=== PATIENT | male | born 1945 | race Caucasian/White ===

== ENCOUNTER 2017-10-15 15:45 | Inpatient (IN) | payer MEDICARE, BC ==
[2017-10-15] MEDS ORDERED: NYSTATIN CREAM 15 GM TOP (17:45)
[2017-10-15] MEDS ORDERED: NITROGLYCERIN 0.3 MG SUBL TAB SL (17:45)
[2017-10-15 17:48] LABS: INR 1.13; PROTHROMBIN TIME 14.7 SECONDS (12.1-14.4)
[2017-10-15 17:49] LABS: PARTIAL THROMBOPLASTIN TIME 27.8 SECONDS (25.4-37.6)
[2017-10-15 17:50] LABS: TROPONIN I 0.02 NG/ML (< 0.10)
[2017-10-15 17:58] LABS: ALBUMIN 3.1 GM/DL (3.2-5.2); ALKALINE PHOSPHATASE 47 U/L (45-117); ALT/SGPT 29 U/L (12-78); ANION GAP 7 MEQ/L (8-16); AST/SGOT 37 U/L (7-37); BILIRUBIN,TOTAL 2.2 MG/DL (0.2-1.0); BLOOD UREA NITROGEN 25 MG/DL (7-18); CALCIUM LEVEL 8.3 MG/DL (8.8-10.2); CARBON DIOXIDE LEVEL 29 MEQ/L (21-32); CHLORIDE LEVEL 106 MEQ/L (98-107); CREATININE FOR GFR 1.28 MG/DL (0.70-1.30); GLOMERULAR FILTRATION RATE 58.5 (>42); GLUCOSE, FASTING 91 MG/DL (70-100); MAGNESIUM LEVEL 2.2 MG/DL (1.8-2.4); NT-PRO BNP 413 PG/ML (<125); POTASSIUM SERUM 4.1 MEQ/L (3.5-5.1); SODIUM LEVEL 142 MEQ/L (136-145); TOTAL PROTEIN 6.2 GM/DL (6.4-8.2)
[2017-10-15 18:32] LABS: HEMATOCRIT 30.6 % (42.0-52.0); HEMOGLOBIN 10.1 g/dl (13.5-17.5); MEAN CORPUSCULAR HEMOGLOBIN 28.8 pg (27.0-33.0); MEAN CORPUSCULAR VOLUME 87.2 fl (80.0-96.0); PLATELET COUNT, AUTOMATED 173 10^3/uL (150-450); RED BLOOD COUNT 3.51 10^6/uL (4.30-6.10); RED CELL DISTRIBUTION WIDTH 17.2 % (11.5-14.5); WHITE BLOOD COUNT 10.6 10^3/uL (4.0-10.0)
[2017-10-15] MEDS: POTASSIUM CHLORIDE 10 MEQ SR TABLET PO (21:45)
[2017-10-15] MEDS: ATORVASTATIN 20 MG TAB PO (21:45)
[2017-10-15] MEDS: FENOFIBRATE 145 MG TAB (TRICOR) PO (21:45)
[2017-10-15] MEDS: traZODone 50 MG TAB PO (21:46)
[2017-10-15] MEDS: TIMOLOL MALEATE 0.5% OPHTH SOLN 5 ML OU (21:46)
[2017-10-15] MEDS: PANTOPRAZOLE 40MG INJ (PROTONIX) (C9113) IV (21:46)
[2017-10-15] MEDS: SINEMET 25-100 MG TAB PO (21:47)
[2017-10-15] MEDS: rOPINIRole 1MG TAB PO (21:48)
[2017-10-15] MEDS: PREGABALIN 75 MG CAP(LYRICA) PO (21:48)
[2017-10-15 23:05] LABS: HEMATOCRIT 30.3 % (42.0-52.0); HEMOGLOBIN 9.7 g/dl (13.5-17.5)
[2017-10-15 23:30] LABS: TROPONIN I 0.02 NG/ML (< 0.10)
[2017-10-16 05:45] LABS: HEMATOCRIT 28.7 % (42.0-52.0); HEMOGLOBIN 9.1 g/dl (13.5-17.5); MEAN CORPUSCULAR HEMOGLOBIN 28.9 pg (27.0-33.0); MEAN CORPUSCULAR HGB CONC 31.7 g/dl (32.0-36.5); MEAN CORPUSCULAR VOLUME 91.1 fl (80.0-96.0); PLATELET COUNT, AUTOMATED 174 10^3/uL (150-450); RED BLOOD COUNT 3.15 10^6/uL (4.30-6.10); RED CELL DISTRIBUTION WIDTH 17.4 % (11.5-14.5); WHITE BLOOD COUNT 7.7 10^3/uL (4.0-10.0)
[2017-10-16 06:02] LABS: ANION GAP 6 MEQ/L (8-16); BLOOD UREA NITROGEN 21 MG/DL (7-18); CALCIUM LEVEL 8.3 MG/DL (8.8-10.2); CARBON DIOXIDE LEVEL 29 MEQ/L (21-32); CHLORIDE LEVEL 106 MEQ/L (98-107); CREATININE FOR GFR 1.13 MG/DL (0.70-1.30); GLOMERULAR FILTRATION RATE > 60.0 (>42); GLUCOSE, FASTING 100 MG/DL (70-100); POTASSIUM SERUM 3.9 MEQ/L (3.5-5.1); SODIUM LEVEL 141 MEQ/L (136-145)
[2017-10-16 08:27] LABS: HEMATOCRIT 32.6 % (42.0-52.0); HEMOGLOBIN 10.2 g/dl (13.5-17.5)
[2017-10-16] MEDS: SINEMET 25-100 MG TAB PO ×2 (09:37→20:31)
[2017-10-16] MEDS: POTASSIUM CHLORIDE 10 MEQ SR TABLET PO ×4 (09:37→20:30)
[2017-10-16] MEDS: SERTRALINE 100 MG TAB PO (09:37)
[2017-10-16] MEDS: TIMOLOL MALEATE 0.5% OPHTH SOLN 5 ML OU ×2 (09:37→20:31)
[2017-10-16] MEDS: TORSEMIDE (DEMADEX) 50 MG PER 1/2 TAB PO (09:37)
[2017-10-16] MEDS: SPIRONOLACTONE 12.5MG PER 1/2 TABLET PO (09:37)
[2017-10-16] MEDS: PANTOPRAZOLE 40MG INJ (PROTONIX) (C9113) IV ×2 (09:38→20:31)
[2017-10-16] MEDS: PREGABALIN 75 MG CAP(LYRICA) PO ×2 (09:38→20:30)
[2017-10-16] MEDS: GOLYTELY SOLN 4000 ML BTL PO (16:08)
[2017-10-16] MEDS: BISACODYL 5 MG TAB PO (17:01)
[2017-10-16] MEDS ORDERED: SLF 3 ML SYR IV (17:30)
[2017-10-16] MEDS: traZODone 50 MG TAB PO (20:30)
[2017-10-16] MEDS: ATORVASTATIN 20 MG TAB PO (20:30)
[2017-10-16] MEDS: rOPINIRole 1MG TAB PO (20:30)
[2017-10-16] MEDS: FENOFIBRATE 145 MG TAB (TRICOR) PO (20:30)
[2017-10-16] MEDS: SLF 3 ML SYR IV (20:31)
[2017-10-17 05:14] LABS: HEMATOCRIT 29.6 % (42.0-52.0); HEMOGLOBIN 9.3 g/dl (13.5-17.5); MEAN CORPUSCULAR HEMOGLOBIN 28.4 pg (27.0-33.0); MEAN CORPUSCULAR HGB CONC 31.4 g/dl (32.0-36.5); MEAN CORPUSCULAR VOLUME 90.5 fl (80.0-96.0); PLATELET COUNT, AUTOMATED 180 10^3/uL (150-450); RED BLOOD COUNT 3.27 10^6/uL (4.30-6.10); WHITE BLOOD COUNT 7.2 10^3/uL (4.0-10.0)
[2017-10-17 05:36] LABS: ANION GAP 9 MEQ/L (8-16); BLOOD UREA NITROGEN 18 MG/DL (7-18); CALCIUM LEVEL 8.4 MG/DL (8.8-10.2); CARBON DIOXIDE LEVEL 29 MEQ/L (21-32); CHLORIDE LEVEL 105 MEQ/L (98-107); CREATININE FOR GFR 1.19 MG/DL (0.70-1.30); GLOMERULAR FILTRATION RATE > 60.0 (>42); GLUCOSE, FASTING 101 MG/DL (70-100); POTASSIUM SERUM 3.8 MEQ/L (3.5-5.1); SODIUM LEVEL 143 MEQ/L (136-145)
[2017-10-17] MEDS: SLF 3 ML SYR IV ×3 (06:00→21:12)
[2017-10-17] MEDS: TORSEMIDE (DEMADEX) 50 MG PER 1/2 TAB PO (08:37)
[2017-10-17] MEDS: PREGABALIN 75 MG CAP(LYRICA) PO ×2 (08:37→21:11)
[2017-10-17] MEDS: SERTRALINE 100 MG TAB PO (08:37)
[2017-10-17] MEDS: PANTOPRAZOLE 40MG INJ (PROTONIX) (C9113) IV ×2 (08:37→21:09)
[2017-10-17] MEDS: SPIRONOLACTONE 12.5MG PER 1/2 TABLET PO (08:37)
[2017-10-17] MEDS: SINEMET 25-100 MG TAB PO ×2 (08:37→21:10)
[2017-10-17] MEDS: POTASSIUM CHLORIDE 10 MEQ SR TABLET PO ×4 (08:37→21:11)
[2017-10-17] MEDS: TIMOLOL MALEATE 0.5% OPHTH SOLN 5 ML OU ×2 (08:38→21:11)
[2017-10-17] MEDS ORDERED: LIDOCAINE 2% INJ 100 MG/5 ML SYRINGE As Ordered (14:25)
[2017-10-17] MEDS ORDERED: PROPOFOL 200 MG/20 ML VIAL As Ordered (14:25)
[2017-10-17] MEDS: ATORVASTATIN 20 MG TAB PO (21:09)
[2017-10-17] MEDS: rOPINIRole 1MG TAB PO (21:10)
[2017-10-17] MEDS: FENOFIBRATE 145 MG TAB (TRICOR) PO (21:11)
[2017-10-17] MEDS: traZODone 50 MG TAB PO (21:11)
[2017-10-18] MEDS: SLF 3 ML SYR IV ×3 (05:16→22:04)
[2017-10-18 05:58] LABS: HEMATOCRIT 29.3 % (42.0-52.0); MEAN CORPUSCULAR HEMOGLOBIN 28.3 pg (27.0-33.0); MEAN CORPUSCULAR HGB CONC 30.7 g/dl (32.0-36.5); MEAN CORPUSCULAR VOLUME 92.1 fl (80.0-96.0); PLATELET COUNT, AUTOMATED 191 10^3/uL (150-450); RED BLOOD COUNT 3.18 10^6/uL (4.30-6.10); RED CELL DISTRIBUTION WIDTH 16.7 % (11.5-14.5); WHITE BLOOD COUNT 7.3 10^3/uL (4.0-10.0)
[2017-10-18 06:10] LABS: ANION GAP 3 MEQ/L (8-16); BLOOD UREA NITROGEN 21 MG/DL (7-18); CALCIUM LEVEL 8.5 MG/DL (8.8-10.2); CARBON DIOXIDE LEVEL 33 MEQ/L (21-32); CHLORIDE LEVEL 104 MEQ/L (98-107); CREATININE FOR GFR 1.37 MG/DL (0.70-1.30); GLOMERULAR FILTRATION RATE 54.1 (>42); GLUCOSE, FASTING 109 MG/DL (70-100); POTASSIUM SERUM 4.1 MEQ/L (3.5-5.1); SODIUM LEVEL 140 MEQ/L (136-145)
[2017-10-18] MEDS: NS 250 ML IV (06:54)
[2017-10-18] MEDS ORDERED: TORSEMIDE 10 MG TABLET PO (09:00)
[2017-10-18] MEDS ORDERED: SPIRONOLACTONE 12.5MG PER 1/2 TABLET PO (09:00)
[2017-10-18] MEDS: PANTOPRAZOLE 40MG INJ (PROTONIX) (C9113) IV ×2 (09:17→22:03)
[2017-10-18] MEDS: TIMOLOL MALEATE 0.5% OPHTH SOLN 5 ML OU ×2 (09:17→22:04)
[2017-10-18] MEDS: POTASSIUM CHLORIDE 10 MEQ SR TABLET PO ×4 (09:18→22:04)
[2017-10-18] MEDS: SINEMET 25-100 MG TAB PO ×2 (09:18→22:04)
[2017-10-18] MEDS: PREGABALIN 75 MG CAP(LYRICA) PO ×2 (09:18→22:03)
[2017-10-18] MEDS: SERTRALINE 100 MG TAB PO (09:18)
[2017-10-18] MEDS: APIXABAN 5 MG TAB (ELIQUIS) PO ×2 (13:59→22:04)
[2017-10-18] MEDS: FENOFIBRATE 145 MG TAB (TRICOR) PO (22:03)
[2017-10-18] MEDS: ATORVASTATIN 20 MG TAB PO (22:03)
[2017-10-18] MEDS: rOPINIRole 1MG TAB PO (22:03)
[2017-10-18] MEDS: traZODone 50 MG TAB PO (22:03)
[2017-10-19] MEDS: SLF 3 ML SYR IV ×3 (05:28→20:15)
[2017-10-19 06:19] LABS: HEMATOCRIT 28.7 % (42.0-52.0); HEMOGLOBIN 8.9 g/dl (13.5-17.5); MEAN CORPUSCULAR VOLUME 93.5 fl (80.0-96.0); PLATELET COUNT, AUTOMATED 170 10^3/uL (150-450); RED BLOOD COUNT 3.07 10^6/uL (4.30-6.10); WHITE BLOOD COUNT 6.5 10^3/uL (4.0-10.0)
[2017-10-19 06:40] LABS: ANION GAP 4 MEQ/L (8-16); BLOOD UREA NITROGEN 20 MG/DL (7-18); CALCIUM LEVEL 8.8 MG/DL (8.8-10.2); CARBON DIOXIDE LEVEL 30 MEQ/L (21-32); CHLORIDE LEVEL 108 MEQ/L (98-107); CREATININE FOR GFR 1.32 MG/DL (0.70-1.30); GLOMERULAR FILTRATION RATE 56.4 (>42); GLUCOSE, FASTING 114 MG/DL (70-100); POTASSIUM SERUM 4.3 MEQ/L (3.5-5.1); SODIUM LEVEL 142 MEQ/L (136-145)
[2017-10-19] MEDS ORDERED: SPIRONOLACTONE 12.5MG PER 1/2 TABLET PO (09:00)
[2017-10-19] MEDS ORDERED: TORSEMIDE (DEMADEX) 50 MG PER 1/2 TAB PO (09:00)
[2017-10-19] MEDS: PANTOPRAZOLE 40MG INJ (PROTONIX) (C9113) IV ×2 (09:37→20:12)
[2017-10-19] MEDS: POTASSIUM CHLORIDE 10 MEQ SR TABLET PO ×4 (09:38→20:13)
[2017-10-19] MEDS: TORSEMIDE 10 MG TABLET PO (09:38)
[2017-10-19] MEDS: SERTRALINE 100 MG TAB PO (09:38)
[2017-10-19] MEDS: PREGABALIN 75 MG CAP(LYRICA) PO ×2 (09:38→20:13)
[2017-10-19] MEDS: APIXABAN 5 MG TAB (ELIQUIS) PO ×2 (09:38→20:13)
[2017-10-19] MEDS: SPIRONOLACTONE 12.5MG PER 1/2 TABLET PO (09:38)
[2017-10-19] MEDS: SINEMET 25-100 MG TAB PO ×2 (09:38→20:13)
[2017-10-19] MEDS: TIMOLOL MALEATE 0.5% OPHTH SOLN 5 ML OU ×2 (09:39→20:14)
[2017-10-19] MEDS: FUROSEMIDE 20 MG/2 ML VIAL (J1940) IV (11:01)
[2017-10-19] MEDS: rOPINIRole 1MG TAB PO (20:12)
[2017-10-19] MEDS: FENOFIBRATE 145 MG TAB (TRICOR) PO (20:13)
[2017-10-19] MEDS: traZODone 50 MG TAB PO (20:13)
[2017-10-19] MEDS: ATORVASTATIN 20 MG TAB PO (20:13)
[2017-10-20] MEDS: SLF 3 ML SYR IV (05:21)
[2017-10-20 06:30] LABS: HEMATOCRIT 28.6 % (42.0-52.0); MEAN CORPUSCULAR HEMOGLOBIN 28.6 pg (27.0-33.0); MEAN CORPUSCULAR HGB CONC 31.5 g/dl (32.0-36.5); MEAN CORPUSCULAR VOLUME 90.8 fl (80.0-96.0); PLATELET COUNT, AUTOMATED 174 10^3/uL (150-450); RED BLOOD COUNT 3.15 10^6/uL (4.30-6.10); WHITE BLOOD COUNT 7.4 10^3/uL (4.0-10.0)
[2017-10-20 06:47] LABS: ANION GAP 5 MEQ/L (8-16); BLOOD UREA NITROGEN 20 MG/DL (7-18); CALCIUM LEVEL 9.1 MG/DL (8.8-10.2); CARBON DIOXIDE LEVEL 31 MEQ/L (21-32); CHLORIDE LEVEL 108 MEQ/L (98-107); CREATININE FOR GFR 1.45 MG/DL (0.70-1.30); GLOMERULAR FILTRATION RATE 50.6 (>42); GLUCOSE, FASTING 100 MG/DL (70-100); POTASSIUM SERUM 4.3 MEQ/L (3.5-5.1); SODIUM LEVEL 144 MEQ/L (136-145)
[2017-10-20] MEDS: PANTOPRAZOLE 40MG INJ (PROTONIX) (C9113) IV (08:24)
[2017-10-20] MEDS: SPIRONOLACTONE 12.5MG PER 1/2 TABLET PO (08:24)
[2017-10-20] MEDS: TORSEMIDE (DEMADEX) 50 MG PER 1/2 TAB PO (08:25)
[2017-10-20] MEDS: PREGABALIN 75 MG CAP(LYRICA) PO (08:25)
[2017-10-20] MEDS: SINEMET 25-100 MG TAB PO (08:25)
[2017-10-20] MEDS: TIMOLOL MALEATE 0.5% OPHTH SOLN 5 ML OU (08:25)
[2017-10-20] MEDS: SERTRALINE 100 MG TAB PO (08:25)
[2017-10-20] MEDS: APIXABAN 5 MG TAB (ELIQUIS) PO (08:25)
[2017-10-20] MEDS: POTASSIUM CHLORIDE 10 MEQ SR TABLET PO (08:25)
== END 2017-10-20 14:04 | disposition home or self-care (01) | DRG 378 ==
LOC: M PCU 15:45
PROVIDERS: Internal Medicine
PROC: 0DBL8ZX Excision of Transverse Colon, Via Natural or Artificial Opening Endoscopic, Diagnostic (ICD-10-PCS; principal; 2017-10-17 14:20)
PROC: 0DBK8ZX Excision of Ascending Colon, Via Natural or Artificial Opening Endoscopic, Diagnostic (ICD-10-PCS; 2017-10-17 14:20)
PROC: 0DB68ZX Excision of Stomach, Via Natural or Artificial Opening Endoscopic, Diagnostic (ICD-10-PCS; 2017-10-17 14:20)
DX: K92.2 Gastrointestinal hemorrhage, unspecified (principal); D62 Acute posthemorrhagic anemia; N17.9 Acute kidney failure, unspecified; I25.10 Atherosclerotic heart disease of native coronary artery without angina pectoris; G47.33 Obstructive sleep apnea (adult) (pediatric); K21.9 Gastro-esophageal reflux disease without esophagitis; I11.0 Hypertensive heart disease with heart failure; I50.9 Heart failure, unspecified; Z86.73 Personal history of transient ischemic attack (TIA), and cerebral infarction without residual deficits; I48.91 Unspecified atrial fibrillation; Z79.01 Long term (current) use of anticoagulants; F41.9 Anxiety disorder, unspecified; G25.81 Restless legs syndrome; E78.5 Hyperlipidemia, unspecified; Z79.899 Other long term (current) drug therapy; R73.03 Prediabetes; Z95.1 Presence of aortocoronary bypass graft; Z96.649 Presence of unspecified artificial hip joint; Z87.891 Personal history of nicotine dependence; Z79.82 Long term (current) use of aspirin; D12.2 Benign neoplasm of ascending colon; D12.3 Benign neoplasm of transverse colon; K64.8 Other hemorrhoids

== ENCOUNTER 2018-03-28 09:20 | Outpatient (CLI) | payer MEDICARE, BC ==
[~2018-03-28] VITALS: Ht 167.6 cm; Wt 125.0 kg
[2018-03-28] VITALS (7 sets, daily range): BP systolic 104–165; BP diastolic 46–70
[~2018-03-28 09:20] MED LIST: /ATOR40TA; ASPI1TAB PO; ATOR80TA59 PO; AVAP75TA5; BABY81CH; BIMA01SOL OU; BUDE150T; CARB25TA9 PO; CLON0.5T; DEMA100T; ELIQ5TAB PO; FENO160T10 PO; FENOFIBRATE; GABA300T; JANUVIA; LISI2.5T5 PO; LYRI75CA PO; NIAS500T2; NITR0.4S; NITR0.4S14 SL; NYST10CR TOP; PLAV75TA2; POTA10CA2; POTA1TAB23 PO; ROPI1TAB PO; SENN8.6T5; SERT-138 PO; SERT50TA2; SPIR-10 PO; SPIR25TA2; TIMO0.5S29 OU; TORS100T PO; TORSEMIDE; TRAZ-160 PO; TRAZ50TA; ZARO2.5T; [UNRECOGNIZED DRUG - OTHER]
[2018-03-28] MEDS ORDERED: IRON SUCROSE 25 MG in NS 50 ML IV ONE (09:30)
[2018-03-28] MEDS ORDERED: IRON SUCROSE 375 MG in NS 250 ML IV ONE (09:30)
== END 2018-03-28 15:15 | disposition home or self-care (01) ==
LOC: M INFU 09:20
PROVIDERS: ATTEND Internal Medicine Nephrology
DX: D50.9 Iron deficiency anemia, unspecified (principal)
CPT/HCPCS: 96365; 96366; J1756

== ENCOUNTER 2018-10-17 15:31 | Inpatient (IN) | payer MEDICARE, BC ==
[~2018-10-17] VITALS: Ht 170.2 cm; Wt 125.6 kg
[~2018-10-17 15:31] MED LIST changes: -/ATOR40TA; -ASPI1TAB PO; +ASPI81TA26 PO; +LIPI1TAB2; +LISI-1046 PO; -LISI2.5T5 PO; +PREVNAR 13 VACCINE SYRINGE (CPT CODE:90670) IM ONE; -TRAZ-160 PO; +TRAZ-252 PO
[2018-10-17] MEDS ORDERED: ROSU40TA4 PO (16:13)
[2018-10-17] MEDS ORDERED: FERR325T3 PO (16:13)
[2018-10-17] MEDS ORDERED: VITA1CAP25 PO (16:13)
[2018-10-17] MEDS ORDERED: PANT40TA3 PO (16:13)
[2018-10-17] MEDS ORDERED: ZYLO300T6 PO (16:13)
[2018-10-17] MEDS ORDERED: NS 1,000 ML IV SCH (16:48)
[2018-10-17] MEDS ORDERED: PANTOPRAZOLE 40MG INJ (PROTONIX) (C9113) IV ONE (17:00)
[2018-10-17 17:12] LABS: BASO # 0.1 10^3/uL (0.0-0.2); EOS # 0.2 10^3/uL (0.0-0.50); EOS % 2.7 % (0.0-3.0); HEMATOCRIT 23.5 % (42.0-52.0); LYMPH # 1.8 10^3/uL (1.5-4.5); MEAN CORPUSCULAR HEMOGLOBIN 26.3 pg (27.0-33.0); MEAN CORPUSCULAR HGB CONC 29.8 g/dl (32.0-36.5); MEAN CORPUSCULAR VOLUME 88.3 fl (80.0-96.0); MONO # 0.7 10^3/uL (0.0-0.8); MONO % 9.7 % (0.0-5.0); NEUTROPHILS # 4.2 10^3/uL (1.8-7.7); NEUTROPHILS % 60.3 % (36.0-66.0); PLATELET COUNT, AUTOMATED 144 10^3/uL (150-450); RED BLOOD COUNT 2.66 10^6/uL (4.30-6.10); WHITE BLOOD COUNT 6.9 10^3/uL (4.0-10.0)
[2018-10-17 17:17] LABS: ALBUMIN 3.2 GM/DL (3.2-5.2); BILIRUBIN,DIRECT 0.4 MG/DL (0.0-0.2); BILIRUBIN,TOTAL 0.7 MG/DL (0.2-1.0); CALCIUM LEVEL 8.8 MG/DL (8.8-10.2); CK-MB VALUE MASS 2.6 NG/ML (<3.6); CREATININE FOR GFR 1.69 MG/DL (0.70-1.30); GLOMERULAR FILTRATION RATE 42.3 (>42); MB/CK RELATIVE INDEX 1.22 (< OR =4); POTASSIUM SERUM 3.9 MEQ/L (3.5-5.1); TOTAL PROTEIN 6.5 GM/DL (6.4-8.2); TROPONIN I 0.02 NG/ML (< 0.10)
[2018-10-17 17:33] LABS: INR 1.6; PROTHROMBIN TIME 18.8 SECONDS (11.8-14.0)
[2018-10-17] MEDS ORDERED: MORPHINE 4 MG/ML 1ML VIAL/SYRINGE (J2270) IV ONE (17:45)
[2018-10-17] MEDS ORDERED: ONDANSETRON 4MG/2ML VIAL (J2405) IV ONE (17:45)
[2018-10-17] MEDS ORDERED: ROPI5TAB3 PO (18:22)
[2018-10-17] MEDS ORDERED: ROSU20TA5 PO (18:22)
[2018-10-17] MEDS ORDERED: DRIS50003 PO (18:23)
[2018-10-17] MEDS ORDERED: TORS20TA2 PO (18:23)
--- NOTE | 2018-10-17 18:23 | REPVR ---
EXAM: CT Lumbar Spine Without Contrast EXAM DATE/TIME: 10/17/2018 5:54 PM CLINICAL HISTORY: 73 years old, male; Injury or trauma; Fall; Initial encounter; Blunt trauma (contusions or hematomas) TECHNIQUE: Imaging protocol: Computed tomography images of the lumbar spine without contrast. Coronal and sagittal reformatted images were created and reviewed. Radiation optimization: All CT scans at this facility use at least one of these dose optimization techniques: automated exposure control; mA and/or kV adjustment per patient size (includes targeted exams where dose is matched to clinical indication); or iterative reconstruction. COMPARISON: MRI-Spine, L.S. without con 01/20/2015 11:02 AM FINDINGS: Vertebrae: Slight anterolisthesis of L4 on L5. Degenerative spondylosis at all lumbar levels with varying degrees of loss of disc height and intervertebral osteophytes. Contour deformity along the superior endplate of L3 to the left of midline with linear lucencies demonstrated within the bone, findings which may indicate a nondisplaced compression fracture (see series 203, image 19, series 201 image 33 and series 204 image 22). Discs/Spinal canal/Neural foramina: Moderate central spinal stenosis at L2-L3, mild to moderate central spinal stenosis L3-L4, severe central spinal stenosis L4-L5 secondary to bulging annuli in combination with bilateral facet joint arthropathy and thickened ligamentum flavum. Bulging annuli L5-S1 without central spinal stenosis. Bilateral facet joint arthropathy. Other bones/joints: Osteoporosis. Soft tissues: Unremarkable. IMPRESSION: 1. Contour deformity along the superior endplate of L3 to the left of midline with linear lucencies demonstrated within the bone, findings which may indicate a nondisplaced compression fracture. 2. Moderate central spinal stenosis at L2-L3, mild to moderate central spinal stenosis L3-L4, severe central spinal stenosis L4-L5 secondary to bulging annuli in combination with bilateral facet joint arthropathy and thickened ligamentum flavum. 3. Bulging annuli L5-S1 without central spinal stenosis. Bilateral facet joint arthropathy. Electronically signed by: Von Olvera On 10/17/2018 18:23:25 PM
--- NOTE | 2018-10-17 18:45 | REPVR ---
EXAM: CT Pelvis Without Contrast EXAM DATE/TIME: 10/17/2018 6:29 PM CLINICAL HISTORY: 73 years old, male; Abdominal pain; Lower abdomen; Additional info: R/O blood TECHNIQUE: Imaging protocol: Axial computed tomography images of the pelvis without intravenous contrast. Coronal and sagittal reformatted images were created and reviewed. Radiation optimization: All CT scans at this facility use at least one of these dose optimization techniques: automated exposure control; mA and/or kV adjustment per patient size (includes targeted exams where dose is matched to clinical indication); or iterative reconstruction. COMPARISON: BLADDER (LIMITED PELVIC) US 03/11/2014 3:12 PM FINDINGS: Kidneys and ureters: Nonobstructive calculus lower pole right and left kidneys. Stomach and bowel: Visualized small bowel and colon are unremarkable. Appendix: No evidence of appendicitis. Bladder: Normal. No mass. Reproductive: Normal as visualized. Intraperitoneal space: Unremarkable. No free air. No significant fluid collection. Lymph nodes: Unremarkable. No enlarged lymph nodes. Bones/joints: Status post total hip replacement on the left. Degenerative spondylosis lower lumbar spine. Degenerative arthropathy right hip. Soft tissues: Unremarkable. Other findings: Osteoporosis. IMPRESSION: No acute findings. Electronically signed by: Von Olvera On 10/17/2018 18:45:21 PM
--- NOTE | 2018-10-17 19:17 | HPEPDOC ---
[facility] Medical History & Physical Date of Admission Oct 17, 2018 Date of Service: Oct 17, 2018 Primary Care Physician: Brooklyn Keyes Attending Physician: JETHRO AQUINO MD History and Physical Time of service 8 pm CHIEF COMPLAINT: sent by PCP HISTORY OF PRESENT ILLNESS: This is a 73-year-old male who was sent by PCP for evaluation of acute anemia. In the ED his hemoglobin was 7. He denies having blood when he brushes his teeth, denies having blood in the urine, and is having blood mixed with his stools, and is having chest pain, denies having cough, denies feeling dizzy, denies having headaches, denies having abdominal pain and denies having fevers or chills. He reports having a fall about 2 weeks ago and developed left lower back pain and dyspnea thereafter. The dyspnea has not resolved. CT of the abdomen done in the ED was negative for any acute process. Of note , patient has a history of acute blood loss anemia secondary to GI bleed and was transferred to [facility] in October 2017. The EGD showed mild duodenal bulb inflammation and gastritis and no active bleeding while colonoscopy showed a few colonic polyps and hemorrhoids. REVIEW OF SYSTEMS: Review of systems negative except as listed in HPI PAST MEDICAL/SURGICAL HISTORY: 1 Prediabetes. 2. Atrial fibrillation on Eliquis 3. Chronic coronary artery disease status post CABG /dyslipidemia 4. Hx Diastolic Chronic congestive heart failure ? 5. History of CVA .residual deficits, status post carotid endarterectomy in 1973 6. Obstructive sleep apnea, not on CPAP. 7. Chronic hypertension. 8. GERD 9. Restless leg syndrome. 10. History of acute blood loss anemia SOCIAL HISTORY: Smoking Quit drinking. Denies IV drug use FAMILY HISTORY: CVA ALLERGIES: Please see below. HOME MEDICATIONS: Please see below. PHYSICAL EXAMINATION: VITAL SIGNS: Temperature 97.5, pulse 70, respiratory rate 16, blood pressure 101/63, pulse oxygen symmetry 97% on room air GENERAL APPEARANCE: Obese, well-developed, not in apparent distress HEENT: No conjunctival pallor, mucous membranes dry, no angular keratosis, no glossitis, , the neck is short with excess subcutaneous tissue CARDIOVASCULAR: Regular rate and rhythm, no murmurs, rubs or gallops, radial pulses are intact, extremity is warm and well-perfused, there is trace bilateral pitting edema LUNGS: Clear to auscultation bilaterally on room air ABDOMEN: Bowel sounds are hypoactive, the abdomen is obese, soft and nontender on palpation. INTEGUMENT: He has generalized pallor, there are spider angiomata distributed on the cheeks and neck NEUROLOGICAL cranial nerves II through XII are grossly intact, speech is not dysarthric PSYCHIATRIC: Alert and oriented to person, place and time, able to understand and follow commands LABORATORY DATA: CBC is remarkable for hemoglobin of 7.0 with MCV of 88.3 and platelet count of 144 The chemistries remarkable for BUN is 26, creatinine 1.69, glucose 132, and alkaline phosphatase of 119. IMAGING: CT of the pelvis was negative for an acute process. CT of the lumbar spine showed linear lucencies which may indicate a nondisplaced compression fracture at L3, moderate central spinal stenosis at L2-L3, L3-L4, and severe spinal stenosis at L4-L5. MICROBIOLOGY: Please see below. ASSESSMENT: Mr. Franz is a 73-year-old male with a past medical history of acute anemia, hypertension, congestive heart failure, atrial fibrillation, prediabetes, GERD, and sleep apnea who will be admitted for evaluation of acute anemia. PLAN: Acute blood loss anemia 1. Bicytopenia Hg 6.8 with a Plts # of 144 He has a hx of acute anemia in 2018, the EGD/C-scope in 2018 showed gastritis, hemorrohids and colonic polyps Plan: admit to PCU / transfuse 1 units / f/u serial Hg , reticulocyte #, iron panel w ferritin, B12, folate, thiamine / stool occult / CLD w IVF pending Gen Surg eval / hold Eliquis and oral iron / IV PPI 2. Fall resulting in compression fracture of L3 / Osteoporosis CT of the lumbar spine revealed L3 compression fracture along with spinal stenosis affecting several vertebrae Plan: fall precautions/physical therapy consult to determine if he needs inpatient rehabilitation versus placement in an assisted living facility/ the daytime team can touch base with Ortho to see if the patient should to follow-up with them here or on an outpatient basis / pain control w lidocaine patches, Tylenol, and tramadol / he will need work-up to r/o secondary causes of Osteoporosis (ie DEXA, TSH, Calcium, 25-OH Vitamin D, Urine calcium) which can be done on an out pt prior to selecting medications 3. Acute renal insufficiency versus CKD Previous creatinine was 1.45 in October 2017. Today it is 1.69 Previous GFR was 50.6. Today it is 42.3 Plan: 500ml bolus /follow-up BMP and renal ultrasound 4.Prediabetes. Plan: f/u A1C 5 Atrial fibrillation on Eliquis Plan: hold eliquis / telemetry 6. Chronic coronary artery disease status post CABG /dyslipidemia Plan: c/w home meds 7. Hx of Chronic congestive heart failure? Echo Done in Oct showed EF of 60% and EA ratio of 1.7, normal PAP and no rmal LV dystolic function and LA pessure Plan: f/u Is/OS, daily weights / c/w home meds 8. History of CVA Plan: c/w home meds 9. Chronic hypertension. Plan: c/w home meds 10. GERD Plan: switch to IV PPI for now 11. Restless leg syndrome. Plan: c/w home meds 12. 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 & referral for Bariatric surgery / recommend cardiovascular exercise for 40 min 4-5 days a week DVT Px w SCDs Dispo: pending clinical course Laboratory Data CBC/BMP Laboratory Tests 10/17/18 16:16 Red Blood Count 2.66 L, Mean Corpuscular Volume 88.3, Mean Corpuscular Hemoglobin 26.3 L, Mean Corpuscular Hemoglobin Concent 29.8 L, Red Cell Distribution Width 15.6 H, Neutrophils (%) (Auto) 60.3, Lymphocytes (%) (Auto) 26.0, Monocytes (%) (Auto) 9.7 H, Eosinophils (%) (Auto) 2.7, Basophils (%) (Auto) 1.0, Neutrophils # (Auto) 4.2, Lymphocytes # (Auto) 1.8, Monocytes # (Auto) 0.7, Eosinophils # (Auto) 0.2, Basophils # (Auto) 0.1 Home Medications Scheduled Allopurinol (Zyloprim) 300 Mg Tablet, 300 MG PO DAILY Apixaban (Eliquis) 5 Mg Tab, 5 MG PO BID Ergocalciferol (Vitamin D2) (Drisdol) 50,000 Unit Capsule, 50,000 UNIT PO 1XWK SUNDAYS Fenofibrate (Fenofibrate) 160 Mg Tab, 160 MG PO DAILY Ferrous Sulfate (Ferrous Sulfate) 325 Mg Tablet.dr, 325 MG PO DAILY Pantoprazole Sodium (Pantoprazole Sodium) 40 Mg Tablet.dr, 40 MG PO DAILY Potassium Chloride (Potassium Chloride) 10 Meq Tab, 10 MEQ PO TID Pregabalin (Lyrica) 75 Mg Cap, 200 MG PO TID Ropinirole HCl (Ropinirole HCl) 5 Mg Tablet, 5 MG PO QHS Rosuvastatin Calcium (Rosuvastatin Calcium) 20 Mg Tablet, 20 MG PO DAILY Sertraline HCl (Sertraline HCl) 100 Mg Tab, 100 MG PO DAILY Spironolactone (Spironolactone) 25 Mg Tab, 12.5 MG PO DAILY Torsemide (Torsemide) 100 Mg Tab, 100 MG PO DAILY Torsemide (Torsemide) 20 Mg Tablet, 40 MG PO QPM Scheduled PRN Nitroglycerin (Nitroglycerin) 0.4 Mg Sub, 0.4 MG SL Q5MP PRN for CHEST PAIN Allergies Coded Allergies: No Known Allergies (Verified , 03/02/05) A-FIB/CHADSVASC A-FIB History Current/History of A-Fib/PAF?: Yes Current PO Anticoag Therapy: Yes Treatment Treatment ordered: Apixaban JETHRO AQUINO MD Oct 17, 2018 19:17
[2018-10-17 20:28] LABS: PERCENT SATURATION 5.2 % (19.7-50.0)
[2018-10-17] MEDS ORDERED: ACETAMINOPHEN 650MG ER TAB (TYLENOL ARTHRITIS) PO PRN (20:30)
[2018-10-17] MEDS ORDERED: NS 500 ML IV ONE (20:45)
[2018-10-17] MEDS ORDERED: traMADol 50 MG TAB PO ONE (20:45)
[2018-10-17 22:02] VITALS: BP 124/58
[2018-10-17] MEDS: TORSEMIDE 20 MG TAB PO SCH (22:28)
[2018-10-17] MEDS: PREGABALIN 100 MG CAP (LYRICA) PO SCH (22:28)
[2018-10-17] MEDS: rOPINIRole 1MG TAB PO SCH (22:28)
[2018-10-17] MEDS: LIDOCAINE 5% (LIDODERM) PATCH TD SCH (22:29)
[2018-10-17] MEDS: POTASSIUM CHLORIDE 10 MEQ SR TABLET PO SCH (22:29)
[2018-10-17 23:59] VITALS: BP 128/58
[2018-10-18 02:04] LABS: HEMATOCRIT 28.7 % (42.0-52.0)
[2018-10-18 02:05] LABS: HEMOGLOBIN 8.8 g/dl (13.5-17.5)
[2018-10-18 04:00] VITALS: BP 111/57
[2018-10-18 07:14] LABS: HEMATOCRIT 29.8 % (42.0-52.0); MEAN CORPUSCULAR HEMOGLOBIN 27.6 pg (27.0-33.0); MEAN CORPUSCULAR HGB CONC 30.2 g/dl (32.0-36.5); MEAN CORPUSCULAR VOLUME 91.4 fl (80.0-96.0); PLATELET COUNT, AUTOMATED 117 10^3/uL (150-450); RED BLOOD COUNT 3.26 10^6/uL (4.30-6.10); WHITE BLOOD COUNT 5.9 10^3/uL (4.0-10.0)
--- NOTE | 2018-10-18 07:21 | REPVR ---
EXAM: US Retroperitoneal Limited, Kidneys EXAM DATE/TIME: 10/18/2018 5:48 AM CLINICAL HISTORY: 73 years old, male; Condition or disease; Other: Trev vs ckd TECHNIQUE: Imaging protocol: Real-time ultrasound of the retroperitoneum with image documentation. Examination was focused on the kidneys. COMPARISON: No relevant prior studies available. FINDINGS: Right kidney: Right kidney 10.8 cm. Left kidney: Left kidney 7.9 cm. There is a 1.5 cm simple appearing cyst within the left kidney. The left kidney is atrophic. Bladder: The bladder is collapsed and therefore not fully evaluated. IMPRESSION: No acute findings are identified. Please see above report for incidental findings. Electronically signed by: Justin Rivera On 10/18/2018 07:21:01 AM
[2018-10-18 07:24] LABS: INR 1.4; PROTHROMBIN TIME 16.9 SECONDS (11.8-14.0)
[2018-10-18 07:29] LABS: CALCIUM LEVEL 8.4 MG/DL (8.8-10.2); CREATININE FOR GFR 1.3 MG/DL (0.70-1.30); GLOMERULAR FILTRATION RATE 57.3 (>42); MAGNESIUM LEVEL 2.3 MG/DL (1.8-2.4); POTASSIUM SERUM 3.5 MEQ/L (3.5-5.1)
[2018-10-18 08:00] VITALS: BP 133/74
[2018-10-18] MEDS: SPIRONOLACTONE 12.5MG PER 1/2 TABLET PO SCH (08:27)
[2018-10-18] MEDS: PREGABALIN 100 MG CAP (LYRICA) PO SCH ×3 (08:27→20:13)
[2018-10-18] MEDS: TORSEMIDE 100 MG TAB PO SCH (08:28)
[2018-10-18] MEDS: POTASSIUM CHLORIDE 10 MEQ SR TABLET PO SCH ×3 (08:28→20:13)
[2018-10-18] MEDS: ROSUVASTATIN 10 MG TAB (CRESTOR) PO SCH (08:28)
[2018-10-18] MEDS: allopurinoL 300 MG TAB PO SCH (08:28)
[2018-10-18] MEDS: SERTRALINE 100 MG TAB PO SCH (08:28)
[2018-10-18] MEDS: **NOTE PATIENT COMMENT** MISC XX SCH (08:29)
[2018-10-18] MEDS ORDERED: PANTOPRAZOLE 40MG INJ (PROTONIX) (C9113) IV SCH (09:00)
[2018-10-18] MEDS ORDERED: PANTOPRAZOLE 20 MG TAB PO SCH (09:00)
[2018-10-18] MEDS: SUCRALFATE 1 GM TAB PO SCH ×3 (11:01→20:13)
[2018-10-18] MEDS: OMEPRAZOLE 20 MG CAP PO SCH ×2 (11:01→20:13)
--- NOTE | 2018-10-18 11:42 | IPNPDOC ---
Subjective Date Seen The patient was seen on 10/18/18. Subjective Chief Complaint/HPI Patient is comfortable, complaining of pain in his left hip and pelvic area, but no history of GI bleed. As per patient, he has difficulty ambulating and performing his routine of daily work General: Denies: ROS Unobtainable, Chills, Night Sweats, Fatigue, Malaise, Normal Appetite, Other Symptoms Constitutional: Denies: Chills, Fever, Malaise, Night Sweats, Weakness, Fatigue, Weight Loss, Lethargy, Other Eyes: Denies: Pain, Vision change, Conjunctivae inflammation, Eyelid in flammation, Redness, Other ENT: Denies: Head Aches, Ear Pain, Dysphagia, Sinus Congestion, Post Nasal Drip, Sore Throat, Epistaxis, Other Symptoms Skin: Denies: Rash, Lesions, Jaundice, Bruising, Itching, Dry, Breakdown, Nail Changes, Other Pulmonary: Denies: Dyspnea, Cough, Pleuritic Chest Pain, Other Symptoms Gastrointestinal: Denies: Nausea, Vomiting, Abdominal Pain, Diarrhea, Constipation, Melena, Hematochezia, Other Symptoms Musculoskeletal: Reports: Other Symptoms (pain and left hip) Neurological: Denies: Weakness, Numbness, Incoordination, Change in speech, Confusion, Seizures, Other Symptoms Psych: Denies: Mood Normal, Anxiety, Depression, Memory Issues, Thoughts of Self Harm, Anger, Thoughts of Harming Other, Other Psych Objective Physical Examination General Exam: Positive: Alert, Cooperative Eye Exam: Positive: PERRLA ENT Exam: Positive: Atraumatic, Mucous membr. moist/pink Neck Exam: Positive: Supple Chest Exam: Positive: Clear to auscultation Heart Exam: Positive: Rate Normal, Normal S1, Normal S2 Abdomen Exam: Positive: Normal bowel sounds, Soft Male Exam: Positive: Normal Genital Exam Extremity Exam: Positive: Normal pulses Skin Exam: Positive: Nl turgor and temperature Neuro Exam: Positive: Strength at 5/5 X4 ext, Sensation Intact Assessment /Plan Problems (1) Anemia Status: Acute Response to Treatment: Stable Problem Text: Most likely cause is probably GI bleed secondary to eliquis Patient recently had an endoscopy and colonoscopy done without any source of active bleed Patient did receive transfusion of 1 unit of PRBC with improvement in hemoglobin I had extensive discussion with daughter and patient at bedside. All risks and benefits of eliquis were explained to him and the daughter and they both understand that it's will be in patient's best interest to stop eliquis as patient has a recurrent GI bleed secondary to above and patient can be started on aspirin 81 mg by mouth daily for atrial fibrillation. They also understand the possibility of sustaining a TIA and CVAs higher when not on any anticoagulation such as atelectasis/Xarelto Coumadin. They are Accepting the risks and requested to stop the blood thinner. CBC in a.m. Stool for occult blood DVT for prophylaxis with bilateral SCDs (2) GI bleed Status: Acute Problem Text: . Continue PPIs Stop eliquisrequest Started on aspirin 81 mg by mouth daily Monitor H&H (3) Hip pain, left Status: Acute Problem Text: We will get the CT left hip without contrast to rule out fracture PT/OT evaluation has been called Depends on the PT eval, he might need require subacute area facility placement as per daughter. He is unable to take care of himself Pain management as per orders DVT prophylaxis (4) Spinal stenosis Status: Acute Problem Text: Physical therapy consult has been requested And can follow with orthopedic as an outpatient (5) Atrial fibrillation Status: Chronic Problem Text: DC Eliquis Start aspirin rate is under well control Plan/VTE VTE Prophylaxis Ordered?: Yes VS, I&O, 24H, Fishbone Vital Signs/I&O Vital Signs Date Time Temp Pulse Resp B/P (MAP) Pulse Ox O2 Delivery O2 Flow Rate FiO2 10/18/18 08:00 97.6 55 18 133/74 (93) 94 10/17/18 21:46 Room Air I&O- Last 24 Hours up to 6 AM 10/18/18 06:00 Intake Total 1460 ml Output Total 925 ml Balance 535 ml Laboratory Data 24H LABS Laboratory Tests 2 10/17/18 16:16: Immature Granulocyte % (Auto) 0.3, White Blood Count 6.9, Red Blood Count 2.66L, Hemoglobin 7.0L, Hematocrit 23.5L, Mean Corpuscular Volume 88.3, Mean Corpuscular Hemoglobin 26.3L, Mean Corpuscular Hemoglobin Concent 29.8L, Red Cell Distribution Width 15.6H, Platelet Count 144L, Neutrophils (%) (Auto) 60.3, Lymphocytes (%) (Auto) 26.0, Monocytes (%) (Auto) 9.7H, Eosinophils (%) (Auto) 2.7, Basophils (%) (Auto) 1.0, Neutrophils # (Auto) 4.2, Lymphocytes # (Auto) 1.8, Monocytes # (Auto) 0.7, Eosinophils # (Auto) 0.2, Basophils # (Auto) 0.1, Reticulocyte # (auto) 108.8H, Nucleated Red Blood Cells % (auto) 0.0, Percent Reticulocyte Count 4.1H, Reticulocyte Hemoglobin Equivalent 25.4, Anion Gap 7L, Glomerular Filtration Rate 42.3, Calcium Level 8.8, Iron Level 30L, Total Iron Binding Capacity 579H, Transferrin % Saturation 5.2L, Ferritin 24L, Aspartate Amino Transf (AST/SGOT) 45H, Alanine Aminotransferase (ALT/SGPT) 23, Alkaline Ph osphatase 119H, Total Bilirubin 0.7, Direct Bilirubin 0.4H, Total Creatine Kinase 213, Creatine Kinase MB 2.6, Creatine Kinase MB Relative Index 1.22, Troponin I 0.02, Total Protein 6.5, Albumin 3.2, Albumin/Globulin Ratio 0.97L, Lipase 195, Vitamin B12 Level 512, Folate 6.0 10/17/18 17:04: Prothrombin Time 18.8H, Prothromb Time International Ratio 1.60 10/17/18 20:08: 10/18/18 06:55: Nucleated Red Blood Cells % (auto) 0.0, Anion Gap 9, Glomerular Filtration Rate 57.3, Calcium Level 8.4L, Prothrombin Time 16.9H, Prothromb Time International Ratio 1.40, Blood Urea Nitrogen 21H, Creatinine 1.30, Sodium Level 146H, Potassium Level 3.5, Chloride Level 108H, Carbon Dioxide Level 29, Magnesium Level 2.3 CBC/BMP Laboratory Tests 10/17/18 16:16 Red Blood Count 2.66 L, Mean Corpuscular Volume 88.3, Mean Corpuscular Hemoglobin 26.3 L, Mean Corpuscular Hemoglobin Concent 29.8 L, Red Cell Distribution Width 15.6 H, Neutrophils (%) (Auto) 60.3, Lymphocytes (%) (Auto) 26.0, Monocytes (%) (Auto) 9.7 H, Eosinophils (%) (Auto) 2.7, Basophils (%) (Auto) 1.0, Neutrophils # (Auto) 4.2, Lymphocytes # (Auto) 1.8, Monocytes # (Auto) 0.7, Eosinophils # (Auto) 0.2, Basophils # (Auto) 0.1 10/17/18 20:08 10/18/18 01:54 10/18/18 06:55 Red Blood Count 3.26 L, Mean Corpuscular Volume 91.4, Mean Corpuscular Hemoglobin 27.6, Mean Corpuscular Hemoglobin Concent 30.2 L, Red Cell Distribution Width 15.3 H, Calcium Level 8.4 L MINOR DUBOSE MD Oct 18, 2018 11:42
[2018-10-18 12:00] VITALS: BP 125/68
[2018-10-18] MEDS: ASPIRIN 81 MG ENTERIC TAB PO SCH (15:10)
[2018-10-18 16:00] VITALS: BP 112/67
[2018-10-18] MEDS: TORSEMIDE 20 MG TAB PO SCH (17:23)
[2018-10-18] MEDS ORDERED: PREVNAR 13 VACCINE SYRINGE (CPT CODE:90670) IM ONE (18:00)
--- NOTE | 2018-10-18 18:02 | ECGEPIP ---
[facility] - ED Test Date: 2018-10-17 Pat Name: GUNNER JUÁREZ Department: Room: - Gender: Male [employer]vester: TC : 1945 Requested By: AVERY DAVIS Order Number: [id number] Reading MD: Maria Eugenia Hoffman Measurements Intervals [place] Rate: 81 P: -85 MT: 206 QRS: 48 QRSD: 88 T: 25 QT: 366 QTc: 427 Interpretive Statements SINUS RHYTHM WITH OCCASIONAL SUPRAVENTRICULAR PREMATURE COMPLEXES NONSPECIFIC ST & T-WAVE ABNORMALITY Electronically Signed on 10-18-2018 18:02:13 EDT by Maria Eugenia Hoffman
--- NOTE | 2018-10-18 19:58 | CR ---
DATE OF CONSULTATION: 10/18/2018 REASON FOR CONSULTATION: The patient is a 73-year-old male who presented to his [facility] [place] today with complaints of left hip pain. He has been generally weak and having multiple falls for the past few months. In the Nephrology office, his hemoglobin was reported be a seven so he was transferred here for further evaluation. He is not currently receiving any dialysis. He is being treated for chronic kidney disease. He denies any visible blood. No coughing or throwing up any blood. No visible blood in his stool or black stools. No problems with heartburn, acid reflux, or abdominal pain. He does have some bruising in his arms and right abdomen but nothing on the left hip from his recent fall that he is aware of. He has had hemoglobin drawn about a year ago. He was treated for acute blood loss anemia then as well as with an esophagogastroduodenoscopy (EGD) and colonoscopy just showing some mild gastritis and some nonbleeding hemorrhoids. Since then, he has not had any other complaints or blood drawn that he is aware of. Other than the weakness, he has no other symptoms currently and again no visible blood anywhere. He denies fevers or chills. No problems with urination. No abdominal pains. Last colonoscopy and EGD were last year, nothing since then. With his fall a couple of weeks ago, he has started to take some [id number] ibuprofen. He has been taking it a few times a day and is not positive that he has been taking them with food. No other symptoms or risk factors for gastrointestinal (GI) bleeding at this time. Denies tobacco, alcohol and drug abuse. Does drink a little caffeine daily, 2-3 16-ounce Pepsi a day. No other symptoms. PAST MEDICAL HISTORY: 1. Atrial fibrillation. 2. Coronary artery disease. 3. Diastolic congestive heart failure (CHF). 4. Cerebrovascular accident (CVA). 5. Sleep apnea. 6. Hypertension. 7. gastroesophageal reflux disease (GERD). 8. Restless leg syndrome. 9. History of blood loss anemia. 10. Chronic kidney disease. PAST SURGICAL HISTORY: Carotid endarterectomy and triple bypass. SOCIAL HISTORY: Denies drug, alcohol, tobacco abuse. FAMILY HISTORY: Noncontributory. ALLERGIES: None. HOME MEDICATIONS: Please see medical record. REVIEW OF SYSTEMS: Pertinent positives and negatives as stated in the history of present illness (HPI). PHYSICAL EXAMINATION: GENERAL: Alert and oriented times three, in no acute stress. VITAL SIGNS: Temperature 97.6, pulse 55, respirations 18, blood pressure 133/74, pulse oximetry 94% on room air. HEENT: Pupils equally round and react to light and accommodation. HEART: S1, S2, irregularly irregular rate and rhythm. LUNGS: Clear to auscultation bilaterally. ABDOMEN: Soft, obese, nontender, nondistended. There is a slight bruise in the right lower quadrant. No signs of any other bruising. EXTREMITIES: No clubbing, cyanosis or edema. There is some bruising over the right and left forearms. No other significant bruising or injuries. LABORATORY DATA: Hemoglobin was 7 outpatient, 6.8 in the emergency room, and up to 8.8 after two units of blood and then up to 9 this morning. White count was 5.9, platelets 117, creatinine was 1.3. IMAGING STUDIES: Pelvis CT was negative for any acute findings. ASSESSMENT AND PLAN: The patient is a 73-year-old male with a history of gastrointestinal (GI) bleeding from an unknown source who presents again with weakness and likely blood loss anemia. He is on Eliquis. In the past, he was found to have just some mild gastritis and some hemorrhoids. He denies any visible blood this time. He has been on ibuprofen for the past few days due to left hip pain and is not sure if he has been taken them with any food or drink. This is the most likely source at this time for his bleeding. He likely has recurrent mild gastritis from this. My recommendation is to start him on a proton pump inhibitor (PPI) and some Carafate. We will monitor his hemoglobin for 24 hours. If he remains stable, we can discharge him with those for a couple of weeks and recommend that he avoid ibuprofen or at least take it with food. As far as the hip pain goes, I would recommend an orthopedic consultation for further management and possibly some pain control. If his hemoglobin does start to drop again rapidly or we see visible signs of bleeding then we will consider endoscopy at that time.
[2018-10-18 20:00] VITALS: BP 133/59
[2018-10-18] MEDS: LIDOCAINE 5% (LIDODERM) PATCH TD SCH (20:13)
[2018-10-18] MEDS: rOPINIRole 1MG TAB PO SCH (20:13)
[2018-10-18 23:59] VITALS: BP 121/57
[2018-10-19 04:00] VITALS: BP 136/74
[2018-10-19 05:48] LABS: INR 1.11
[2018-10-19] MEDS: SUCRALFATE 1 GM TAB PO SCH ×2 (07:39→11:13)
[2018-10-19 07:59] LABS: BILIRUBIN,TOTAL 0.7 MG/DL (0.2-1.0); CALCIUM LEVEL 8.8 MG/DL (8.8-10.2); CREATININE FOR GFR 1.28 MG/DL (0.70-1.30); GLOMERULAR FILTRATION RATE 58.3 (>42); POTASSIUM SERUM 3.7 MEQ/L (3.5-5.1); TOTAL PROTEIN 6.4 GM/DL (6.4-8.2)
[2018-10-19 08:00] VITALS: BP 124/50
[2018-10-19 08:08] LABS: HEMATOCRIT 29.9 % (42.0-52.0); HEMOGLOBIN 8.9 g/dl (13.5-17.5); MEAN CORPUSCULAR HEMOGLOBIN 26.8 pg (27.0-33.0); MEAN CORPUSCULAR HGB CONC 29.8 g/dl (32.0-36.5); MEAN CORPUSCULAR VOLUME 90.1 fl (80.0-96.0); PLATELET COUNT, AUTOMATED 134 10^3/uL (150-450); RED BLOOD COUNT 3.32 10^6/uL (4.30-6.10); WHITE BLOOD COUNT 7.9 10^3/uL (4.0-10.0)
[2018-10-19] MEDS: ASPIRIN 81 MG ENTERIC TAB PO SCH (08:17)
[2018-10-19] MEDS: OMEPRAZOLE 20 MG CAP PO SCH (08:17)
[2018-10-19] MEDS: ROSUVASTATIN 10 MG TAB (CRESTOR) PO SCH (08:17)
[2018-10-19] MEDS: PREGABALIN 100 MG CAP (LYRICA) PO SCH (08:17)
[2018-10-19] MEDS: SPIRONOLACTONE 12.5MG PER 1/2 TABLET PO SCH (08:17)
[2018-10-19] MEDS: SERTRALINE 100 MG TAB PO SCH (08:18)
[2018-10-19] MEDS: TORSEMIDE 100 MG TAB PO SCH (08:18)
[2018-10-19] MEDS: POTASSIUM CHLORIDE 10 MEQ SR TABLET PO SCH (08:18)
[2018-10-19] MEDS: allopurinoL 300 MG TAB PO SCH (08:18)
[2018-10-19] MEDS ORDERED: PREVNAR 13 VACCINE SYRINGE (CPT CODE:90670) IM ONE (09:00)
[2018-10-19] MEDS: **NOTE PATIENT COMMENT** MISC XX SCH (09:00)
[2018-10-19] MEDS ORDERED: ASPI81TAEC PO (10:55)
[2018-10-19 11:22] LABS: HEMOGLOBIN A1c 4.8 %
[2018-10-19 12:00] VITALS: BP 144/68
--- NOTE | 2018-10-19 12:11 | DS.PDOC ---
Discharge Summary General Date of Admission Oct 17, 2018 at 19:30 Date of Discharge 10/19/18 Discharge Summary PROCEDURES PERFORMED DURING STAY: None. ADMITTING DIAGNOSES: 1. [Anemia, GI bleed,. DISCHARGE DIAGNOSES: 1. Anemia, GI bleed secondary to meds , vertebral fracture of L3, spinal stenosis L2-L3, morbid obesity, obstructive sleep apnea COMPLICATIONS/CHIEF COMPLAINT: Anemia. HISTORY OF PRESENT ILLNESS: This is a 73-year-old male who was sent by PCP for evaluation of acute anemia. In the ED his hemoglobin was 7. He denies having blood when he brushes his teeth, denies having blood in the urine, and is having blood mixed with his stools, and is having chest pain, denies having cough, denies feeling dizzy, denies having headaches, denies having abdominal pain and denies having fevers or chills. He reports having a fall about 2 weeks ago and developed left lower back pain and dyspnea thereafter. The dyspnea has not resolved. CT of the abdomen done in the ED was negative for any acute process. Of note , patient has a history of acute blood loss anemia secondary to GI bleed and was transferred to [facility] in October 2017. The EGD showed mild duodenal bulb inflammation and gastritis and no active bleeding while colonoscopy showed a few colonic polyps and hemorrhoids . HOSPITAL COURSE: [Patient was admitted with the diagnosis of possible GI bleed secondary to oral anticoagulants. This is a recurrent GI bleed, hence extensive discussion was done with patient and his daughter and sheela is was DC'd after considering all the risks and neb, benefits. Patient is aware about the risk of clot formation and stroke in the absence of eliquis. 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 Patient was also advised to see a pulmonary for possible obstructive sleep apnea and needs a sleep study is done as an outpatient. He and his daughter understood very well and will bring this issue with her primary care physician. Patient also has a compression fracture of L3 with spinal stenosis L2-L3, most likely secondary to morbid obesity, extensive counseling regarding weight loss was done and he understands very well, but refuses to follow any recommendation, and patient also refused to be transferred to subacute area facility for physical therapy. Patient will be discharged home on all current medications DISCHARGE MEDICATIONS: Please see below. ALLERGIES: Please see below. PHYSICAL EXAMINATION ON DISCHARGE: VITAL SIGNS: Please see below. GENERAL: Within normal limits HEENT: PERRLA. Extraocular muscles intact NECK: Supple CARDIOVASCULAR EXAMINATION: S1, S2, regular RESPIRATORY EXAMINATION: Clear to A&P ABDOMINAL EXAMINATION: , Soft, nontender, positive present. No organomegaly EXTREMITIES: Distal pulses equal bilaterally SKIN: Normal NEUROLOGICAL EXAMINATION: . No focal motor or sensory deficit PSYCHIATRIC EXAMINATION: Normal LABORATORY DATA: Please see below. IMAGING: Renal sonogram report:IMPRESSION: No acute findings are identified. Please see above report for incidental findings. Pelvic CT report:Kidneys and ureters: Nonobstructive calculus lower pole right and left kidneys. Stomach and bowel: Visualized small bowel and colon are unremarkable. Appendix: No evidence of appendicitis. Bladder: Normal. No mass. Reproductive: Normal as visualized. Intraperitoneal space: Unremarkable. No free air. No significant fluid collection. Lymph nodes: Unremarkable. No enlarged lymph nodes. Bones/joints: Status post total hip replacement on the left. Degenerative spondylosis lower lumbar spine. Degenerative arthropathy right hip. Soft tissues: Unremarkable. Other findings: Osteoporosis. Lumbar spine CT report:IMPRESSION: 1. Contour deformity along the superior endplate of L3 to the left of midline with linear lucencies demonstrated within the bone, findings which may indicate a nondisplaced compression fracture. 2. Moderate central spinal stenosis at L2-L3, mild to moderate central spinal stenosis L3-L4, severe central spinal stenosis L4-L5 secondary to bulging annuli in combination with bilateral facet joint arthropathy and thickened ligamentum flavum. 3. Bulging annuli L5-S1 without central spinal stenosis. Bilateral facet joint arthropathy. PROGNOSIS: Fair ACTIVITY: As tolerated. DIET: As tolerated DISCHARGE PLAN: With PCP in one week DISPOSITION: . Chin declined subacute area facility will be discharged home DISCHARGE INSTRUCTIONS: 1. As per discharge instructions. ITEMS TO FOLLOWUP ON ON OUTPATIENT: 1. Lobe PCP in one week. DISCHARGE CONDITION: Stable. TIME SPENT ON DISCHARGE: 45 minutes. Vital Signs/I&Os Vital Signs Date Time Temp Pulse Resp B/P (MAP) Pulse Ox O2 Delivery O2 Flow Rate FiO2 10/19/18 08:00 96.3 62 20 124/50 (74) 98 10/17/18 21:46 Room Air I&O- Last 24 Hours up to 6 AM 10/19/18 06:00 Intake Total 1320 ml Output Total 1100 ml Balance 220 ml Laboratory Data Labs 24H Laboratory Tests 2 10/19/18 05:07: Nucleated Red Blood Cells % (auto) 0.0, Prothrombin Time 14.0, Prothromb Time International Ratio 1.11, Anion Gap 4L, Glomerular Filtration Rate 58.3, Blood Urea Nitrogen 19H, Creatinine 1.28, Sodium Level 145, Potassium Level 3.7, Chloride Level 108H, Carbon Dioxide Level 33H, Calcium Level 8.8, Aspartate Amino Transf (AST/SGOT) 37, Alanine Aminotransferase (ALT/SGPT) 21, Alkaline Phosphatase 115, Total Bilirubin 0.7, Total Protein 6.4, Albumin 3.0L, Albumin/G lobulin Ratio 0.88L CBC/BMP Laboratory Tests 10/19/18 05:07 Red Blood Count 3.32 L, Mean Corpuscular Volume 90.1, Mean Corpuscular Hemoglobin 26.8 L, Mean Corpuscular Hemoglobin Concent 29.8 L, Red Cell Distribution Width 15.9 H, Calcium Level 8.8, Aspartate Amino Transf (AST/SGOT) 37, Alanine Aminotransferase (ALT/SGPT) 21, Alkaline Phosphatase 115, Total Bilirubin 0.7, Total Protein 6.4, Albumin 3.0 L Discharge Medications Scheduled Allopurinol (Zyloprim) 300 Mg Tablet, 300 MG PO DAILY, (Reported) Aspirin (Aspirin EC) 81 Mg Tablet.dr, 81 MG PO QAM Ergocalciferol (Vitamin D2) (Drisdol) 50,000 Unit Capsule, 50,000 UNIT PO 1XWK, (Reported) SUNDAYS Fenofibrate (Fenofibrate) 160 Mg Tab, 160 MG PO DAILY, (Reported) Ferrous Sulfate (Ferrous Sulfate) 325 Mg Tablet.dr, 325 MG PO DAILY, (Reported) Pantoprazole Sodium (Pantoprazole Sodium) 40 Mg Tablet.dr, 40 MG PO DAILY, (Reported) Potassium Chloride (Potassium Chloride) 10 Meq Tab, 10 MEQ PO TID, (Reported) Pregabalin (Lyrica) 75 Mg Cap, 200 MG PO TID, (Reported) Ropinirole HCl (Ropinirole HCl) 5 Mg Tablet, 5 MG PO QHS, (Reported) Rosuvastatin Calcium (Rosuvastatin Calcium) 20 Mg Tablet, 20 MG PO DAILY, (Reported) Sertraline HCl (Sertraline HCl) 100 Mg Tab, 100 MG PO DAILY, (Reported) Spironolactone (Spironolactone) 25 Mg Tab, 12.5 MG PO DAILY, (Reported) Torsemide (Torsemide) 100 Mg Tab, 100 MG PO DAILY, (Reported) Torsemide (Torsemide) 20 Mg Tablet, 40 MG PO QPM, (Reported) Scheduled PRN Nitroglycerin (Nitroglycerin) 0.4 Mg Sub, 0.4 MG SL Q5MP PRN for CHEST PAIN, (Reported) Allergies Coded Allergies: No Known Allergies (Verified , 03/02/05) MINOR DUBOSE MD Oct 19, 2018 12:11
== END 2018-10-19 14:00 | disposition home or self-care (01) | DRG 812 ==
LOC: M ED 15:31 → M ED INP 19:30 → M PCU 22:02
PROVIDERS: ADMIT Internal Medicine; ATTEND Internal Medicine
PROC: 30233N1 Transfusion of Nonautologous Red Blood Cells into Peripheral Vein, Percutaneous Approach (ICD-10-PCS; principal; 2018-10-17)
DX: D62 Acute posthemorrhagic anemia (principal); I50.32 Chronic diastolic (congestive) heart failure; Z68.41 Body mass index [BMI] 40.0-44.9, adult; M48.56XA Collapsed vertebra, not elsewhere classified, lumbar region, initial encounter for fracture; I13.0 Hypertensive heart and chronic kidney disease with heart failure and stage 1 through stage 4 chronic kidney disease, or unspecified chronic kidney disease; E66.01 Morbid (severe) obesity due to excess calories; G47.33 Obstructive sleep apnea (adult) (pediatric); Z79.82 Long term (current) use of aspirin; Z79.899 Other long term (current) drug therapy; I48.91 Unspecified atrial fibrillation; Z79.01 Long term (current) use of anticoagulants; I25.10 Atherosclerotic heart disease of native coronary artery without angina pectoris; Z86.73 Personal history of transient ischemic attack (TIA), and cerebral infarction without residual deficits; G25.81 Restless legs syndrome; R29.6 Repeated falls; N18.9 Chronic kidney disease, unspecified; K64.8 Other hemorrhoids

== ENCOUNTER → 2018-12-28 | Outpatient (CLI) | payer MEDICARE, BC ==
[~2018-12-28] MED LIST changes: +ASPI81TAEC PO; +DRIS50003 PO; +FERR325T3 PO; +PANT40TA3 PO; -PREVNAR 13 VACCINE SYRINGE (CPT CODE:90670) IM ONE; +ROPI5TAB3 PO; +ROSU20TA5 PO; +ROSU40TA4 PO; +TORS20TA2 PO; +VITA1CAP25 PO; +ZYLO300T6 PO
--- NOTE | 2018-12-28 16:34 | REP ---
HISTORY: Back pain. History of L3 compression fracture. Prior bone scan: None. After the intravenous administration of 21.7 mCi of technetium 99m MDP, a total body bone scan was obtained. Increased radionuclide accumulation is seen in the shoulders and sternoclavicular joints. There is increased radionuclide accumulation seen, mildly int he hips and sacroiliac joints with mild patchy increased radionuclide accumulation seen in the feet. Focal areas of increased radionuclide accumulation are seen along the anterior ends of multiple ribs. This is nonlinear. There is diffuse type increased radionuclide accumulation seen in the lumbar spine at the level of L3. A photopenic defect is seen in the left hip consistent with a previous left hip prosthesis. IMPRESSION: 1. Increased radionuclide accumulation seen involving L3 consistent with the patient's recent compression fracture. 2. Degenerative type uptake pattern seen in the axial skeleton as described above. 3. Focal areas of increased radionuclide accumulation seen in the ribs, likely from minimal trauma. 4. Photopenia from previous left hip prosthesis. 5. There is no evidence of metastatic disease. Electronically Signed by Ankit Marrero DO 12/28/2018 04:59 P
== END ==
LOC: M RAD 10:14
PROVIDERS: ATTEND Physical Medicine & Rehabilitation
DX: M48.061 Spinal stenosis, lumbar region without neurogenic claudication (principal)
CPT/HCPCS: 78306; A9503

== ENCOUNTER 2019-01-22 16:32 | Observation (INO) | payer MEDICARE, BC ==
[~2019-01-22] VITALS: Ht 170.2 cm; Wt 118.2 kg
[2019-01-22] MEDS ORDERED: NS 500 ML IV ONE (17:15)
[2019-01-22] MEDS ORDERED: ACETAMINOPHEN TAB 650MG DOSE (2X325MG) PO ONE (17:15)
[2019-01-22 17:58] LABS: BASO # 0.1 10^3/uL (0.0-0.2); BASO % 0.9 % (0.0-1.0); EOS # 0.2 10^3/uL (0.0-0.5); EOS % 2.7 % (0.0-3.0); HEMATOCRIT 34.7 % (42.0-52.0); HEMOGLOBIN 10.1 g/dl (13.5-17.5); LYMPH % 29.7 % (24.0-44.0); MEAN CORPUSCULAR HEMOGLOBIN 24.3 pg (27.0-33.0); MEAN CORPUSCULAR HGB CONC 29.1 g/dl (32.0-36.5); MEAN CORPUSCULAR VOLUME 83.4 fl (80.0-96.0); MONO # 0.7 10^3/uL (0.0-0.8); MONO % 10.3 % (0.0-5.0); NEUTROPHILS # 3.8 10^3/uL (1.5-8.5); NEUTROPHILS % 56.1 % (36.0-66.0); PLATELET COUNT, AUTOMATED 156 10^3/uL (150-450); RED BLOOD COUNT 4.16 10^6/uL (4.30-6.10); WHITE BLOOD COUNT 6.7 10^3/uL (4.0-10.0)
[2019-01-22 18:23] LABS: ALBUMIN 3.3 GM/DL (3.2-5.2); BILIRUBIN,DIRECT 0.5 MG/DL (0.0-0.2); BILIRUBIN,TOTAL 1.1 MG/DL (0.2-1.0); TOTAL PROTEIN 7.2 GM/DL (6.4-8.2)
[2019-01-22] MEDS ORDERED: MORPHINE 4 MG/ML 1ML VIAL/SYRINGE (J2270) IV ONE (18:30)
[2019-01-22] MEDS ORDERED: ONDANSETRON 4MG/2ML VIAL (J2405) IV ONE (18:30)
--- NOTE | 2019-01-22 19:06 | REP ---
REASON: Single view of the right hip. Two views of the right hip show no evidence of an acute fracture, dislocation or subluxation. There is mild to moderate hip joint space narrowing. There is no buttressing. AP and lateral views of the femur were obtained at the same time the hip was performed. There is no evidence of an acute fracture or destructive osseous lesion. Electronically Signed by Ankit Marrero DO 01/22/2019 07:29 P
[2019-01-22] MEDS ORDERED: ISOVUE-370 76% 100ML VIAL (Q9967) As Ordered ONE (19:10)
--- NOTE | 2019-01-22 19:18 | REP ---
REASON: Pain after trauma. The bones are somewhat demineralized. The accompanying frontal view of the chest is unchanged from 10/15/2017. There was no acute disease. There is cardiomegaly and there has been previous median sternotomy with multiple wire suture fractures status quo. Not all of the ribs were imaged on all views. This limited exam shows no gross rib fracture. Chronic changes are seen involving the imaged spine. IMPRESSION:Negative but limited exam. Electronically Signed by Ankit Marrero DO 01/22/2019 07:30 P
[2019-01-22] MEDS ORDERED: rOPINIRole 2MG TAB PO STA (19:54)
[2019-01-22] MEDS ORDERED: PREGABALIN 100 MG CAP (LYRICA) PO ONE (20:00)
--- NOTE | 2019-01-22 20:35 | REPVR ---
PROCEDURE INFORMATION: Exam: CT Abdomen And Pelvis With Contrast Exam date and time: 01/22/2019 7:19 PM Clinical history: 73 years old, male; Abdominal pain; Localized; Left lower quadrant (llq); Additional info: Llq pain, nausea TECHNIQUE: Imaging protocol: Computed tomography of the abdomen and pelvis with intravenous contrast. Radiation optimization: All CT scans at this facility use at least one of these dose optimization techniques: automated exposure control; mA and/or kV adjustment per patient size (includes targeted exams where dose is matched to clinical indication); or iterative reconstruction. Contrast material: ISOVUE 370; Contrast volume: 100 ml; Contrast route: IV; COMPARISON: CT Pelvis without contrast 10/17/2018 6:27 PM FINDINGS: Lungs: Clear lung bases. Heart: The heart is normal in size. Liver: Normal liver. Gallbladder and bile ducts: The 5 mm calcified stone dependent portion the gallbladder. Pancreas: Normal pancreas. Spleen: Normal spleen. Adrenals: Normal adrenal glands. Kidneys and ureters: There is enhancement of the kidneys. Small cyst upper pole left kidney. There is a small calcified stone lower pole left kidney. Stomach and bowel: Unremarkable. No obstruction. No mucosal thickening. Appendix: Normal appendix. Intraperitoneal space: There is no evidence of pneumoperitoneum. No evidence of free fluid in the abdomen or the pelvis. Vasculature: There is opacification of the aorta which appears intact. Lymph nodes: Unremarkable. No enlarged lymph nodes. Bladder: Normal urinary bladder. Reproductive: Normal size prostate. Bones/joints: There is a grade 1 spondylolisthesis of L4 on L5 with a large posterior disc protrusion and all causing severe central spinal canal stenosis and severe bilateral L4 neural foramina narrowing. There is severe bilateral L3 neural foramina narrowing. There is a compression of the superior endplate of L3. There is also prominent disc protrusion at L2-L3 and all causing severe central spinal canal stenosis. There is a total left hip prosthesis. IMPRESSION: 1. Small calcified gallstone. 2. No evidence of bowel obstruction. 3. Several areas of severe stenosis lumbar spine the neural foramina. Electronically signed by: David Quan On 01/22/2019 20:31:45 PM
--- NOTE | 2019-01-22 20:50 | REPVR ---
PROCEDURE INFORMATION: Exam: CT Lumbar Spine Without Contrast Exam date and time: 01/22/2019 7:19 PM Clinical history: 73 years old, male; Low back pain; Additional info: Low back pain, weakness legs TECHNIQUE: Imaging protocol: Computed tomography images of the lumbar spine without contrast. Radiation optimization: All CT scans at this facility use at least one of these dose optimization techniques: automated exposure control; mA and/or kV adjustment per patient size (includes targeted exams where dose is matched to clinical indication); or iterative reconstruction. COMPARISON: CT Spine, lumbar w/o contrast 10/17/2018 5:49 PM FINDINGS: L5-S1: There is a moderate left paracentral disc protrusion causing impression on the left S1 nerve root. L4-L5: Grade 1 spondylolisthesis of L4 on L5. There is a large posterior disc protrusion and this all produces severe central spinal canal stenosis and severe bilateral L4 neural foramina narrowing greater on the right. There is a large disc extrusion into the right L4 neural foramen. This is similar to the examination of 10/17/2018. L3-L4: There is mild to moderate posterior disc protrusion causing mild to moderate impression on the anterior aspect of the thecal sac. L2-L3: There is a compression of the superior endplate of L3 and this may be acute or subacute. There is a large posterior disc protrusion this all produces very severe central spinal canal stenosis. The compression of the superior endplate has developed since 10/17/2018. The amount of central spinal canal stenosis has increased. IMPRESSION: 1. The L4-L5 level demonstrates severe central spinal canal stenosis and severe bilateral L4 neural foramina narrowing greater on the right. 2. The L2-L3 level demonstrates compression of the superior endplate which has developed since October. Very severe central spinal canal stenosis which is increased since October. Electronically signed by: David Quan On 01/22/2019 20:50:14 PM
[2019-01-22] MEDS ORDERED: rOPINIRole 1MG TAB PO SCH (21:00)
--- NOTE | 2019-01-22 21:02 | REPVR ---
PROCEDURE INFORMATION: Exam: US Abdomen Limited, Right Upper Quadrant Exam date and time: 01/22/2019 8:29 PM Clinical history: 73 years old, male; Pain and abnormal findings; Abnormal lab test; Elevated liver enzymes; Abdominal pain; Acute; Additional info: Elevated enzymes TECHNIQUE: Imaging protocol: Real-time ultrasound of the abdomen with image documentation. Examination was focused on the right upper quadrant. COMPARISON: RENAL US 10/18/2018 5:38 AM FINDINGS: Liver: Is lobulation of the margins of the liver. Gallbladder: There is an echogenic stone in the dependent portion of the gallbladder. There is mild hydrops of the gallbladder measuring 5.3 CM in transverse dimension. Common bile duct: The common bile duct is normal in size measuring 6 mm. Pancreas: The pancreas is obscured by bowel gas. Right kidney: There is no evidence of hydronephrosis of the right kidney. IMPRESSION: There is a small gallstone in the gallbladder. Electronically signed by: David Quan On 01/22/2019 21:02:08 PM
[2019-01-22] MEDS ORDERED: LIDOCAINE 5% (LIDODERM) PATCH TD ONE (21:45)
[2019-01-22] MEDS ORDERED: ASPI-161 PO (22:01)
[2019-01-22] MEDS ORDERED: POTA10TA17 PO (22:01)
[2019-01-22] MEDS ORDERED: TORS10TA3 PO (22:01)
[2019-01-22] MEDS ORDERED: PREG200C PO (22:01)
[2019-01-22] MEDS ORDERED: NITROGLYCERIN 0.4 MG SUBL TABLET SL PRN (22:45)
--- NOTE | 2019-01-22 23:02 | HPEPDOC ---
[facility] Medical History & Physical Date of Admission Jan 22, 2019 Date of Service: Jan 22, 2019 Primary Care Physician: Brooklyn Keyes Attending Physician: JETHRO AQUINO MD History and Physical TIME OF SERVICE: 10:15 PM CHIEF COMPLAINT: Hip pain HISTORY OF PRESENT ILLNESS: This is a 73-year-old male presents with complaints of worsening of his chronic right hip pain. About 2-3 weeks ago he had a fall which she attributes to difficulties walking because of the hip pain. He didn't hit his head. 3-4 days ago the pain became more severe and he rated the severity as 10/10. He has been taking 1 [place] daily, which she does not feel is controlling the pain adequately. Today he came to also because he developed nausea without vomiting; he denies being constipated. Per discussion with Cholo Edmond PA-C the patient's rectal tone was intact; his pain improved after receiving morphine, but he refused to go home because he was still in pain. REVIEW OF SYSTEMS: 12 point review of systems negative except as listed in HPI PAST MEDICAL/ SURGICAL HISTORY: CVA 2 L2/L3 spinal stenosis Atrial fibrillation Osteoporosis/history of L3 vertebral fracture Unsteady gait, uses a walker. Chronic CAD, status post triple bypass / Dyslipidemia Chronic diastolic congestive heart failure Iron deficiency anemia BPH Gout LOGAN./Morbid obesity Prediabetes CKD III Glaucoma History status post left hip replacement. Status post right ankle surgery. SOCIAL HISTORY: Former smoker Quit drinking. Denies IV drug use FAMILY HISTORY: CVA ALLERGIES: Please see below. HOME MEDICATIONS: Please see below. PHYSICAL EXAMINATION: VITAL SIGNS: Please see below. GENERAL APPEARANCE: Well-nourished, well-developed, not in apparent distress HEENT:, Normocephalic atraumatic, mucous membranes moist and pink. Neck is short CARDIOVASCULAR: Rate and rhythm. No murmurs, rubs or gallops LUNGS:. Clear to auscultation bilaterally on room air ABDOMEN:. Bowel sounds are hypoactive. Abdomen is soft and nontender on palpation MUSCULOSKELETAL:. Motion is intact in all 4 extremities. . Negative MARIA ELENA test bilaterally INTEGUMENT: Spider angiomata on his cheeks area. He's not pale and does not appear jaundice NEUROLOGICAL:. Cranial nerves II-12 are grossly intact. Speech is not dysarthric. Strength is 5 out of 5 in all extremities PSYCHIATRIC: Alert and oriented to person, place and time, able to understand and follow all commands LABORATORY DATA: See below. IMAGING: X-ray of the ribs " IMPRESSION:Negative but limited exam." X-ray of the right hip " Two views of the right hip show no evidence of an acute fracture, dislocation or subluxation. There is mild to moderate hip joint space narrowing. There is no buttressing. AP and lateral views of the femur were obtained at the same time the hip was performed. There is no evidence of an acute fracture or destructive osseous lesion." CT of the abdomen and pelvis " IMPRESSION: 1. Small calcified gallstone. 2. No evidence of bowel obstruction. 3. Several areas of severe stenosis lumbar spine the neural foramina. " CT of the lumbar spine "IMPRESSION: 1. The L4-L5 level demonstrates severe central spinal canal stenosis and severe bilateral L4 neural foramina narrowing greater on the right. 2. The L2-L3 level demonstrates compression of the superior endplate which has developed since October. Very severe central spinal canal stenosis which is increased since October. " US Gallbladder " IMPRESSION: There is a small gallstone in the gallbladder. " MICROBIOLOGY: Please see below. ASSESSMENT: Ms. Franz is a 73-year-old male with a PMH of severe L2-L3 spinal stenosis, osteoporosis /L3 vertebral fracture, chronic CAD requring CABG, chronic diastolic CHF, CVAs, and CKD 3 who will be admitted for management and evaluation of right hip pain. PLAN: 1. Right hip pain. Possibly due to osteoarthritis vs microfracture vs nerve impingement Per discussion with POLO Brooks recommended MRI of the hip. Plan: Admit to medical floor/ fall precautions / Tramadol 200mg QHS + Tylenol 1350mg every 8 hours scheduled, + lidocaine patches / since we don't have voltaren on the formulary I will write a script for this medication which he can obtain on an out patient basis / Ortho consult / request records from 's office regarding the type of cardiac and carotid stent the patient has prior to obtaining MRI / PT eval 2. Severe L2/L3 spinal stenosis Plan: pain meds / f/u with Ortho 3. Osteoporosis / L3 Vertebral Compression Fx Plan: f/u with PCP for work up to r/o secondary causes of Osteoporosis prior to selecting medications to treat osteoporosis CVA 2 4. Atrial fibrillation Anticogulation was discontinued during his admission in October because of GI bleed. Plan: No acute intervention 5.Iron deficiency anemia Secondary to GI bleed Plan: Continue iron. 6. Chronic CAD, status post triple bypass / Dyslipidemia Plan continue home meds 7. Prediabetes. Plan: f/u BMP 8. Chronic Diastolic CHF / Chronic hypertension Reports from echos done in Oct 2017 and Feb 2005 were reviewed Plan: f/u Is/OS, daily weights / c/w home meds 9. History of CVA Plan: c/w home meds 10. BPH Plan: c/w home meds 11. GERD Plan: c/w home meds 12. Restless leg syndrome. Plan: c/w home meds 13. Morbid obesity BMI 40.8 Has LOGAN/OHS but is not using w CPAP complicates care Plan: bariatric mattress / can f/u w PCP for senior net architect consult & referral for Bariatric surgery / recommend cardiovascular exercise for 40 min 4-5 days a week DVT Px with Lovenox DISPO: likely home after less than 2 midnight's stay Vital Signs Vital Signs Date Time Temp Pulse Resp B/P (MAP) Pulse Ox O2 Delivery O2 Flow Rate FiO2 01/22/19 18:52 17 01/22/19 17:13 01/22/19 16:33 97.1 74 94 Room Air Laboratory Data Labs 24H Laboratory Tests 2 01/22/19 17:10: Immature Granulocyte % (Auto) 0.3, Neutrophils (%) (Auto) 56.1, Lymphocytes (%) (Auto) 29.7, Monocytes (%) (Auto) 10.3H, Eosinophils (%) (Auto) 2.7, Basophils ( %) (Auto) 0.9, Neutrophils # (Auto) 3.8, Lymphocytes # (Auto) 2.0, Monocytes # (Auto) 0.7, Eosinophils # (Auto) 0.2, Basophils # (Auto) 0.1, Nucleated Red Blood Cells % (auto) 0.0, Lactic Acid Level 1.5, Total Bilirubin 1.1H, Direct Bilirubin 0.5H, Aspartate Amino Transf (AST/SGOT) 51H, Alanine Aminotransferase (ALT/SGPT) 35, Alkaline Phosphatase 100, Total Protein 7.2, Albumin 3.3, Albumin/Globulin Ratio 0.85L, Lipase 178 01/22/19 17:32: Urine Color YELLOW, Urine Appearance CLEAR, Urine pH 7.0, Urine Specific [place] 1.008, Urine Protein NEGATIVE, Urine Glucose (UA) NEGATIVE, Urine Ketones NEGATIVE, Urine Blood NEGATIVE, Urine Nitrite NEGATIVE, Urine Bilirubin NEGATIVE , Urine Urobilinogen 0.2, Urine Leukocyte Esterase NEGATIVE, Urine WBC (Auto) 1, Urine RBC (Auto) 0, Urine Hyaline Casts (Auto) 0, Urine Bacteria (Auto) NEGATIVE, Urine Squamous Epithelial Cells 1, Urine Sperm (Auto) 01/22/19 18:02: POC Glucose (Misc Panel) 113H, POC Sodium (Misc Panel) 140, POC Potassium (Misc Panel) 3.7, POC Chloride (Misc Panel) 99, POC Total CO2 (Misc Panel) 34.0H, POC Blood Urea Nitrogen (Misc Panel 26, POC Ionized Calcium (Misc Panel) 4.8, POC Creatinine (Misc Panel) 1.5H, POC Hematocrit (Misc Panel) 34.0L CBC/BMP Laboratory Tests 01/22/19 17:10 Home Medications Scheduled Allopurinol (Zyloprim) 300 Mg Tablet, 300 MG PO DAILY Aspirin (Aspirin EC) 81 Mg Tablet.dr, 81 MG PO DAILY Ergocalciferol (Vitamin D2) (Drisdol) 50,000 Unit Capsule, 50,000 UNIT PO 1XWK THDAY Fenofibrate (Fenofibrate) 160 Mg Tab, 160 MG PO DAILY Ferrous Sulfate (Ferrous Sulfate) 325 Mg Tablet.dr, 325 MG PO DAILY Pantoprazole Sodium (Pantoprazole Sodium) 40 Mg Tablet.dr, 40 MG PO DAILY Potassium Chloride (Potassium Chloride) 10 Meq Tab, 20 MEQ PO DAILY Potassium Chloride (Potassium Chloride) 10 Meq Tab.er.prt, 10 MEQ PO QHS Pregabalin (Pregabalin) 200 Mg Capsule, 200 MG PO QHS Ropinirole HCl (Ropinirole HCl) 5 Mg Tablet, 5 MG PO QHS Rosuvastatin Calcium (Rosuvastatin Calcium) 20 Mg Tablet, 20 MG PO QHS Sertraline HCl (Sertraline HCl) 100 Mg Tab, 100 MG PO DAILY Spironolactone (Spironolactone) 25 Mg Tab, 12.5 MG PO DAILY Torsemide (Torsemide) 100 Mg Tab, 100 MG PO DAILY Torsemide (Torsemide) 10 Mg Tablet, 40 MG PO QPM DINNERTIME Scheduled PRN Nitroglycerin (Nitroglycerin) 0.4 Mg Sub, 0.4 MG SL NITRO PRN for CHEST PAIN Allergies Coded Allergies: No Known Allergies (Verified , 03/02/05) A-FIB/CHADSVASC A-FIB History Current/History of A-Fib/PAF?: No Current PO Anticoag Therapy: No JETHRO AQUINO MD Jan 22, 2019 23:02
[2019-01-22 23:30] VITALS: BP 139/56
[2019-01-23] MEDS ORDERED: traMADol 50 MG TAB PO ONE (02:00)
[2019-01-23] MEDS ORDERED: KETOROLAC 30 MG/ML VIAL (J1885) IV ONE (02:00)
[2019-01-23 06:00] VITALS: BP 131/64
[2019-01-23] MEDS: ACETAMINOPHEN 650MG ER TAB (TYLENOL ARTHRITIS) PO SCH ×4 (06:14→23:46)
--- NOTE | 2019-01-23 07:25 | IPNPDOC ---
Subjective Date Seen The patient was seen on 01/23/19. Subjective Chief Complaint/HPI Pt is a 73-year-old male with past medical history of CVA 2, L2-L3 spinal stenosis, history of atrial fibrillation on aspirin but not on anti-coagulation, osteoporosis, history of ambulatory dysfunction with walker use, CAD status post CABG, dyslipidemia, at bedtime PEF, gout, morbid obesity with a BMI of 40, CK D stage III, prediabetes, history of left hip replacement, right ankle surgery. Complains of chronic right hip pain which she has been taking [place] daily, and was admitted for observation due to uncontrolled pain. He is currently on tramadol, Tylenol, and ortho has been consulted. Night team spoke with Ortho, Dr. Brooks. Objective Physical Examination Other physical findings PHYSICAL EXAMINATION: VITAL SIGNS: Please see below. GENERAL: No distress HEENT: Normocephalic, atraumatic, moist mucous membranes NECK: Supple CARDIOVASCULAR EXAMINATION: S1, S2 RESPIRATORY EXAMINATION: CTAB ABDOMINAL EXAMINATION: Soft, nontender, nondistended, positive bowel sounds EXTREMITIES: no edema, bruising on lateral hips, nontender to palpation SKIN: No rash NEUROLOGICAL EXAMINATION: Alert and oriented 3, no focal deficits PSYCHIATRIC EXAMINATION: Calm and cooperative, [appropriate] affect Assessment /Plan Assessment Pt is a 73-year-old male with past medical history of CVA 2, L2-L3 spinal stenosis, history of atrial fibrillation on aspirin but not on anti-coagulation, osteoporosis, history of ambulatory dysfunction with walker use, CAD status post CABG, dyslipidemia, at bedtime PEF, gout, morbid obesity with a BMI of 40, CK D stage III, prediabetes, history of left hip replacement, right ankle surgery. Complains of chronic right hip pain which she has been taking [place] daily, and was admitted for observation due to uncontrolled pain. #R hip pain: OA vs microfracture vs nerve impingement, follow-up with orthopedic recommendations, per daughter, patient has never had an MRI due to his history of stents, cont: fall precautions and pain management ; plan for voltaren Rx as out patient, follow-up on PT recs #hypokalemia: likely d/t meds, replace # Severe L2/L3 spinal stenosis : see above #Osteoporosis / L3 Vertebral Compression Fx : outpt f/u #hx CVA 2: cont home management #Atrial fibrillation: Not on an tight coagulation due to history of GI bleed #Iron deficiency anemia: Continue home meds #Chronic CAD, status post triple bypass / Dyslipidemia: continue home meds #Prediabetes: monitor, consider ISS #Chronic Diastolic CHF / Chronic hypertension: cont. home meds #BPH: continue home meds # GERD: continue home meds # Restless leg syndrome: continue home meds #Morbid obesity with BMI 40.8: Has LOGAN/OHS but is not using w CPAP, outpt f/u DVT Ppx with Lovenox Full code DISPO: dc home 01/24 Plan/VTE VTE Prophylaxis Ordered?: Yes VS, I&O, 24H, Fishbone Vital Signs/I&O Vital Signs Date Time Temp Pulse Resp B/P (MAP) Pulse Ox O2 Delivery O2 Flow Rate FiO2 01/23/19 06:00 97.0 68 15 131/64 (86) 93 Room Air I&O- Last 24 Hours up to 6 AM 01/23/19 06:00 Intake Total 880 ml Balance 880 ml Laboratory Data 24H LABS Laboratory Tests 2 01/22/19 17:10: Immature Granulocyte % (Auto) 0.3, Neutrophils (%) (Auto) 56.1, Lymphocytes (%) (Auto) 29.7, Monocytes (%) (Auto) 10.3H, Eosinophils (%) (Auto) 2.7, Basophils (%) (Auto) 0.9, Neutrophils # (Auto) 3.8, Lymphocytes # (Auto) 2.0, Monocytes # (Auto) 0.7, Eosinophils # (Auto) 0.2, Basophils # (Auto) 0.1, Nucleated Red Blood Cells % (auto) 0.0, Lactic Acid Level 1.5, Total Bilirubin 1.1H, Direct Bilirubin 0.5H, Aspartate Amino Transf (AST/SGOT) 51H, Alanine Aminotransferase (ALT/SGPT) 35, Alkaline Phosphatase 100, Total Protein 7.2, Albumin 3.3, Albumin/Globulin Ratio 0.85L, Lipase 178 01/22/19 17:32: Urine Color YELLOW, Urine Appearance CLEAR, Urine pH 7.0, Urine Specific [place] 1.008, Urine Protein NEGATIVE, Urine Glucose (UA) NEGATIVE, Urine Ketones NEGATIVE, Urine Blood NEGATIVE, Urine Nitrite NEGATIVE, Urine Bilirubin NEGATIVE, Urine Urobilinogen 0.2, Urine Leukocyte Esterase NEGATIVE, Urine WBC (Auto) 1, Urine RBC (Auto) 0, Urine Hyaline Casts (Auto) 0, Urine Bacteria (Auto) NEGATIVE, Urine Squamous Epithelial Cells 1, Urine Sperm (Auto) 01/22/19 18:02: POC Glucose (Misc Panel) 113H, POC Sodium (Misc Panel) 140, POC Potassium (Misc Panel) 3.7, POC Chloride (Misc Panel) 99, POC Total CO2 (Misc Panel) 34.0H, POC Blood Urea Nitrogen (Misc Panel 26, POC Ionized Calcium (Misc Panel) 4.8, POC Creatinine (Misc Panel) 1.5H, POC Hematocrit (Misc Panel) 34.0L CBC/BMP Laboratory Tests 01/22/19 17:10 NICK WALLACE MD Jan 23, 2019 07:25
[2019-01-23 08:40] LABS: HEMATOCRIT 34.7 % (42.0-52.0); HEMOGLOBIN 9.9 g/dl (13.5-17.5); MEAN CORPUSCULAR HEMOGLOBIN 24.3 pg (27.0-33.0); MEAN CORPUSCULAR HGB CONC 28.5 g/dl (32.0-36.5); MEAN CORPUSCULAR VOLUME 85.3 fl (80.0-96.0); PLATELET COUNT, AUTOMATED 150 10^3/uL (150-450); RED BLOOD COUNT 4.07 10^6/uL (4.30-6.10); WHITE BLOOD COUNT 5.6 10^3/uL (4.0-10.0)
[2019-01-23] MEDS: PANTOPRAZOLE 40MG TAB (PROTONIX) PO SCH (08:42)
[2019-01-23] MEDS: ENOXAPARIN 40 MG/0.4 ML SYRINGE (J1650) SC SCH (08:42)
[2019-01-23] MEDS: FERROUS SULFATE 325MG TAB PO SCH (08:43)
[2019-01-23] MEDS: SERTRALINE 100 MG TAB PO SCH (08:43)
[2019-01-23] MEDS: ALLOPURINOL 300 MG TAB PO SCH (08:43)
[2019-01-23] MEDS: ASPIRIN 81 MG ENTERIC TAB PO SCH (08:43)
[2019-01-23] MEDS: POTASSIUM CHLORIDE 10 MEQ SR TABLET PO SCH (08:43)
[2019-01-23 09:01] LABS: CALCIUM LEVEL 9.4 MG/DL (8.8-10.2); CREATININE FOR GFR 1.46 MG/DL (0.70-1.30); GLOMERULAR FILTRATION RATE 50.1 (>42); POTASSIUM SERUM 3.1 MEQ/L (3.5-5.1)
[2019-01-23] MEDS ORDERED: **NOTE PATIENT COMMENT** MISC XX SCH (10:00)
[2019-01-23] MEDS: FENOFIBRATE 145 MG TAB (TRICOR) PO SCH (11:42)
[2019-01-23] MEDS: TORSEMIDE 100 MG TAB PO SCH (11:42)
[2019-01-23] MEDS: SPIRONOLACTONE 12.5MG PER 1/2 TABLET PO SCH (11:43)
[2019-01-23] MEDS ORDERED: NALOXONE INJ 0.4 MG/1 ML VIAL (J2310) IV PRN (13:15)
[2019-01-23] MEDS ORDERED: NORCO, ANEXSIA 5/325MG TABLET (HYDROcodone/ACETAMINOPHEN) PO PRN (13:15)
[2019-01-23 14:00] VITALS: BP 127/59
[2019-01-23] MEDS ORDERED: TORSEMIDE 20 MG TAB PO SCH (17:00)
[2019-01-23] MEDS ORDERED: rOPINIRole 1MG TAB PO SCH ×2 (17:00→21:00)
[2019-01-23] MEDS ORDERED: PREGABALIN 100 MG CAP (LYRICA) PO SCH ×2 (17:00→21:00)
[2019-01-23] MEDS ORDERED: POTASSIUM CHLORIDE 10 MEQ SR TABLET PO ONE (19:30)
[2019-01-23 20:00] VITALS: BP 145/67
[2019-01-23] MEDS ORDERED: POTASSIUM CHLORIDE 10 MEQ SR TABLET PO SCH (21:00)
[2019-01-23] MEDS ORDERED: ROSUVASTATIN 10 MG TAB (CRESTOR) PO SCH (21:00)
[2019-01-23] MEDS ORDERED: traMADol ER 100MG TABLET (ULTRAM ER) PO SCH (21:00)
[2019-01-24 04:00] VITALS: BP 112/63
--- NOTE | 2019-01-24 05:52 | CR ---
DATE OF CONSULTATION: 01/23/2019 CHIEF COMPLAINT: Back pain radiating to the right buttock. HISTORY: Patient is a 73-year-old gentleman with multiple medical comorbidities, including coronary artery disease and carotid artery disease, who has had years of back pain. For about 2 weeks, he has had pain radiating down the right buttock and out to outside of the right thigh, not the left thigh, and it causes pain when trying to ambulate. Patient does relate that his symptoms have been worse since he fell asleep on a toilet and fell off the toilet. He came in yesterday with increasing pain. He had a CT scan of the back that suggested possible new compression fracture around L3 level and significant spinal stenosis there, significant spinal stenosis at L4-5, some chronicity to a lot of the spinal stenosis but potentially worsening spinal stenosis at the L2-3 level compared to previous study done in October. He has had carotid artery stenting and hemoclips placed more than several years ago done at [facility]. He has also had a coronary bypass. He has been told he could not have an MRI because they could not locate the cards for the stents. Review with the hospital nursing, they are trying to obtain the information on his carotid stents and coronary stents. He has not had an MRI yet because of that. He has had plain films of the hip that reflect no acute process and no fracture appreciated. Summary reviewed chart. CLINICAL EXAM: Alert, oriented, cooperative. Mood and affect appropriate. Healthy skin face, upper and lower extremities. Trace edema lower extremities. He seems to be an obese, elderly white male. His voice is clear. He is not short of breath. He is sitting eating his lunch. Does not appear to be in distress. He does have some pain towards the right buttock. Does appreciate light touch in the lower extremities. No Hilton catheter has been required. IMPRESSION: Question right lower extremity radiculopathy or neurogenic claudication versus some other process. RECOMMENDATIONS: Recommendation is to assess potential for acute or subacute compression fracture. I would recommend an MRI of the lumbosacral (LS) spine including STIR weighted images. If that study does not explain the patient's symptoms adequately, additional considerations will include a bone scan to evaluate for subacute fracture around the LS spine or pelvic area. This was explained to the patient. He understands.
[2019-01-24] MEDS: ACETAMINOPHEN 650MG ER TAB (TYLENOL ARTHRITIS) PO SCH ×2 (06:33→12:35)
[2019-01-24] MEDS: ASPIRIN 81 MG ENTERIC TAB PO SCH (08:29)
[2019-01-24] MEDS: SERTRALINE 100 MG TAB PO SCH (08:30)
[2019-01-24] MEDS: TORSEMIDE 100 MG TAB PO SCH (08:30)
[2019-01-24] MEDS: POTASSIUM CHLORIDE 10 MEQ SR TABLET PO SCH (08:30)
[2019-01-24] MEDS: PANTOPRAZOLE 40MG TAB (PROTONIX) PO SCH (08:30)
[2019-01-24] MEDS: FERROUS SULFATE 325MG TAB PO SCH (08:30)
[2019-01-24] MEDS: FENOFIBRATE 145 MG TAB (TRICOR) PO SCH (08:30)
[2019-01-24] MEDS: ALLOPURINOL 300 MG TAB PO SCH (08:30)
[2019-01-24] MEDS: SPIRONOLACTONE 12.5MG PER 1/2 TABLET PO SCH (08:31)
[2019-01-24] MEDS: ENOXAPARIN 40 MG/0.4 ML SYRINGE (J1650) SC SCH (08:31)
[2019-01-24] MEDS ORDERED: ACET-683 PO (15:45)
[2019-01-24] MEDS ORDERED: IBUP-1022 PO (15:45)
--- NOTE | 2019-01-24 21:55 | DS.PDOC ---
Discharge Summary General Date of Admission Jan 22, 2019 at 16:33 Date of Discharge 01/24/19 Discharge Summary PROCEDURES PERFORMED DURING STAY: None. ADMITTING DIAGNOSES: 1. R hip pain. DISCHARGE DIAGNOSES: 1. R hip pain with radiculopathy. COMPLICATIONS/CHIEF COMPLAINT: Hip Pain, Left. HISTORY OF PRESENT ILLNESS & HOSPITAL COURSE: Pt is a 73-year-old male with past medical history of CVA 2, L2-L3 spinal stenosis, history of atrial fibrillation on aspirin but not on anti-coagulation, osteoporosis, history of ambulatory dys function with walker use, CAD status post CABG, dyslipidemia, at bedtime PEF, gout, morbid obesity with a BMI of 40, CK D stage III, prediabetes, history of left hip replacement, right ankle surgery. Complains of chronic right hip pain which she has been taking [place] daily, and was admitted for observation due to uncontrolled pain. His hospitalization, pain was controlled on Tylenol, and tramadol at night, he did not require additional [place]. Orthopedic neurosurgery was consulted with recommendations for outpatient follow-up. Were unable to obtain MRI of the lumbar spine, we were not able to locate records of previous cardiac stents. He had a bone scan on 12/28/2018, revealing increased radionucleotide accumulation and L3 consistent with recent compression fracture, interactive type uptake pattern on axial skeleton. PT was consult, recommendations, the patient does not need inpatient rehabilitation. Discussed pain management, Tylenol 1000mg every 8 hours when necessary, he can use ibuprofen 600 every 6 hours as needed intermittently with Tylenol to be taken with food due to GI upset, creatinine grossly within normal limits, Vicodin 10 /650 at night, he is to follow-up with his primary care physician in 1-2 weeks, follow-up with Dr. Brooks 1-2 weeks with cardiac stent information. Weight loss was discussed. Questions were answered. DISCHARGE MEDICATIONS: Please see below. ALLERGIES: Please see below. PHYSICAL EXAMINATION ON DISCHARGE: VITAL SIGNS: Please see below. VITAL SIGNS: Please see below. GENERAL: Obese male in no acute distress HEENT: Normocephalic, atraumatic, moist mucous membranes NECK: Supple CARDIOVASCULAR EXAMINATION: S1, S2 RESPIRATORY EXAMINATION: CTAB ABDOMINAL EXAMINATION: Soft, nontender, nondistended, positive bowel sounds EXTREMITIES: no edema, bruising on lateral hips, nontender to palpation SKIN: No rash NEUROLOGICAL EXAMINATION: Alert and oriented 3, no focal deficits PSYCHIATRIC EXAMINATION: Calm and cooperative, appropriate affect LABORATORY DATA: Please see below. IMAGING: L2/3 and L4/5 spinal stenosis PROGNOSIS: stable ACTIVITY: As tolerated. DIET: heart healthy DISCHARGE PLAN: home DISPOSITION: Home, Self-Care. DISCHARGE INSTRUCTIONS: 1. see above. ITEMS TO FOLLOWUP ON ON OUTPATIENT: 1. see above. DISCHARGE CONDITION: Stable. TIME SPENT ON DISCHARGE: 35 minutes. Vital Signs/I&Os Vital Signs Date Time Temp Pulse Resp B/P (MAP) Pulse Ox O2 Delivery O2 Flow Rate FiO2 01/24/19 04:00 96.9 72 18 112/63 (79) 97 Room Air I&O- Last 24 Hours up to 6 AM 01/24/19 06:00 Intake Total 1620 ml Output Total 1000 ml Balance 620 ml Discharge Medications Scheduled Allopurinol (Zyloprim) 300 Mg Tablet, 300 MG PO DAILY, (Reported) Aspirin (Aspirin EC) 81 Mg Tablet.dr, 81 MG PO DAILY, (Reported) Ergocalciferol (Vitamin D2) (Drisdol) 50,000 Unit Capsule, 50,000 UNIT PO 1XWK, (Reported) TUESDAY Fenofibrate (Fenofibrate) 160 Mg Tab, 160 MG PO DAILY, (Reported) Ferrous Sulfate (Ferrous Sulfate) 325 Mg Tablet.dr, 325 MG PO DAILY, (Reported) Pantoprazole Sodium (Pantoprazole Sodium) 40 Mg Tablet.dr, 40 MG PO DAILY, (Re ported) Potassium Chloride (Potassium Chloride) 10 Meq Tab, 20 MEQ PO DAILY, (Reported) Potassium Chloride (Potassium Chloride) 10 Meq Tab.er.prt, 10 MEQ PO QHS, (Reported) Pregabalin (Pregabalin) 200 Mg Capsule, 200 MG PO QHS, (Reported) Ropinirole HCl (Ropinirole HCl) 5 Mg Tablet, 5 MG PO QHS, (Reported) Rosuvastatin Calcium (Rosuvastatin Calcium) 20 Mg Tablet, 20 MG PO QHS, (Reported) Sertraline HCl (Sertraline HCl) 100 Mg Tab, 100 MG PO DAILY, (Reported) Spironolactone (Spironolactone) 25 Mg Tab, 12.5 MG PO DAILY, (Reported) Torsemide (Torsemide) 100 Mg Tab, 100 MG PO DAILY, (Reported) Torsemide (Torsemide) 10 Mg Tablet, 40 MG PO QPM, (Reported) DINNERTIME Scheduled PRN Acetaminophen (Acetaminophen) 500 Mg Tablet, 1,000 MG PO Q8H prn PRN for BACK PAIN Ibuprofen (Ibuprofen) 600 Mg Tablet, 600 MG PO Q6H prn PRN for PAIN take with food Nitroglycerin (Nitroglycerin) 0.4 Mg Sub, 0.4 MG SL NITRO PRN for CHEST PAIN, (Reported) Allergies Coded Allergies: No Known Allergies (Verified , 03/02/05) NICK WALLACE MD Jan 24, 2019 21:55
== END 2019-01-24 17:10 | disposition home or self-care (01) ==
LOC: M ED 16:32 → M ED INP 16:33 → M MS4PR 23:30
PROVIDERS: ADMIT Internal Medicine; ATTEND Internal Medicine
DX: M25.551 Pain in right hip (principal); M54.16 Radiculopathy, lumbar region; E78.5 Hyperlipidemia, unspecified; N18.3 Chronic kidney disease, stage 3 (moderate); R73.03 Prediabetes; I48.91 Unspecified atrial fibrillation; I25.10 Atherosclerotic heart disease of native coronary artery without angina pectoris; M10.9 Gout, unspecified; D50.9 Iron deficiency anemia, unspecified; M81.0 Age-related osteoporosis without current pathological fracture; K21.9 Gastro-esophageal reflux disease without esophagitis; Z86.73 Personal history of transient ischemic attack (TIA), and cerebral infarction without residual deficits; Z95.1 Presence of aortocoronary bypass graft; N40.0 Benign prostatic hyperplasia without lower urinary tract symptoms; G47.33 Obstructive sleep apnea (adult) (pediatric); E66.01 Morbid (severe) obesity due to excess calories; Z87.891 Personal history of nicotine dependence; G25.81 Restless legs syndrome
CPT/HCPCS: 36415; 71111; 72131; 73502; 73552; 74177; 76705; 80047; 80048; 80076; 81001; 83605; 83690; 85025; 85027; 96361; 96374; 96375; 97161; 99284; G0378; J1650; J2270; J2405; Q9967

== ENCOUNTER → 2019-02-07 | Outpatient (REF) | payer MEDICARE, BC ==
[~2019-02-07] MED LIST changes: +ACET-683 PO; +ASPI-161 PO; +IBUP-1022 PO; +POTA10TA17 PO; +PREG200C PO; +TORS10TA3 PO
[2019-02-07 20:14] LABS: PERCENT SATURATION 6.5 % (19.7-50.0)
== END ==
LOC: M LAB REF 18:44
PROVIDERS: ATTEND Nurse Practitioner Family
DX: D64.9 Anemia, unspecified (principal)

== ENCOUNTER → 2019-05-10 | Outpatient (REF) | payer MEDICARE, BC ==
[~2019-05-10] MED LIST changes: -ROPI1TAB PO; +ROPI1TAB3 PO
[2019-05-10 14:22] LABS: PERCENT SATURATION 5.1 % (19.7-50.0)
== END ==
LOC: M LAB REF 13:18
PROVIDERS: ATTEND Nurse Practitioner Family
DX: D50.9 Iron deficiency anemia, unspecified (principal)

== ENCOUNTER 2019-05-15 08:17 | Outpatient (CLI) | payer MEDICARE, BC ==
[~2019-05-15] VITALS: Ht 170.2 cm; Wt 120.0 kg
[2019-05-15 08:25] VITALS: BP 131/60
[2019-05-15] MEDS ORDERED: HYDR-4517 PO (08:46)
[2019-05-15] MEDS ORDERED: K-TA10TA2 PO (08:50)
[2019-05-15] MEDS ORDERED: NS 1,000 ML IV SCH (09:00)
[2019-05-15] MEDS ORDERED: FERRIC CARBOXYMALTOSE INJ 750 MG in NS 250 ML IV ONE (09:00)
[2019-05-15] MEDS ORDERED: methylPREDNISolone INJ 125 MG/2 ML VIAL (J2930) IV PRN (09:00)
[2019-05-15] MEDS ORDERED: EPINEPHrine INJ 1 MG/ML 1ML VIAL IM PRN (09:00)
[2019-05-15] MEDS ORDERED: diphenhydrAMINE INJ 50MG/ML VIAL (J1200) IV PRN (09:00)
[2019-05-15] MEDS ORDERED: ALBUTEROL SULFATE 2.5 MG/0.5 ML INH NEB SOLN INH PRN (09:00)
[2019-05-15 09:30] VITALS: BP 123/58
[2019-05-15 10:58] VITALS: BP 148/65
[2019-05-15 12:00] VITALS: BP 122/56
== END 2019-05-15 12:00 | disposition home or self-care (01) ==
LOC: M INFU 08:17
PROVIDERS: ATTEND Internal Medicine Nephrology
DX: D50.9 Iron deficiency anemia, unspecified (principal)
CPT/HCPCS: 96365; 96366; J1439

== ENCOUNTER 2020-01-12 17:29 | Observation (INO) | payer MEDICARE, BC ==
[~2020-01-12] VITALS: Ht 175.3 cm; Wt 116.0 kg
[2020-01-12] MEDS: rOPINIRole 1MG TAB PO SCH (03:30)
[~2020-01-12 17:29] MED LIST changes: +HYDR-4517 PO; +K-TA10TA2 PO; -LISI-1046 PO; +LISI2.5T2 PO; +PANT40TA29 PO; -PANT40TA3 PO
[2020-01-12] MEDS ORDERED: BOOSTRIX/ADACEL VACCINE (DIPHTH/PERTUSS/ACELL/TETANUS) 0.5ML SYR IM ONE (18:00)
[2020-01-12 18:35] LABS: BASO # 0.1 10^3/uL (0.0-0.2); BASO % 0.9 % (0.0-1.0); EOS # 0.2 10^3/uL (0.0-0.5); EOS % 2.8 % (0.0-3.0); HEMATOCRIT 45.1 % (42.0-52.0); HEMOGLOBIN 14.1 g/dl (13.5-17.5); LYMPH # 1.5 10^3/uL (1.5-5.0); LYMPH % 27.9 % (24.0-44.0); MEAN CORPUSCULAR HEMOGLOBIN 29.5 pg (27.0-33.0); MEAN CORPUSCULAR HGB CONC 31.3 g/dl (32.0-36.5); MEAN CORPUSCULAR VOLUME 94.4 fl (80.0-96.0); MONO # 0.5 10^3/uL (0.0-0.8); MONO % 9.4 % (0.0-5.0); NEUTROPHILS # 3.2 10^3/uL (1.5-8.5); NEUTROPHILS % 58.6 % (36.0-66.0); RED BLOOD COUNT 4.78 10^6/uL (4.30-6.10); WHITE BLOOD COUNT 5.4 10^3/uL (4.0-10.0)
[2020-01-12] MEDS ORDERED: ISOVUE-370 76% 100ML VIAL As Ordered ONE (18:40)
[2020-01-12 18:44] LABS: INR 1.1; PROTHROMBIN TIME 14.4 SECONDS (12.5-14.3)
[2020-01-12 18:45] LABS: PARTIAL THROMBOPLASTIN TIME 30.4 SECONDS (24.2-38.5)
[2020-01-12] MEDS ORDERED: MORPHINE 2 MG/ML 1ML VIAL (J2270) IV ONE ×2 (18:45→22:15)
[2020-01-12 18:52] LABS: PLATELET COUNT, AUTOMATED 65 10^3/uL (150-450)
--- NOTE | 2020-01-12 18:52 | REP ---
INDICATION: right upper leg/hip pain. COMPARISON: Right knee today, femur 01/22/2019. TECHNIQUE: Four views FINDINGS: Hip joint space is preserved. There is no visible fracture or focal bone lesion about the acetabulum and pubic rami. The hip and femoral shaft are without fracture or focal lesion. There is a vascular stent in the common femoral artery. There are some vascular calcifications in the distal thigh and metallic clips from presumed vein graft harvest in the distal medial thigh and proximal calf. There is prominent soft tissue swelling in a collection in the prepatellar region. No definite joint effusion. No fracture about the distal femur and knee. IMPRESSION: 1. Prominent prepatellar traumatic bursitis. 2. No visible fracture, avulsion or focal lesion. There surgical clips from prior vein graft harvest in the distal of thigh and upper calf medially and a vascular stent over the common femoral artery location. <Electronically signed by Pb Bob > 01/12/20 [id number]
--- NOTE | 2020-01-12 18:55 | REP ---
INDICATION: right knee pain. COMPARISON: Left femur 01/22/2019 TECHNIQUE: Four views FINDINGS: Lateral view shows prominent soft tissue swelling in the prepatellar region. Its superior margin is sharply defined. There is subcutaneous edema above and below it. No gross joint effusion on the lateral view. There is no visible fracture of the patella distal femur with a proximal tibia and fibula. Metallic clips in the medial distal thigh and proximal calf from prior vein graft harvest. Vascular calcifications in the distal femoral and popliteal artery noted. IMPRESSION: There is very prominent prepatellar soft tissue bursitis with adjacent soft tissue edema. No joint effusion or visible fracture. <Electronically signed by Pb Bob > 01/12/20 [id number]
[2020-01-12 19:06] LABS: ALBUMIN 3.2 GM/DL (3.2-5.2); BILIRUBIN,DIRECT 0.5 MG/DL (0.0-0.2); BILIRUBIN,TOTAL 1.1 MG/DL (0.2-1.0); CK-MB VALUE MASS 3.1 NG/ML (<3.6); MB/CK RELATIVE INDEX 2.18 (< OR =4); TOTAL PROTEIN 7.3 GM/DL (6.4-8.2); TROPONIN I 0.02 NG/ML (< 0.10)
--- NOTE | 2020-01-12 20:05 | REPVR ---
PROCEDURE INFORMATION: Exam: CT Head Without Contrast Exam date and time: 01/12/2020 6:54 PM Age: 74 years old Clinical indication: Injury or trauma; Fall; Blunt trauma (contusions or hematomas) TECHNIQUE: Imaging protocol: Computed tomography of the head without contrast. Radiation optimization: All CT scans at this facility use at least one of these dose optimization techniques: automated exposure control; mA and/or kV adjustment per patient size (includes targeted exams where dose is matched to clinical indication); or iterative reconstruction. COMPARISON: No relevant prior studies available. FINDINGS: Brain: Moderately advanced generalized cerebral atrophy. Mild patchy low-density in the periventricular white matter extending into phillip radiata and centrum semiovale bilaterally. Mild chronic microvascular 1.4 cm chronic subcortical infarct left frontoparietal lobe. No hemorrhage. No mass effect. Midline structures intact. Cerebral ventricles: No ventriculomegaly. Bones/joints: Unremarkable. No acute fracture. Paranasal sinuses: Visualized sinuses are unremarkable. No fluid levels. Mastoid air cells: Visualized mastoid air cells are well aerated. Soft tissues: 2 cm rounded soft tissue mass within the scalp over the right parietal convexity is partially calcified. IMPRESSION: 1. No acute findings. 2. Moderately advanced cerebral atrophy with small subcortical infarct left frontoparietal lobe 3. Sebaceous cyst in the scalp over the right parietal calvarium at the high convexity Electronically signed by: Jeanne Peraza On 01/12/2020 20:01:17 PM
--- NOTE | 2020-01-12 20:10 | REPVR ---
PROCEDURE INFORMATION: Exam: CT Cervical Spine Without Contrast Exam date and time: 01/12/2020 6:54 PM Age: 74 years old Clinical indication: Injury or trauma; Fall; Blunt trauma TECHNIQUE: Imaging protocol: Computed tomography images of the cervical spine without contrast. Radiation optimization: All CT scans at this facility use at least one of these dose optimization techniques: automated exposure control; mA and/or kV adjustment per patient size (includes targeted exams where dose is matched to clinical indication); or iterative reconstruction. COMPARISON: No relevant prior studies available. FINDINGS: Vertebrae: No acute fracture. Normal alignment. C2-C3: No significant disc protrusion. Facet arthropathy on the left. No severe spinal canal stenosis. No significant neural foraminal narrowing. C3-C4: Posterior disc osteophyte ridge. Advanced facet arthropathy on the left. Uncovertebral hypertrophy bilaterally. Mild to moderate bilateral foraminal stenosis.. No severe spinal canal stenosis. C4-C5: Posterior disc osteophyte ridge. Advanced hypertrophic facet arthropathy on the left.. No severe spinal canal stenosis. No significant neural foraminal narrowing. C5-C6: Posterior disc osteophyte ridge with impression upon the ventral margin thecal sac and the spinal cord.. Uncovertebral hypertrophy bilaterally. Mild to moderate right foraminal stenosis. Moderate to severe central stenosis.. C6-C7: Posterior disc osteophyte ridge with impression upon the ventral margin of the thecal sac and the spinal cord. Uncovertebral hypertrophy bilaterally particularly on the right with moderate right foraminal stenosis.. Moderate to severe central stenosis. C7-T1: No significant disc protrusion. No severe spinal canal stenosis. No significant neural foraminal narrowing. Soft tissues: Unremarkable. Lungs: Lung apices are normal. IMPRESSION: 1. No acute findings. 2. Multilevel degenerative disc disease and facet arthropathy. Multilevel central and foraminal stenosis. See above comments. Electronically signed by: Jeanne Peraza On 01/12/2020 20:10:03 PM
--- NOTE | 2020-01-12 20:29 | REPVR ---
PROCEDURE INFORMATION: Exam: CT Abdomen And Pelvis With Contrast Exam date and time: 01/12/2020 6:54 PM Age: 74 years old Clinical indication: Injury or trauma; Fall; Blunt; Generalized TECHNIQUE: Imaging protocol: Computed tomography of the abdomen and pelvis with intravenous contrast. Radiation optimization: All CT scans at this facility use at least one of these dose optimization techniques: automated exposure control; mA and/or kV adjustment per patient size (includes targeted exams where dose is matched to clinical indication); or iterative reconstruction. Contrast material: ISOVUE 370; Contrast volume: 100 ml; Contrast route: INTRAVENOUS (IV); COMPARISON: CT ABD/PEL W/IV CONTRAST ONLY 01/22/2019 7:17 PM FINDINGS: Lungs: For details regarding the lungs, refer to the CT chest report on 01/12/2020. Heart: For details regarding the heart, refer to the CT chest report on 01/12/2020. Liver: The liver is intact. The liver has a nodular contour, which can be seen with cirrhosis. No liver lesion is noted. No hepatomegaly. Gallbladder and bile ducts: There is a 7 mm calcified gallstone in distal body of distended gallbladder. No gallbladder wall thickening, pericholecystic fluid, or inflammatory fat stranding is noted around the gallbladder. No dilation of the bile ducts is noted. No calcified stones are seen in the common bile duct. Pancreas: Normal. No dilation of the main pancreatic duct is noted. There is no inflammatory fat stranding around the pancreas to suggest acute pancreatitis. Spleen: No splenic lesion is noted. The spleen is enlarged and measures 13.8 cm. Adrenal glands: Normal. No adrenal mass is noted. Kidneys and ureters: The kidneys are intact. There is nonobstructive bilateral nephrolithiasis. No stones are noted in the ureters. There are bilateral benign-appearing renal cysts, the largest measuring 15 mm in the midpole of the left kidney, which are stable compared to the prior CT abdomen and pelvis on 01/22/2019 and for which further follow-up is not necessary. Stomach and bowel: The stomach is decompressed, limiting its optimal evaluation. The small bowel is unremarkable. There is no evidence for a bowel obstruction, diverticulosis, diverticulitis, perforated viscus, pneumatosis intestinalis, intussusception, or volvulus. The ascending colon, transverse colon, descending colon are decompressed, limiting their optimal evaluation. There is no pericolonic inflammatory fat stranding. Appendix: Normal. There is no evidence for appendicitis. Intraperitoneal space: No free air. No hemorrhage. Retroperitoneal space: No retroperitoneal hemorrhage. Vasculature: The abdominal aorta is patent, normal in caliber, and there is no dissection. The iliac arteries, common femoral arteries, renal arteries, celiac artery, superior mesenteric artery, and inferior mesenteric artery are patent. There are moderate atherosclerotic calcifications. Incidental note is made of a retroaortic left renal vein. Lymph nodes: No enlarged lymph nodes. Urinary bladder: The urinary bladder is intact. No stones or masses are seen in the bladder. Reproductive: The prostate gland and seminal vesicles are unremarkable. Bones/joints: There is no acute fracture or dislocation. There is a chronic mild superior endplate compression fracture of L3 with retropulsion of the posterosuperior cortex by 4 mm into the spinal canal, which is stable compared to the prior CT abdomen and pelvis on 01/22/2019. There is a mild levoscoliosis of the lumbar spine and degenerative changes in the lumbar spine. There is a grade 1 anterolisthesis of L4 on L5 secondary to severe osteoarthritis of the L4-L5 facet joints. Left total hip arthroplasty hardware is in place, which causes streak artifact. The distal portion of the hardware was not fully imaged. Soft tissues: There is nonspecific edema in the subcutaneous tissues posteriorly along the midline of the lumbar spine. IMPRESSION: 1. No CT evidence for acute traumatic injury in the abdomen or pelvis. 2. Nodular contour of the liver, which can be seen with cirrhosis. 3. Splenomegaly. 4. Cholelithiasis without CT evidence for cholecystitis. 5. Nonobstructive bilateral nephrolithiasis. 6. Chronic mild superior endplate compression fracture of L3 with retropulsion of the posterosuperior cortex by 4 mm into the spinal canal, which is stable compared to the prior CT abdomen and pelvis on 01/22/2019. Electronically signed by: Cecilio Bunn On 01/12/2020 20:29:23 PM
--- NOTE | 2020-01-12 20:29 | REPVR ---
PROCEDURE INFORMATION: Exam: CT Thoracic Spine Without Contrast Exam date and time: 01/12/2020 6:54 PM Age: 74 years old Clinical indication: Injury or trauma; Fall; Blunt trauma (contusions or hematomas) TECHNIQUE: Imaging protocol: Computed tomography images of the thoracic spine without contrast. Radiation optimization: All CT scans at this facility use at least one of these dose optimization techniques: automated exposure control; mA and/or kV adjustment per patient size (includes targeted exams where dose is matched to clinical indication); or iterative reconstruction. COMPARISON: No relevant prior studies available. FINDINGS: Vertebrae: There is a mild levoscoliosis of the thoracic spine. There is no fracture. Discs/Spinal canal/Neural foramina: There are degenerative changes in the thoracic spine with endplate spurs and osteoarthritis of the facet joints at multiple levels. No spinal canal or neural foraminal stenosis is noted in the thoracic spine. At the C7-T1 level, there is a 2 mm grade 1 anterolisthesis of C7 on T1 with uncovering of the disc posteriorly secondary to severe osteoarthritis of C7-T1 facet joints. There is intradiscal calcification in lower thoracic spine. Other bones/joints: Postoperative changes are noted from a median sternotomy. Soft tissues: Unremarkable. No soft tissue fluid collection is noted. Mediastinum: Mediastinal clips are in place. Gallbladder and bile ducts: There is a calcified gallstone in the gallbladder. The gallbladder and biliary tree was not fully imaged. Limited kidneys: There is an 8 mm benign-appearing cyst in the superior pole of the right kidney and a 15 mm benign-appearing cyst in the midpole of the left kidney, for which further evaluation and follow-up is not necessary. IMPRESSION: No fracture in the thoracic spine. Electronically signed by: Cecilio Bunn On 01/12/2020 20:29:33 PM
--- NOTE | 2020-01-12 20:30 | REPVR ---
PROCEDURE INFORMATION: Exam: CT Lumbar Spine Without Contrast Exam date and time: 01/12/2020 6:54 PM Age: 74 years old Clinical indication: Injury or trauma; Fall; Blunt trauma (contusions or hematomas) TECHNIQUE: Imaging protocol: Computed tomography images of the lumbar spine without contrast. Radiation optimization: All CT scans at this facility use at least one of these dose optimization techniques: automated exposure control; mA and/or kV adjustment per patient size (includes targeted exams where dose is matched to clinical indication); or iterative reconstruction. COMPARISON: CT Spine, lumbar w/o contrast 01/22/2019 7:17 PM FINDINGS: Vertebrae: There are 5 non-rib bearing lumbar type vertebral bodies. There is a mild levoscoliosis of the lumbar spine. There is a mild superior endplate compression fracture of L3 with retropulsion of the posterosuperior cortex by 4 mm into the spinal canal, which is stable compared to the prior CT lumbar spine on 01/22/2019. No other fractures are noted in the lumbar spine. T12-L1: The disc height is preserved. There is intradiscal calcification, vacuum phenomenon in the intervertebral disc, endplate spurs, and mild osteoarthritis of the facet joints. No spinal canal stenosis, lateral recess stenosis, or neural foraminal stenosis is noted. These findings are similar in appearance compared to the prior CT lumbar spine on 01/22/2019. L1-L2: There is mild loss of disc height, vacuum phenomenon in the intervertebral disc, intradiscal calcification, a broad-based posterior protrusion that is eccentric to the left, endplate spurs, and mild osteoarthritis of the facet joints. There is moderate to severe stenosis of the left lateral recess that has developed since the prior CT lumbar spine on 01/22/2019. No spinal canal stenosis, right lateral recess stenosis, or neural foraminal stenosis is noted. L2-L3: There is mild loss of disc height, vacuum phenomenon in the intervertebral disc, a circumferential disc bulge, thickening of the ligamentum flavum, and mild osteoarthritis of the right facet joint. There is mild spinal canal stenosis and mild stenosis of both lateral recesses. No neural foraminal stenosis is noted. These findings are similar in appearance compared to the prior CT lumbar spine on 01/22/2019. L3-L4: There is severe loss in the height of the posterior and right side of the disc space, vacuum phenomenon in the intervertebral disc, a circumferential disc bulge, endplate spurs, and mild osteoarthritis of the right facet joint. There is mild stenosis of the thecal sac, [id number] right neural foraminal stenosis, and mild left neural foraminal stenosis. No lateral recess stenosis is noted. These findings are similar in appearance compared to the prior CT lumbar spine 01/22/2019. L4-L5: There is mild loss of disc height, vacuum phenomenon in the intervertebral disc, endplate sclerosis on both sides of the right side of the disc space, a 3 mm grade 1 anterolisthesis of L4 on L5 with uncovering of the disc posteriorly, endplate spurs, and severe osteoarthritis of the facet joints. There is moderate spinal canal stenosis, moderate stenosis of both lateral recesses, severe right neural foraminal stenosis, and moderate left neural foraminal stenosis. These findings are similar in appearance compared to the prior CT lumbar spine on 01/22/2019. L5-S1: The disc height is preserved. There is intradiscal calcification and severe osteoarthritis of the facet joints. No spinal canal stenosis, lateral recess stenosis, or neural foraminal stenosis is noted. Other bones/joints: Left total hip arthroplasty hardware was partially imaged. Gallbladder and bile ducts: There is a gallstone in the gallbladder. The gallbladder and biliary tree were not fully imaged. Limited kidneys: There is bilateral nonobstructive nephrolithiasis. There are benign-appearing bilateral renal cysts, the largest measuring 15 mm in the midpole of the left kidney, for which further evaluation and follow-up is not necessary. The kidneys were not fully imaged. Vasculature: No abdominal aortic aneurysm. Soft tissues: There is nonspecific edema in the subcutaneous tissues posteriorly along the midline of the lumbar spine. No soft tissue fluid collection is noted. IMPRESSION: 1. No acute fracture in the lumbar spine. 2. Chronic mild superior endplate compression fracture of L3 with retropulsion of the posterosuperior cortex by 4 mm into the spinal canal, which are stable findings compared to the prior CT lumbar spine on 01/22/2019. 3. L1-L2: Moderate to severe stenosis of the left lateral recess that has developed since the prior CT lumbar spine on 01/22/2019. 4. L2-L3: Mild spinal canal stenosis and mild stenosis of both lateral recesses. 5. L3-L4: Mild stenosis of the thecal sac, mild to moderate right neural foraminal stenosis, and mild left neural foraminal stenosis. 6. L4-L5: Moderate spinal canal stenosis, moderate stenosis of both lateral recesses, severe right neural foraminal stenosis, and moderate left neural foraminal stenosis. COMMENTS: Consistent with the [employer]'s Incidental Findings Committee white paper (J Am Lin Radiol 2018): Any incidental renal lesion less than 1 cm or classified as too small to characterize, or any incidental cystic renal lesion characterized as simple-appearing, is likely benign. No follow-up imaging is recommended for these lesions per consensus recommendations based on imaging criteria. Electronically signed by: Cecilio Bunn On 01/12/2020 20:29:45 PM
--- NOTE | 2020-01-12 20:30 | REPVR ---
PROCEDURE INFORMATION: Exam: CT Chest With Contrast Exam date and time: 01/12/2020 6:54 PM Age: 74 years old Clinical indication: Injury or trauma; Fall; Blunt trauma (contusions or hematomas) TECHNIQUE: Imaging protocol: Computed tomography of the chest with intravenous contrast. Radiation optimization: All CT scans at this facility use at least one of these dose optimization techniques: automated exposure control; mA and/or kV adjustment per patient size (includes targeted exams where dose is matched to clinical indication); or iterative reconstruction. Contrast material: ISOVUE 370; Contrast volume: 100 ml; Contrast route: INTRAVENOUS (IV); COMPARISON: No relevant prior studies available. FINDINGS: Thyroid: Unremarkable. Tracheobronchial tree: Intact and patent. Lungs: There is mild dependent atelectasis in both lower lobes. The lungs are otherwise clear. There is no evidence for a pulmonary contusion or pulmonary laceration. There is no lung consolidation or mass. No emphysematous changes or interstitial lung disease is noted. Pleural space: Normal. No pneumothorax or pleural effusion. Heart: The left atrium is dilated. There is lipomatous hypertrophy of the interatrial septum. Postoperative changes are noted from a CABG. No pericardial effusion. Mediastinal space: No mediastinal mass, fluid collection, or pneumomediastinum. Pulmonary arteries: There is no pulmonary embolism in the main, lobar, or segmental pulmonary arteries. The timing of the contrast bolus was suboptimal for the assessment of the subsegmental pulmonary arteries, which are poorly opacified. Aorta: The thoracic aorta is intact and patent. There is no thoracic aortic aneurysm, pseudoaneurysm, penetrating atherosclerotic ulcer, intramural hematoma, or dissection. There are mild atherosclerotic calcifications. Great vessels off aortic arch: The brachiocephalic artery, imaged proximal portions of the common carotid arteries, imaged proximal portions of the vertebral arteries, and subclavian arteries are intact. No stenosis or occlusion of these vessels is noted. 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 Lymph nodes: No enlarged lymph nodes. Bones/joints: There is no acute fracture or dislocation. There are old healed bilateral rib fracture deformities. Median sternotomy suture wires are noted fixating a median sternotomy that has not healed. Soft tissues: There is severe bilateral gynecomastia. Other findings: For details regarding the abdominal and pelvic findings, refer to the CT abdomen and pelvis report on 01/12/2020. IMPRESSION: No CT evidence for acute traumatic injury in the chest. Electronically signed by: Cecilio Bunn On 01/12/2020 20:29:59 PM
--- NOTE | 2020-01-12 21:31 | REPVR ---
PROCEDURE INFORMATION: Exam: CT Right Lower Extremity Without Contrast, Knee Exam date and time: 01/12/2020 9:10 PM Age: 74 years old Clinical indication: Injury or trauma; Fall; Blunt trauma and swelling (edema); Knee; Right; Additional info: Further evaluate right knee hematoma TECHNIQUE: Imaging protocol: CT of the Right lower extremity without contrast was performed. Exam focused on the knee. Radiation optimization: All CT scans at this facility use at least one of these dose optimization techniques: automated exposure control; mA and/or kV adjustment per patient size (includes targeted exams where dose is matched to clinical indication); or iterative reconstruction. COMPARISON: CR Knee, complete RIGHT 01/12/2020 6:02 PM FINDINGS: Bones/joints: There is no fracture or dislocation of the right knee. No right knee joint effusion is noted. There are degenerative subchondral cystic changes in the patella Soft tissues: There is a large acute hematoma in the subcutaneous tissues in the anterior aspect of the right knee that measures approximately 10 cm x 4.8 cm x 15.1 cm. There is soft tissue swelling and bruising in the anterior aspect of the right knee. There are surgical clips in the subcutaneous tissues along the medial aspect of the right knee. No right popliteal cyst is present. Vasculature: There are atherosclerotic calcifications. IMPRESSION: 1. No fracture or dislocation of the right knee. 2. Large acute hematoma in the subcutaneous tissues in the anterior aspect of the right knee that measures approximately 10 cm x 4.8 cm x 15.1 cm. Electronically signed by: Cecilio Bunn On 01/12/2020 21:31:16 PM
--- NOTE | 2020-01-12 22:04 | REPVR ---
PROCEDURE INFORMATION: Exam: XR Left Tibia and Fibula Exam date and time: 01/12/2020 9:07 PM Age: 74 years old Clinical indication: Pain; Lower leg; Left; Additional info: Lle pain TECHNIQUE: Imaging protocol: XR Left tibia and fibula. Views: 2 views. COMPARISON: CR Femur 01/12/2020 6:02 PM FINDINGS: Bones/joints: There is no acute fracture or dislocation of the left tibia or fibula. There is an old healed fracture deformity of the left mid tibial diaphysis. There is also an old healed fracture deformity of the left proximal fibular diaphysis. Soft tissues: Unremarkable. Vasculature: There are atherosclerotic calcifications. IMPRESSION: No acute fracture or dislocation of the left tibia or fibula. Electronically signed by: Cecilio Bunn On 01/12/2020 22:03:33 PM
[2020-01-12] MEDS ORDERED: LIDOCAINE 2% MDV 20ML VIAL SC ONE (22:15)
--- NOTE | 2020-01-12 23:47 | HPEPDOC ---
[facility] Medical History & Physical Date of Admission Jan 13, 2020 Date of Service: Jan 13, 2020 History and Physical CHIEF COMPLAINT: Mechanical fall HISTORY OF PRESENT ILLNESS: 74M PMHx CAD s/p CABG, CHF, HLD, Afib, HTN, CKD 3, BPH, GERD, sustained a mechanical fall at home tripping on a step and falling on his right knee, hip, and head. He didn't have LOC. In the ED he started developing swelling of his right knee found to have a developing hematoma. ED spoke with Ortho who recommended surgery to drain, they spoke with Dr Wade who suggested bedside drainage. COMPOSITOR APPRENTICE taking care of him in the ED did bedside drainage with 40cc blood removed. Patient felt immediate releif afterwards. Surgery suggested pt be admitted for PT and obs overnight. Patient tells me he's feeling much better overall and not in any pain currently. Usually uses cane or walker at home. No stairs at home. PAST MEDICAL HISTORY: CAD s/p CABG, CHFpEF, HLD, Afib, HTN, CKD 3, BPH, GERD, preDM, CVA residual deficits, status post carotid endarterectomy in 1973, LOGAN not on CPAP, restless leg syndrome. PAST SURGICAL HISTORY: CABG total left hip SOCIAL HISTORY: Drinks ETOH socially Denies tobacco use Denies illicit drug use FAMILY HISTORY: Fhx CVA ALLERGIES: Please see below. REVIEW OF SYSTEMS: 10 point ROS done. ROS negative except as in HPI. HOME MEDICATIONS: Please see below. PHYSICAL EXAMINATION: Constitutional: Awake and alert, in no apparent distress, very obese ENT: Sclera are clear. Mucosa is moist. Respiratory: Lungs CTA bilaterally. No respiratory distress. No use of accessory muscles. Cardiovascular: hx of a fib but currently regular HR, no murmur Gastrointestinal: Abdomen is soft, non distended, mild tenderness near right side at site of echymosis, BS present. Musculoskeletal: No pitting edema Neurologic: No focal neurological deficit. Mental Status: A&O x3, normal affect Skin: midsternal scare, RLE knee is dressed with ice, mildly tender to palpation, right elbow bandaged no bleeding, ecchymosis R abdomen. LABORATORY DATA: See below. IMAGING: Imaging reviewed, see chart. MICROBIOLOGY: Please see below. Assessment 74M PMHx CAD s/p CABG, CHF, HLD, Afib, HTN, CKD 3, BPH, GERD, mechanical fall with large right knee hematoma. ED spoke with orthopedics who cleared patient for general surgery to drain. Dr. Aldana recommended bedside drainage via aspirate which was performed in the ED. He recommended admission for observation and PT eval tomorrow. Mechanical fall R knee hamatoma CHFpEF HTN CKD 3 A fib history of being on eliquis HLD GERD Plan We will admit the patient for observation and monitor hemoglobin overnight and development of the right knee hematoma. Recommend evaluation by physical therapy tomorrow. Continue home meds for hypertension and CHFpEF. Patient has a history of A. fib previously on eliquis, monitor knee hematoma in the morning and decide on resumption of eliquis, med rec doesn't show patient recently has taken the eliquis. Fu EKG, patient had a regular heart rate on exam. Consult with surgery if hematoma develops again. Continue dual anti-platelet therapy for history of recent stenting per patient a few months ago. Continue home dose diuresis with torsemide for CHF. Vital Signs Vital Signs Date Time Temp Pulse Resp B/P (MAP) Pulse Ox O2 Delivery O2 Flow Rate FiO2 01/12/20 22:34 19 01/12/20 17:41 97.1 75 165/72 96 Laboratory Data Labs 24H Laboratory Tests 2 01/12/20 18:18: Immature Granulocyte % (Auto) 0.4, Neutrophils (%) (Auto) 58.6, Lymphocytes (%) (Auto) 27.9, Monocytes (%) (Auto) 9.4H, Eosinophils (%) (Auto) 2.8, Basophils (%) (Auto) 0.9, Neutrophils # (Auto) 3.2, Lymphocytes # (Auto) 1.5, Monocytes # (Auto) 0.5, Eosinophils # (Auto) 0.2, Basophils # (Auto) 0.1, Nucleated Red Blood Cells % (auto) 0.0, Immature Platelet Fraction 4.8, Prothrombin Time 14.4H, Prothromb Time International Ratio 1.10, Activated Partial Thromboplast Time 30.4, Total Bilirubin 1.1H, Direct Bilirubin 0.5H, Aspartate Amino Transf (AST/SGOT) 66H, Alanine Aminotransferase (ALT/SGPT) 38, Alkaline Phosphatase 101, Total Creatine Kinase 142, Creatine Kinase MB 3.1, Creatine Kinase MB Relative Index 2.18, Troponin I 0.02, Total Protein 7.3, Albumin 3.2, Albumin/Globulin Ratio 0.8, Amylase Level 56, Lipase 337 01/12/20 18:23: POC Glucose (Misc Panel) 90, POC Sodium (Misc Panel) 142, POC Potassium (Misc Panel) 3.7, POC Chloride (Misc Panel) 100, POC Total CO2 (Misc Panel) 34.0H, POC Blood Urea Nitrogen (Misc Panel 20, POC Ionized Calcium (Misc Panel) 4.8, POC Creatinine (Misc Panel) 1.1, POC Hematocrit (Misc Panel) 47.0 CBC/BMP Laboratory Tests 01/12/20 18:18 Home Medications Scheduled Allopurinol (Zyloprim) 300 Mg Tablet, 300 MG PO DAILY Aspirin (Aspirin EC) 81 Mg Tablet.dr, 81 MG PO DAILY Clopidogrel Bisulfate (Clopidogrel) 75 Mg Tablet, 75 MG PO DAILY Ergocalciferol (Vitamin D2) (Vitamin D2) 50,000 Units Cap, 50,000 UNITS PO QWEEK tuesday Fenofibrate (Fenofibrate) 160 Mg Tab, 160 MG PO DAILY Nystatin (Nystatin Powder) 15 Gm Powder, 1 APPLIC TOP BID APPLY TO AFFCETED AREA ON RIGHT LEG Pantoprazole Sodium (Pantoprazole Sodium) 40 Mg Tablet.dr, 40 MG PO DAILY Potassium Chloride (Potassium Chloride) 10 Meq Tab, 20 MEQ PO QHS Potassium Chloride (K-Tab ER) 10 Meq Tablet.er, 10 MEQ PO QAM Pregabalin (Pregabalin) 150 Mg Capsule, 150 MG PO BID Ropinirole HCl (Ropinirole HCl) 5 Mg Tablet, 5 MG PO QHS Rosuvastatin Calcium (Rosuvastatin Calcium) 20 Mg Tablet, 20 MG PO QHS Sertraline HCl (Sertraline HCl) 100 Mg Tab, 100 MG PO DAILY Torsemide (Torsemide) 100 Mg Tab, 100 MG PO QAM Torsemide (Torsemide) 10 Mg Tablet, 40 MG PO QPM DINNERTIME Scheduled PRN Hydrocodone/Acetaminophen (Hydrocodone-Acetamin 10-325 mg) 1 Each Tablet, 1 TAB PO TIDP PRN for pain Nitroglycerin (Nitroglycerin) 0.4 Mg Sub, 0.4 MG SL NITRO PRN for CHEST PAIN Allergies Coded Allergies: No Known Allergies (Verified , 03/02/05) A-FIB/CHADSVASC A-FIB History Current/History of A-Fib/PAF?: Yes Current PO Anticoag Therapy: Yes YOUSEFDUNG MD Jan 12, 2020 23:47
[2020-01-12] MEDS ORDERED: CLOP75TA2 PO (23:58)
[2020-01-13] MEDS ORDERED: VITA50005 PO (00:02)
[2020-01-13] MEDS ORDERED: PREG150C PO (00:05)
[2020-01-13] MEDS ORDERED: MOM 30ML SUSPENSION UDC PO PRN (00:45)
[2020-01-13] MEDS: POTASSIUM CHLORIDE 10 MEQ SR TABLET PO SCH ×3 (03:33→21:08)
[2020-01-13] MEDS: ROSUVASTATIN 10 MG TAB (CRESTOR) PO SCH ×2 (03:33→21:07)
--- NOTE | 2020-01-13 05:40 | ECGEPIP ---
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
[2020-01-13 07:07] LABS: HEMATOCRIT 44.7 % (42.0-52.0); HEMOGLOBIN 13.6 g/dl (13.5-17.5); MEAN CORPUSCULAR HEMOGLOBIN 29.4 pg (27.0-33.0); MEAN CORPUSCULAR HGB CONC 30.4 g/dl (32.0-36.5); MEAN CORPUSCULAR VOLUME 96.5 fl (80.0-96.0); RED BLOOD COUNT 4.63 10^6/uL (4.30-6.10); WHITE BLOOD COUNT 6.7 10^3/uL (4.0-10.0)
[2020-01-13 07:09] LABS: PLATELET COUNT, AUTOMATED 83 10^3/uL (150-450)
[2020-01-13 07:25] LABS: BLOOD UREA NITROGEN 21 MG/DL (7-18); CARBON DIOXIDE LEVEL 29 MEQ/L (21-32); CHLORIDE LEVEL 105 MEQ/L (98-107); GLOMERULAR FILTRATION RATE > 60.0 (>42); GLUCOSE, FASTING 121 MG/DL (70-100); POTASSIUM SERUM 3.1 MEQ/L (3.5-5.1); SODIUM LEVEL 140 MEQ/L (136-145)
[2020-01-13] MEDS: allopurinoL 300 MG TAB PO SCH (09:59)
[2020-01-13] MEDS: ASPIRIN 81 MG ENTERIC TAB PO SCH (09:59)
[2020-01-13] MEDS: CLOPIDOGREL 75 MG TAB PO SCH (09:59)
[2020-01-13] MEDS: PANTOPRAZOLE 40MG TAB (PROTONIX) PO SCH (09:59)
[2020-01-13] MEDS: SERTRALINE 100 MG TAB PO SCH (09:59)
[2020-01-13] MEDS: TORSEMIDE 100 MG TAB PO SCH (10:00)
[2020-01-13] MEDS: ACETAMINOPHEN TAB 650MG DOSE (2X325MG) PO PRN ×2 (10:01→17:23)
[2020-01-13] MEDS: SPIRONOLACTONE 12.5MG PER 1/2 TABLET PO SCH (10:01)
[2020-01-13] MEDS ORDERED: POTASSIUM CHLORIDE 10 MEQ SR TABLET PO ONE (10:30)
[2020-01-13 10:37] LABS: MAGNESIUM LEVEL 2.1 MG/DL (1.8-2.4)
[2020-01-13 13:09] VITALS: BP 128/62
[2020-01-13 13:09] LABS: HEMATOCRIT 42.4 % (42.0-52.0); HEMOGLOBIN 13.3 g/dl (13.5-17.5); MEAN CORPUSCULAR HEMOGLOBIN 29.4 pg (27.0-33.0); MEAN CORPUSCULAR HGB CONC 31.4 g/dl (32.0-36.5); MEAN CORPUSCULAR VOLUME 93.6 fl (80.0-96.0); RED BLOOD COUNT 4.53 10^6/uL (4.30-6.10)
[2020-01-13 13:11] LABS: PLATELET COUNT, AUTOMATED 77 10^3/uL (150-450)
[2020-01-13] MEDS ORDERED: MORPHINE 2 MG/ML 1ML VIAL (J2270) IV ONE (14:30)
[2020-01-13] MEDS: oxyCODONE 5MG TAB PO PRN (15:39)
[2020-01-13] MEDS: TORSEMIDE 10 MG TABLET PO SCH (17:22)
[2020-01-13] MEDS: rOPINIRole 1MG TAB PO SCH (21:05)
[2020-01-13] MEDS: PERCOCET 5MG/325MG TAB PO PRN (21:07)
[2020-01-13] MEDS: NYSTATIN 100,000 UNITS/GM TOPICAL PWD 15 GM TOP SCH (21:08)
[2020-01-13 22:00] VITALS: BP 115/60
--- NOTE | 2020-01-13 23:10 | IPNPDOC ---
Subjective Date Seen The patient was seen on 01/13/20. Subjective Chief Complaint/HPI Mr. Franz is a 74 year old male with CAD s/p CABG, CHF, atrial fibrillation, and CKD here after a mechanical fall leading to right knee hematoma. Today, denies any fever/chills, chest pain, dyspnea, abdominal pain, or dysuria. Still has right knee pain Objective Physical Examination General Exam: Positive: Alert, Cooperative Eye Exam: Positive: EOMI; Negative: Sclera icteric ENT Exam: Positive: Atraumatic Neck Exam: Positive: Supple Chest Exam: Positive: Clear to auscultation Heart Exam: Positive: Rate Normal, Regular Rhythm Abdomen Exam: Positive: Normal bowel sounds, Soft; Negative: Tenderness Extremity Exam: Negative: Edema Neuro Exam: Positive: Cranial Nerves 3-12 NL Psych Exam: Positive: Mental status NL, Mood NL Assessment /Plan Assessment Mr. Franz is a 74 year old male here after having a mechanical fall. He had a right knee hematoma which was drained. Still having pain. Will re-evaluate with knee xray tomorrow Plan/VTE VTE Prophylaxis Ordered?: Yes Plan 1. Right knee hematoma 2/2 mechanical fall -Drained -Re-image tomorrow 2. CAD s/p CABG -stable, no active chest pain -Continue DAPT, statin 3. CHF -euvolemic -Continue diuretics 4. Gout -Continue allopurinol 5. RLS -Ropinirole 6. DVT ppx -SCD and TEDs VS, I&O, 24H, Fishbone Vital Signs/I&O Vital Signs Date Time Temp Pulse Resp B/P (MAP) Pulse Ox O2 Delivery O2 Flow Rate FiO2 01/13/20 22:00 96.1 74 18 115/60 (78) 99 Room Air Laboratory Data 24H LABS Laboratory Tests 2 01/13/20 00:06: Coronavirus (COVID-19)(PCR) NEGATIVE 01/13/20 06:51: Nucleated Red Blood Cells % (auto) 0.0, Anion Gap 6L, Glomerular Filtration Rate > 60.0, Calcium Level 9.0 01/13/20 12:58: Nucleated Red Blood Cells % (auto) 0.0 CBC/BMP Laboratory Tests 01/13/20 06:51 01/13/20 12:58 CARMINA DINH DO Jan 13, 2020 23:10
[2020-01-14 06:00] VITALS: BP 129/75
[2020-01-14 07:03] LABS: HEMATOCRIT 40.3 % (42.0-52.0); HEMOGLOBIN 12.8 g/dl (13.5-17.5); MEAN CORPUSCULAR HGB CONC 31.8 g/dl (32.0-36.5); MEAN CORPUSCULAR VOLUME 94.6 fl (80.0-96.0); RED BLOOD COUNT 4.26 10^6/uL (4.30-6.10); WHITE BLOOD COUNT 6.7 10^3/uL (4.0-10.0)
[2020-01-14 07:04] LABS: PLATELET COUNT, AUTOMATED 74 10^3/uL (150-450)
[2020-01-14 07:41] LABS: BLOOD UREA NITROGEN 24 MG/DL (7-18); CALCIUM LEVEL 9.5 MG/DL (8.8-10.2); CARBON DIOXIDE LEVEL 32 MEQ/L (21-32); CHLORIDE LEVEL 108 MEQ/L (98-107); CREATININE FOR GFR 1.22 MG/DL (0.70-1.30); GLOMERULAR FILTRATION RATE > 60.0 (>42); GLUCOSE, FASTING 132 MG/DL (70-100); POTASSIUM SERUM 3.8 MEQ/L (3.5-5.1); SODIUM LEVEL 144 MEQ/L (136-145)
[2020-01-14] MEDS ORDERED: FLUBLOK(EGG FREE)(QUAD)INFLUENZA VACC 0.5ML SYRINGE 18YRS & OLDER IM ONE (09:00)
[2020-01-14] MEDS ORDERED: PNEUMOCOCCAL VACCINE 0.5ML SYRINGE (PNEUMOVAX 23) IM ONE (09:00)
--- NOTE | 2020-01-14 09:06 | REP ---
INDICATION: Re-eval after drainage. COMPARISON: CT and x-ray right knee 01/12/2020 TECHNIQUE: Five views FINDINGS: The large prepatellar fluid collection, as seen best on the prior lateral x-ray view and CT scan, appears somewhat smaller but is still significant with a rounded margin superiorly in the subcutaneous fat suggesting distention of the prepatellar bursa. Subcutaneous edema is seen along the anterior aspect distal thigh through proximal tibia. There are no other changes. IMPRESSION: Somewhat smaller prepatellar fluid collection compared to 01/12/2020. <Electronically signed by Pb Bob > 01/14/20 0902
[2020-01-14] MEDS: allopurinoL 300 MG TAB PO SCH (09:42)
[2020-01-14] MEDS: SERTRALINE 100 MG TAB PO SCH (09:42)
[2020-01-14] MEDS: POTASSIUM CHLORIDE 10 MEQ SR TABLET PO SCH ×2 (09:42→20:41)
[2020-01-14] MEDS: ASPIRIN 81 MG ENTERIC TAB PO SCH (09:42)
[2020-01-14] MEDS: SPIRONOLACTONE 12.5MG PER 1/2 TABLET PO SCH (09:42)
[2020-01-14] MEDS: PANTOPRAZOLE 40MG TAB (PROTONIX) PO SCH (09:43)
[2020-01-14] MEDS: CLOPIDOGREL 75 MG TAB PO SCH (09:43)
[2020-01-14] MEDS: TORSEMIDE 100 MG TAB PO SCH (09:43)
[2020-01-14] MEDS: PERCOCET 5MG/325MG TAB PO PRN ×2 (09:43→17:46)
[2020-01-14] MEDS: NYSTATIN 100,000 UNITS/GM TOPICAL PWD 15 GM TOP SCH ×2 (09:44→20:42)
[2020-01-14 14:00] VITALS: BP 130/69
[2020-01-14] MEDS: TORSEMIDE 10 MG TABLET PO SCH (17:45)
[2020-01-14] MEDS: ROSUVASTATIN 10 MG TAB (CRESTOR) PO SCH (20:41)
[2020-01-14] MEDS: rOPINIRole 1MG TAB PO SCH (20:41)
[2020-01-14 22:00] VITALS: BP 125/54
--- NOTE | 2020-01-14 22:55 | IPNPDOC ---
Subjective Date Seen The patient was seen on 01/14/20. Subjective Chief Complaint/HPI Mr. Franz is a 74 year old male with CAD s/p CABG, CHF, atrial fibrillation, and CKD here after a mechanical fall leading to right knee hematoma. Right knee pain present, but otherwise denies fever/chills, chest pain, dyspnea, abdominal pain, or dysuria. Objective Physical Examination General Exam: Positive: Alert, Cooperative Eye Exam: Positive: EOMI; Negative: Sclera icteric ENT Exam: Positive: Atraumatic Neck Exam: Positive: Supple Chest Exam: Positive: Clear to auscultation Heart Exam: Positive: Rate Normal, Regular Rhythm Abdomen Exam: Positive: Normal bowel sounds, Soft; Negative: Tenderness Extremity Exam: Negative: Edema Neuro Exam: Positive: Cranial Nerves 3-12 NL Psych Exam: Positive: Mental status NL, Mood NL Assessment /Plan Assessment Mr. Franz is a 74 year old male here after having a mechanical fall. He had a right knee hematoma which was drained. Working on pain control. Pending results from PT Plan/VTE VTE Prophylaxis Ordered?: Yes Plan 1. Right knee hematoma 2/2 mechanical fall -Drained -Imaging demonstrates smaller prepatellar fluid collection 2. CAD s/p CABG -stable, no active chest pain -Continue DAPT, statin 3. CHF -euvolemic -Continue diuretics 4. Gout -Continue allopurinol 5. RLS -Ropinirole 6. DVT ppx -SCD and TEDs Dispo: Pending PT recommendations. Possible D/C tomorrow VS, I&O, 24H, Fishbone Vital Signs/I&O Vital Signs Date Time Temp Pulse Resp B/P (MAP) Pulse Ox O2 Delivery O2 Flow Rate FiO2 01/14/20 18:16 16 01/14/20 14:00 98.0 69 130/69 (89) 92 Room Air I&O- Last 24 Hours up to 6 AM 01/14/20 06:00 Intake Total 1255 ml Output Total 950 ml Balance 305 ml Laboratory Data 24H LABS Laboratory Tests 2 01/14/20 06:47: Nucleated Red Blood Cells % (auto) 0.0, Immature Platelet Fraction 3.6, Anion Gap 4L, Glomerular Filtration Rate > 60.0, Calcium Level 9.5 CBC/BMP Laboratory Tests 01/14/20 06:47 CARMINA DINH DO Jan 14, 2020 22:55
[2020-01-15 06:00] VITALS: BP 123/72
[2020-01-15 07:00] LABS: HEMATOCRIT 38.8 % (42.0-52.0); HEMOGLOBIN 12.2 g/dl (13.5-17.5); MEAN CORPUSCULAR HEMOGLOBIN 29.8 pg (27.0-33.0); MEAN CORPUSCULAR HGB CONC 31.4 g/dl (32.0-36.5); MEAN CORPUSCULAR VOLUME 94.6 fl (80.0-96.0)
[2020-01-15 07:03] LABS: PLATELET COUNT, AUTOMATED 70 10^3/uL (150-450)
[2020-01-15] MEDS: SERTRALINE 100 MG TAB PO SCH (09:29)
[2020-01-15] MEDS: ASPIRIN 81 MG ENTERIC TAB PO SCH (09:29)
[2020-01-15] MEDS: PANTOPRAZOLE 40MG TAB (PROTONIX) PO SCH (09:29)
[2020-01-15] MEDS: CLOPIDOGREL 75 MG TAB PO SCH (09:29)
[2020-01-15] MEDS: SPIRONOLACTONE 12.5MG PER 1/2 TABLET PO SCH (09:29)
[2020-01-15] MEDS: TORSEMIDE 100 MG TAB PO SCH (09:29)
[2020-01-15] MEDS: allopurinoL 300 MG TAB PO SCH (09:29)
[2020-01-15] MEDS: POTASSIUM CHLORIDE 10 MEQ SR TABLET PO SCH ×2 (09:30→20:42)
[2020-01-15] MEDS: NYSTATIN 100,000 UNITS/GM TOPICAL PWD 15 GM TOP SCH ×2 (09:30→20:42)
[2020-01-15] MEDS: PERCOCET 5MG/325MG TAB PO PRN (10:58)
[2020-01-15 14:00] VITALS: BP 129/89
--- NOTE | 2020-01-15 16:45 | IPNPDOC ---
Subjective Date Seen The patient was seen on 01/15/20. Subjective Chief Complaint/HPI Mr. Franz is a 74 year old male with CAD s/p CABG, CHF, atrial fibrillation, and CKD here after a mechanical fall leading to right knee hematoma. Denies fever/chills, chest pain, dyspnea, abdominal pain, or dysuria. He worked with PT today, will need one more day before home Objective Physical Examination General Exam: Positive: Alert, Cooperative Eye Exam: Positive: EOMI; Negative: Sclera icteric ENT Exam: Positive: Atraumatic Neck Exam: Positive: Supple Chest Exam: Positive: Clear to auscultation Heart Exam: Positive: Rate Normal, Regular Rhythm Abdomen Exam: Positive: Normal bowel sounds, Soft; Negative: Tenderness Extremity Exam: Negative: Edema Neuro Exam: Positive: Cranial Nerves 3-12 NL Psych Exam: Positive: Mental status NL, Mood NL Assessment /Plan Assessment Mr. Franz is a 74 year old male here after having a mechanical fall. He had a r ight knee hematoma which was drained. Working on pain control. Pending results from PT Plan/VTE VTE Prophylaxis Ordered?: Yes Plan 1. Right knee hematoma 2/2 mechanical fall -Drained -Imaging demonstrates smaller prepatellar fluid collection 2. CAD s/p CABG -stable, no active chest pain -Continue DAPT, statin 3. CHF -euvolemic -Continue diuretics 4. Gout -Continue allopurinol 5. RLS -Ropinirole 6. DVT ppx -SCD and TEDs Dispo: Pending PT recommendations. Possible D/C tomorrow VS, I&O, 24H[facility] Vital Signs/I&O Vital Signs Date Time Temp Pulse Resp B/P (MAP) Pulse Ox O2 Delivery O2 Flow Rate FiO2 01/15/20 14:00 98.5 76 18 129/89 (102) 96 Room Air I&O- Last 24 Hours up to 6 AM 01/15/20 06:00 Intake Total 1200 ml Output Total 1825 ml Balance -625 ml Laboratory Data 24H LABS Laboratory Tests 2 01/15/20 06:09: Nucleated Red Blood Cells % (auto) 0.0 CBC/BMP Laboratory Tests 01/15/20 06:09 CARMINA DINH DO Jan 15, 2020 16:45
[2020-01-15] MEDS: TORSEMIDE 10 MG TABLET PO SCH (17:43)
[2020-01-15] MEDS: rOPINIRole 1MG TAB PO SCH (20:41)
[2020-01-15] MEDS: ROSUVASTATIN 10 MG TAB (CRESTOR) PO SCH (20:41)
[2020-01-15 22:00] VITALS: BP_SYST 130; BP_DIAS 0; BP_DIAS 70
[2020-01-16 06:00] VITALS: BP 126/69
[2020-01-16] MEDS ORDERED: NYST10006 TOP (09:53)
[2020-01-16] MEDS: NYSTATIN 100,000 UNITS/GM TOPICAL PWD 15 GM TOP SCH (11:17)
[2020-01-16] MEDS: POTASSIUM CHLORIDE 10 MEQ SR TABLET PO SCH (11:17)
[2020-01-16] MEDS: SERTRALINE 100 MG TAB PO SCH (11:17)
[2020-01-16] MEDS: SPIRONOLACTONE 12.5MG PER 1/2 TABLET PO SCH (11:17)
[2020-01-16] MEDS: CLOPIDOGREL 75 MG TAB PO SCH (11:17)
[2020-01-16] MEDS: PANTOPRAZOLE 40MG TAB (PROTONIX) PO SCH (11:17)
[2020-01-16] MEDS: allopurinoL 300 MG TAB PO SCH (11:17)
[2020-01-16] MEDS: ASPIRIN 81 MG ENTERIC TAB PO SCH (11:17)
[2020-01-16] MEDS: ACETAMINOPHEN TAB 650MG DOSE (2X325MG) PO PRN (11:25)
[2020-01-16] MEDS: oxyCODONE 5MG TAB PO PRN (11:26)
[2020-01-16] MEDS: TORSEMIDE 100 MG TAB PO SCH (12:08)
--- NOTE | 2020-01-16 23:23 | DS.PDOC ---
Discharge Summary General Date of Admission Jan 12, 2020 at 23:46 Date of Discharge Jan 16, 2020 Attending Physician: CARMINA IDNH DO Discharge Summary PROCEDURES PERFORMED DURING STAY: Bedside drainage of hematoma ADMITTING DIAGNOSES: 1. R knee hematoma 2. HFpEF 3. HTN 4. CKD 3 5. A fib 6. HLD 7. GERD DISCHARGE DIAGNOSES: 1. R knee hematoma 2. HFpEF 3. HTN 4. CKD 3 5. A fib 6. HLD 7. GERD 8. Gout 9. Restless leg syndrome COMPLICATIONS/CHIEF COMPLAINT: Fall With Injury, Hematoma Of Right Region. HISTORY OF PRESENT ILLNESS: Mr. Franz is a 74 year old male with CAD s/p CABG, CHF, HLD, afib and CKD stage 2 here after a mechanical fall leading to right knee hematoma. He triped over a step and fell on his right knee, hip, and head. Denies LOC. ED spoke with orthopedic surgery who recommended general surgery to drain. General surgery recommended bedside drainage. [employer] HEL[employer] at bedside drianed 40cc of blood. General surgery recommended that patient be admitted for PT and obs overnight. HOSPITAL COURSE: The following day, patient reported knee pain and XR knee was repeated. Demonstrated a smaller prepatellar fluid collection. Otherwise patient worked with physical therapy. After 3 days, patient was cleared for home. Today, patient felt well. Denies any fever, chest pain, dyspnea, abdominal pain, or dysuria. Patient was subsequently discharged home. DISCHARGE MEDICATIONS: Please see below. ALLERGIES: Please see below. PHYSICAL EXAMINATION ON DISCHARGE: VITAL SIGNS: Please see below. GENERAL: Comfortable, in no apparent distress HEENT: Head normocephalic/atraumatic, EOMI, sclera clear NECK: Supple CARDIOVASCULAR EXAMINATION: Regular rate and rhythm RESPIRATORY EXAMINATION: Clear to auscultation bilaterally ABDOMINAL EXAMINATION: Soft, non-tender, normal bowel sounds EXTREMITIES: Mild pitting edema SKIN: Right knee hematoma NEUROLOGICAL EXAMINATION: CN 3-12 grossly intact PSYCHIATRIC EXAMINATION: Normal mood and affect LABORATORY DATA: Please see below. IMAGING: XR knee (Initial) There is very prominent prepatellar soft tissue bursitis with adjacent soft tissue edema. No joint effusion or visible fracture. XR knee (subsequent) Somewhat smaller prepatellar fluid collection compared to 01/12/2020. PROGNOSIS: Good ACTIVITY: Walk with walker DIET: Low fat, low cholesterol diet DISCHARGE PLAN: Home DISPOSITION: 01 Home, Self-Care. DISCHARGE INSTRUCTIONS: 1. Follow up with your PCP within 5 days DISCHARGE CONDITION: Stable TIME SPENT ON DISCHARGE: Total time spent on discharge planning, discharge summary, and medication reconciliation: 35 minutes Vital Signs/I&Os Vital Signs Date Time Temp Pulse Resp B/P (MAP) Pulse Ox O2 Delivery O2 Flow Rate FiO2 01/16/20 11:56 20 01/16/20 06:00 98.0 75 126/69 (88) 95 01/15/20 14:00 Room Air I&O- Last 24 Hours up to 6 AM 01/16/20 06:00 Intake Total 1680 ml Output Total 1525 ml Balance 155 ml Discharge Medications Scheduled Allopurinol (Zyloprim) 300 Mg Tablet, 300 MG PO DAILY, (Reported) Aspirin (Aspirin EC) 81 Mg Tablet.dr, 81 MG PO DAILY, (Reported) Clopidogrel Bisulfate (Clopidogrel) 75 Mg Tablet, 75 MG PO DAILY, (Reported) Ergocalciferol (Vitamin D2) (Vitamin D2) 50,000 Units Cap, 50,000 UNITS PO QWEEK, (Reported) tuesday Fenofibrate (Fenofibrate) 160 Mg Tab, 160 MG PO DAILY, (Reported) Nystatin (Nystop) 60 Gm Powder, 1 DOSE TOP BID Pantoprazole Sodium (Pantoprazole Sodium) 40 Mg Tablet.dr, 40 MG PO DAILY, (Reported) Potassium Chloride (Potassium Chloride) 10 Meq Tab, 20 MEQ PO QHS, (Reported) Potassium Chloride (K-Tab ER) 10 Meq Tablet.er, 10 MEQ PO QAM, (Reported) Pregabalin (Pregabalin) 150 Mg Capsule, 150 MG PO QHS, (Reported) Ropinirole HCl (Ropinirole HCl) 5 Mg Tablet, 5 MG PO QHS, (Reported) Rosuvastatin Calcium (Rosuvastatin Calcium) 20 Mg Tablet, 20 MG PO QHS, (Reported) Sertraline HCl (Sertraline HCl) 100 Mg Tab, 100 MG PO DAILY, (Reported) Spironolactone (Spironolactone) 25 Mg Tab, 12.5 MG PO DAILY, (Reported) Torsemide (Torsemide) 100 Mg Tab, 100 MG PO QAM, (Reported) Torsemide (Torsemide) 10 Mg Tablet, 10 MG PO QPM, (Reported) DINNERTIME Scheduled PRN Hydrocodone/Acetaminophen (Hydrocodone-Acetamin 10-325 mg) 1 Each Tablet, 1 TAB PO TIDP PRN for pain, (Reported) Nitroglycerin (Nitroglycerin) 0.4 Mg Sub, 0.4 MG SL NITRO PRN for CHEST PAIN, (Reported) Allergies Coded Allergies: No Known Allergies (Verified , 03/02/05) CARMINA DINH DO Jan 16, 2020 23:23
== END 2020-01-16 13:35 | disposition home or self-care (01) ==
LOC: M ED 17:29 → M ED INP 23:46 → M MSPAV 01-13 13:26
PROVIDERS: ADMIT Family Medicine; ATTEND Internal Medicine
DX: S80.01XA Contusion of right knee, initial encounter (principal); W19.XXXA Unspecified fall, initial encounter; Y92.89 Other specified places as the place of occurrence of the external cause; Y93.9 Activity, unspecified; Y99.9 Unspecified external cause status; I50.9 Heart failure, unspecified; I11.0 Hypertensive heart disease with heart failure; N18.30 Chronic kidney disease, stage 3 unspecified; I48.91 Unspecified atrial fibrillation; E78.49 Other hyperlipidemia; K21.9 Gastro-esophageal reflux disease without esophagitis; M10.9 Gout, unspecified; G25.81 Restless legs syndrome; I25.10 Atherosclerotic heart disease of native coronary artery without angina pectoris; Z98.61 Coronary angioplasty status; Z79.82 Long term (current) use of aspirin; Z79.02 Long term (current) use of antithrombotics/antiplatelets; Z79.899 Other long term (current) drug therapy; Z95.1 Presence of aortocoronary bypass graft
CPT/HCPCS: 36415; 70450; 71260; 72125; 72128; 72131; 73552; 73564; 73590; 73700; 74177; 80047; 80048; 80076; 82150; 82550; 82553; 83690; 83735; 84484; 85025; 85027; 85049; 85055; 85610; 85730; 86850; 86870; 86900; 86901; 90471; 90715; 93005; 93041; 94760; 96374; 96376; 97116; 97161; 97165; 97530; 99285; G0378; J2270; Q9967; U0002

== ENCOUNTER 2020-01-19 14:53 | Inpatient (IN) | payer MEDICARE, BC ==
[~2020-01-19] VITALS: Ht 182.9 cm; Wt 110.0 kg
[~2020-01-19 14:53] MED LIST changes: +CLOP75TA2 PO; +NYST10006 TOP; +PREG150C PO; +VITA50005 PO
[2020-01-19 15:36] LABS: BASO # 0.1 10^3/uL (0.0-0.2); BASO % 1.1 % (0.0-1.0); EOS # 0.2 10^3/uL (0.0-0.5); EOS % 2.8 % (0.0-3.0); HEMATOCRIT 40.1 % (42.0-52.0); HEMOGLOBIN 12.9 g/dl (13.5-17.5); LYMPH # 1.8 10^3/uL (1.5-5.0); LYMPH % 27.8 % (24.0-44.0); MEAN CORPUSCULAR HEMOGLOBIN 29.8 pg (27.0-33.0); MEAN CORPUSCULAR HGB CONC 32.2 g/dl (32.0-36.5); MEAN CORPUSCULAR VOLUME 92.6 fl (80.0-96.0); MONO # 0.7 10^3/uL (0.0-0.8); MONO % 11.2 % (0.0-5.0); NEUTROPHILS # 3.7 10^3/uL (1.5-8.5); NEUTROPHILS % 56.8 % (36.0-66.0); RED BLOOD COUNT 4.33 10^6/uL (4.30-6.10); WHITE BLOOD COUNT 6.5 10^3/uL (4.0-10.0)
[2020-01-19 15:42] LABS: PLATELET COUNT, AUTOMATED 92 10^3/uL (150-450)
[2020-01-19] MEDS ORDERED: NORCO, ANEXSIA 5/325MG TABLET (HYDROcodone/ACETAMINOPHEN) PO ONE (15:45)
[2020-01-19] MEDS ORDERED: NS 500 ML IV ONE (15:45)
--- NOTE | 2020-01-19 15:46 | REP ---
INDICATION: right knee pain COMPARISON: Comparison 01/14/2020 TECHNIQUE: AP and lateral views only FINDINGS: There is significant suprapatellar soft tissue fullness which has actually increased from the prior exam. Two limited views show no significant change in appearance of the osseous structures. IMPRESSION: Findings as described above, likely a suprapatellar bursal effusion. <Electronically signed by Ankit Marrero > 01/19/20 [id number]
[2020-01-19 15:50] LABS: INR 0.98; PROTHROMBIN TIME 13.2 SECONDS (12.5-14.3)
[2020-01-19 16:20] LABS: ALBUMIN 3.5 GM/DL (3.2-5.2); BILIRUBIN,DIRECT 0.6 MG/DL (0.0-0.2); BILIRUBIN,TOTAL 2.7 MG/DL (0.2-1.0)
[2020-01-19 16:45] LABS: PARTIAL THROMBOPLASTIN TIME 32.6 SECONDS (24.2-38.5)
[2020-01-19] MEDS ORDERED: ISOVUE-370 76% 100ML VIAL As Ordered ONE (17:36)
--- NOTE | 2020-01-19 18:28 | REPVR ---
PROCEDURE INFORMATION: Exam: CTA Angiogram of the Abdominal Aorta and Bilateral Lower Extremities (Run-off) With IV Contrast Exam date and time: 01/19/2020 5:47 PM Age: 74 years old Clinical indication: Injury or trauma; Fall; Blunt trauma and swelling; Other: Knee area; Additional info: Recent fall; Worsening pain and bruising/swelling to rle TECHNIQUE: Imaging protocol: CT angiogram of the abdominal aorta, pelvis and bilateral lower extremities with IV iodinated contrast. 3D rendering (Not supervised by radiologist): MIP and/or 3D reconstructed images were created by the technologist. Radiation optimization: All CT scans at this facility use at least one of these dose optimization techniques: automated exposure control; mA and/or kV adjustment per patient size (includes targeted exams where dose is matched to clinical indication); or iterative reconstruction. Contrast material: ISOVUE 370; Contrast volume: 100 ml; Contrast route: INTRAVENOUS (IV); COMPARISON: CT-Knee WITHOUT CONTRAST RIGHT 01/12/2020 8:55 PM FINDINGS: Aorta: Mild atherosclerotic changes the abdominal aorta without evidence of an aneurysm or stenosis. Mild atherosclerotic changes at the origin of the superior mesenteric artery resulting in a mild stenosis without poststenotic dilatation. Celiac trunk and mesenteric arteries: No occlusion or significant stenosis. Renal arteries: Atherosclerotic changes at the origin of both renal arteries without significant stenosis or poststenotic dilatation. Right iliac arteries: The mild atherosclerotic changes in the right iliac arteries without evidence of aneurysm or stenosis. Right femoral/popliteal arteries: Mild atherosclerotic changes in the right common femoral artery. Minimal atherosclerotic changes in the right superficial femoral artery without evidence of a significant stenosis. Proximal right popliteal artery unremarkable. Mid and distal segments not well visualized due to patient motion. Right infrapopliteal arteries: Right infrapopliteal arteries demonstrate three-vessel runoff. Left iliac arteries: Mild atherosclerotic changes in the left iliac arteries without stenosis or aneurysm. Left femoral/popliteal arteries: Mild atherosclerotic changes in the left common femoral artery. Mild atherosclerotic changes in the left superficial femoral artery without significant stenosis. Mild atherosclerotic changes in the left popliteal artery without significant stenosis. Left infrapopliteal arteries: Left infrapopliteal arteries demonstrate three-vessel runoff. Lungs: Bibasilar atelectasis. Liver: Examination of the liver demonstrates a lobular surface contour, and enlargement of the left and caudate lobes, findings consistent with cirrhosis. Gallbladder and bile ducts: Cholelithiasis and hydropic gallbladder. Pancreas: There is diffuse pancreatic atrophy. Spleen: There is mild splenomegaly with a maximum span of 14.5 centimeters. No focal abnormalities demonstrated. Adrenals: Normal. No mass. Kidneys and ureters: Nonobstructive calculus lower pole left kidney. Stomach and bowel: Unremarkable. No obstruction. No mucosal thickening. Appendix: No evidence of appendicitis. Bladder: Unremarkable. No mass. Reproductive: Unremarkable as visualized. Intraperitoneal space: Unremarkable. No free air. No significant fluid collection. Lymph nodes: No lymphadenopathy. Bones/joints: Mild anterolisthesis of L4 on L5. Age indeterminate compression deformity of L3. Moderate to severe central spinal stenosis L2-L3, L3-L4, and severe central spinal stenosis at L4-L5 Osteoporosis. Status post total hip replacement on the left. Soft tissues: Subcutaneous edema in the right leg extending from the mid thigh region to the calf and foot. Otherwise unremarkable. IMPRESSION: 1. Mild atherosclerotic changes in the abdominal aorta, iliac arteries, common femoral, superficial femoral, and left popliteal arteries without significant stenosis or aneurysm. Proximal right popliteal artery unremarkable although the mid and distal segments or obscured by patient motion. There is three-vessel runoff to both lower legs. 2. Examination of the liver demonstrates a lobular surface contour, and enlargement of the left and caudate lobes, findings consistent with cirrhosis. 3. There is mild splenomegaly with a maximum span of 14.5 centimeters. No focal abnormalities demonstrated. 4. Cholelithiasis and hydropic gallbladder. 5. There is diffuse pancreatic atrophy. Electronically signed by: Von Olvera On 01/19/2020 18:28:17 PM
[2020-01-19] MEDS ORDERED: NYST1POW9 TOP (18:59)
[2020-01-19 21:10] VITALS: BP 135/55
[2020-01-19] MEDS: rOPINIRole 1MG TAB PO SCH (21:39)
[2020-01-19] MEDS: POTASSIUM CHLORIDE 10 MEQ SR TABLET PO SCH (21:39)
[2020-01-19] MEDS: PREGABALIN 75 MG CAP(LYRICA) PO SCH (21:40)
[2020-01-19] MEDS: ANEXSIA, NORCO 7.5MG/325MG TABLET(HYDROCODONE/APAP) PO SCH (21:40)
[2020-01-19] MEDS: ROSUVASTATIN 10 MG TAB (CRESTOR) PO SCH (21:40)
[2020-01-19] MEDS: TORSEMIDE 20 MG TAB PO SCH (21:42)
[2020-01-20 06:00] VITALS: BP 112/73
[2020-01-20 06:56] LABS: HEMATOCRIT 36.8 % (42.0-52.0); HEMOGLOBIN 11.7 g/dl (13.5-17.5); MEAN CORPUSCULAR HEMOGLOBIN 30.2 pg (27.0-33.0); MEAN CORPUSCULAR HGB CONC 31.8 g/dl (32.0-36.5); MEAN CORPUSCULAR VOLUME 95.1 fl (80.0-96.0); PLATELET COUNT, AUTOMATED 110 10^3/uL (150-450); RED BLOOD COUNT 3.87 10^6/uL (4.30-6.10)
[2020-01-20 07:35] LABS: BLOOD UREA NITROGEN 23 MG/DL (7-18); CALCIUM LEVEL 8.8 MG/DL (8.8-10.2); CARBON DIOXIDE LEVEL 23 MEQ/L (21-32); CHLORIDE LEVEL 109 MEQ/L (98-107); CREATININE FOR GFR 0.96 MG/DL (0.70-1.30); GLOMERULAR FILTRATION RATE > 60.0 (>42); GLUCOSE, FASTING 115 MG/DL (70-100); POTASSIUM SERUM 4.4 MEQ/L (3.5-5.1); SODIUM LEVEL 142 MEQ/L (136-145)
[2020-01-20] MEDS: ASPIRIN 81 MG ENTERIC TAB PO SCH (09:03)
[2020-01-20] MEDS: SERTRALINE 100 MG TAB PO SCH (09:03)
[2020-01-20] MEDS: allopurinoL 300 MG TAB PO SCH (09:03)
[2020-01-20] MEDS: PANTOPRAZOLE 40MG TAB (PROTONIX) PO SCH (09:03)
[2020-01-20] MEDS: ANEXSIA, NORCO 7.5MG/325MG TABLET(HYDROCODONE/APAP) PO SCH ×2 (09:03→15:12)
[2020-01-20] MEDS: TORSEMIDE 100 MG TAB PO SCH (09:03)
[2020-01-20] MEDS: CLOPIDOGREL 75 MG TAB PO SCH (09:04)
[2020-01-20] MEDS: POTASSIUM CHLORIDE 10 MEQ SR TABLET PO SCH ×2 (09:04→20:42)
[2020-01-20] MEDS: PREGABALIN 75 MG CAP(LYRICA) PO SCH ×2 (09:04→20:42)
[2020-01-20] MEDS: FENOFIBRATE 145 MG TAB (TRICOR) PO SCH (09:04)
[2020-01-20 14:00] VITALS: BP 120/80
--- NOTE | 2020-01-20 15:36 | IPNPDOC ---
Text Note Date of Service The patient was seen on 01/20/20. NOTE Subjective: Complains of right knee pain and inability to bear weight and walk. Easilty falling asleep. Has LOGAN PHYSICAL EXAMINATION: VITALS: As below Constitutional: Awake and alert, in no apparent distress, very obese ENT: Sclera are clear. Mucosa is moist. Respiratory: Lungs CTA bilaterally. No respiratory distress. No use of accessory muscles. Cardiovascular: hx of a fib but currently regular HR, no murmur Gastrointestinal: Abdomen is soft, non distended, mild tenderness near right side at site of echymosis, BS present. Musculoskeletal: No pitting edema Neurologic: No focal neurological deficit. Mental Status: A&O x3, normal affect Skin: Bruising all around the right knee , right thigh , right leg and calf, there is a blood filled blister on the right knee. Labs and radiology: reviewed Assessment and Plan: 4M PMHx CAD s/p CABG, CHF, HLD, Afib, HTN, CKD 3, BPH, GERD, sustained a mechanical fall at home tripping on a step and falling on his right knee, hip, and head on 01/12/20 and was admitted here till 01/16/20 for swelling of his right knee found to have a developing hematoma. Patient had bedside drainage at the ED with 40cc blood removal. Patient felt immediate relief afterwards. Right Supra patellar Bursitis with blood filled blister. pain control with noralfreda haney Cirrhosis of Liver as by CT with mild splenomegaly Thrombocytopenia noted in 2 admissions in Jan 2020 CAD s/p CABG, ASA, Plavix and statin CHFpEF, torsemide HLD statin, fenofibrate Afib ASA, plavix. not on AC due to h/o internal bleeding as reported by patient. HTN torsemide, CKD 3, BPH, GERD, ppi GOUT Allopurinol Depression sertraline CVA residual deficits, PAD status post carotid endarterectomy in 1973, LOGAN not on CPAP, LOGAN monitor. restless leg syndrome. ropinirole Lumber spinal stenosis moderate to severe at L2- L5 L3 vertebral chronic compression # Cholelithiasis with hydropic gall bladder VS,Fishbone, I+O VS, Fishbone, I+O Laboratory Tests 01/19/20 15:24 01/20/20 06:37 Vital Signs Date Time Temp Pulse Resp B/P (MAP) Pulse Ox O2 Delivery O2 Flow Rate FiO2 01/20/20 06:00 98.2 77 16 112/73 (86) 94 Room Air I&O- Last 24 Hours up to 6 AM 01/20/20 06:00 Intake Total 500 ml Output Total 150 ml Balance 350 ml SHAY MANN MD Jan 20, 2020 08:25
[2020-01-20] MEDS ORDERED: traMADol 50 MG TAB PO PRN (16:00)
[2020-01-20] MEDS: TORSEMIDE 20 MG TAB PO SCH (17:17)
[2020-01-20] MEDS: rOPINIRole 1MG TAB PO SCH (20:41)
[2020-01-20] MEDS: ROSUVASTATIN 10 MG TAB (CRESTOR) PO SCH (20:42)
[2020-01-20 22:00] VITALS: BP 122/65
[2020-01-21 06:00] VITALS: BP 131/69
[2020-01-21 06:08] LABS: HEMATOCRIT 35.5 % (42.0-52.0); HEMOGLOBIN 11.6 g/dl (13.5-17.5); MEAN CORPUSCULAR HEMOGLOBIN 31.2 pg (27.0-33.0); MEAN CORPUSCULAR HGB CONC 32.7 g/dl (32.0-36.5); MEAN CORPUSCULAR VOLUME 95.4 fl (80.0-96.0); PLATELET COUNT, AUTOMATED 102 10^3/uL (150-450); RED BLOOD COUNT 3.72 10^6/uL (4.30-6.10); WHITE BLOOD COUNT 6.6 10^3/uL (4.0-10.0)
[2020-01-21 06:30] LABS: BLOOD UREA NITROGEN 22 MG/DL (7-18); CALCIUM LEVEL 8.4 MG/DL (8.8-10.2); CARBON DIOXIDE LEVEL 30 MEQ/L (21-32); CHLORIDE LEVEL 106 MEQ/L (98-107); CREATININE FOR GFR 1.03 MG/DL (0.70-1.30); GLOMERULAR FILTRATION RATE > 60.0 (>42); GLUCOSE, FASTING 136 MG/DL (70-100); POTASSIUM SERUM 3.6 MEQ/L (3.5-5.1); SODIUM LEVEL 141 MEQ/L (136-145)
[2020-01-21] MEDS: SENOKOT S TAB PO SCH ×2 (09:00→20:09)
[2020-01-21] MEDS: SERTRALINE 100 MG TAB PO SCH (09:44)
[2020-01-21] MEDS: FENOFIBRATE 145 MG TAB (TRICOR) PO SCH (09:44)
[2020-01-21] MEDS: TORSEMIDE 100 MG TAB PO SCH (09:44)
[2020-01-21] MEDS: PREGABALIN 75 MG CAP(LYRICA) PO SCH ×2 (09:44→20:08)
[2020-01-21] MEDS: ASPIRIN 81 MG ENTERIC TAB PO SCH (09:44)
[2020-01-21] MEDS: PANTOPRAZOLE 40MG TAB (PROTONIX) PO SCH (09:44)
[2020-01-21] MEDS: CLOPIDOGREL 75 MG TAB PO SCH (09:45)
[2020-01-21] MEDS: POTASSIUM CHLORIDE 10 MEQ SR TABLET PO SCH ×2 (09:45→20:09)
[2020-01-21] MEDS: allopurinoL 300 MG TAB PO SCH (09:45)
--- NOTE | 2020-01-21 11:29 | IPNPDOC ---
Text Note Date of Service The patient was seen on 01/21/20. NOTE Subjective: Complains of right knee pain better controlled today. Has worked with PT. PHYSICAL EXAMINATION: VITALS: As below Constitutional: Awake and alert, in no apparent distress, very obese ENT: Sclera are clear. Mucosa is moist. Respiratory: Lungs CTA bilaterally. No respiratory distress. No use of accessory muscles. Cardiovascular: hx of a fib but currently regular HR, no murmur/ no rub/ or gallop Gastrointestinal: Abdomen is soft, non distended, mild tenderness near right side at site of echymosis, BS present. Musculoskeletal: No pitting edema Neurologic: No focal neurological deficit. Mental Status: A&O x3, normal affect Skin: Bruising all around the right knee , right thigh , right leg and calf, there is a blood filled large blister 8 cm x 6cm on the right knee. Labs and radiology: reviewed Assessment and Plan: 4M PMHx CAD s/p CABG, CHF, HLD, Afib, HTN, CKD 3, BPH, GERD, sustained a mechanical fall at home tripping on a step and falling on his right knee, hip, and head on 01/12/20 and was admitted here till 01/16/20 for swelling of his right knee found to have a developing hematoma. Patient had bedside drainage at the ED with 40cc blood removal. Patient felt immediate relief afterwards. Right Supra patellar Bursitis with blood filled blister. pain control with tramadol, lyrica Cirrhosis of Liver as by CT with mild splenomegaly Thrombocytopenia noted in 2 admissions in Jan 2020 this may have made him bruise to much. CAD s/p CABG, ASA, Plavix and statin CHFpEF, torsemide HLD statin, fenofibrate Afib ASA, plavix. not on AC due to h/o internal bleeding as reported by patient. HTN torsemide, CKD 3 stable BPH has gaffney now GERD, ppi GOUT Allopurinol Depression sertraline CVA residual deficits, PAD status post carotid endarterectomy in 1973, LOGAN not on CPAP, LOGAN monitor. restless leg syndrome. ropinirole Lumber spinal stenosis moderate to severe at L2- L5 L3 vertebral chronic compression # Cholelithiasis with hydropic gall bladder VS,Fishbone, I+O VS, Fishbone, I+O Laboratory Tests 01/21/20 05:52 Vital Signs Date Time Temp Pulse Resp B/P (MAP) Pulse Ox O2 Delivery O2 Flow Rate FiO2 01/21/20 06:00 98.0 83 18 131/69 (89) 96 Room Air I&O- Last 24 Hours up to 6 AM 01/21/20 05:59 Intake Total 2280 ml Output Total 825 ml Balance 1455 ml SHAY MANN MD Jan 21, 2020 11:29
[2020-01-21 14:00] VITALS: BP 127/65
[2020-01-21] MEDS: TORSEMIDE 20 MG TAB PO SCH (17:32)
[2020-01-21] MEDS: ROSUVASTATIN 10 MG TAB (CRESTOR) PO SCH (20:08)
[2020-01-21] MEDS: rOPINIRole 1MG TAB PO SCH (20:09)
[2020-01-21 22:00] VITALS: BP 125/65
[2020-01-22 06:00] VITALS: BP 150/74
[2020-01-22 06:46] LABS: HEMATOCRIT 36.3 % (42.0-52.0); HEMOGLOBIN 11.8 g/dl (13.5-17.5); MEAN CORPUSCULAR HGB CONC 32.5 g/dl (32.0-36.5); MEAN CORPUSCULAR VOLUME 95.3 fl (80.0-96.0); PLATELET COUNT, AUTOMATED 103 10^3/uL (150-450); RED BLOOD COUNT 3.81 10^6/uL (4.30-6.10); WHITE BLOOD COUNT 6.6 10^3/uL (4.0-10.0)
[2020-01-22] MEDS: SERTRALINE 100 MG TAB PO SCH (08:53)
[2020-01-22] MEDS: SENOKOT S TAB PO SCH (08:53)
[2020-01-22] MEDS: ASPIRIN 81 MG ENTERIC TAB PO SCH (08:53)
[2020-01-22] MEDS: CLOPIDOGREL 75 MG TAB PO SCH (08:53)
[2020-01-22] MEDS: PREGABALIN 75 MG CAP(LYRICA) PO SCH (08:53)
[2020-01-22] MEDS: PANTOPRAZOLE 40MG TAB (PROTONIX) PO SCH (08:54)
[2020-01-22] MEDS: FENOFIBRATE 145 MG TAB (TRICOR) PO SCH (08:54)
[2020-01-22] MEDS: allopurinoL 300 MG TAB PO SCH (08:54)
[2020-01-22] MEDS: POTASSIUM CHLORIDE 10 MEQ SR TABLET PO SCH (08:54)
[2020-01-22] MEDS: TORSEMIDE 100 MG TAB PO SCH (08:54)
--- NOTE | 2020-01-22 12:17 | IPNPDOC ---
Text Note Date of Service The patient was seen on 01/22/20. NOTE Subjective: Complains of right knee pain better controlled today. Has been w orking with PT but his mobility has been inconsistent. Some times he would be able to get out of bed other time he cant. He is very easily fatigued. He does better mobility tom in the morning then he is unable to do much later in the day. PHYSICAL EXAMINATION: VITALS: As below Constitutional: Awake and alert, in no apparent distress, very obese ENT: Sclera are clear. Mucosa is moist. Respiratory: Lungs CTA bilaterally. No respiratory distress. No use of accessory muscles. Cardiovascular: hx of a fib but currently regular HR, no murmur/ no rub/ or gallop Gastrointestinal: Abdomen is soft, non distended, mild tenderness near right side at site of echymosis, BS present. Musculoskeletal: No pitting edema Neurologic: No focal neurological deficit. Mental Status: A&O x3, normal affect Skin: Bruising all around the right knee , right thigh , right leg and calf, there is a blood filled large blister 8 cm x 6cm on the right knee. Labs and radiology: reviewed Assessment and Plan: 74 M PMHx CAD s/p CABG, CHF, HLD, Afib, HTN, CKD 3, BPH, GERD, sustained a mechanical fall at home tripping on a step and falling on his right knee, hip, and head on 01/12/20 and was admitted here till 01/16/20 for swelling of his right knee found to have a developing hematoma. Patient had bedside drainage at the ED with 40cc blood removal. Patient felt immediate relief afterwards. Patient came back this admission due to severe persistent pain in the right knee, inability to ambulate at home leading to urinary incontinence several times in bed as he could not get out of bed. Patient only has an elderly at home who is unable to help mobilize him. Here he has been working with PT but is inconsistent in his mobility. He is debilitated and is fatigued easily then he is unable to get out of bed. Right Supra patellar Bursitis with blood filled blister. Blister drained. pain controlled with tramadol, lyrica Lumber spinal stenosis moderate to severe at L2- L5 and L3 vertebral chronic compression # spinal stenosis causing increased weakness of his legs and difficulty in ambulation. Cirrhosis of Liver as by CT with mild splenomegaly Thrombocytopenia noted in 2 admissions in Jan 2020 this may have made him bruise to much. CAD s/p CABG, ASA, Plavix and statin CHFpEF, torsemide HLD statin, fenofibrate Afib ASA, plavix. not on AC due to h/o internal bleeding as reported by patient. HTN torsemide, CKD 3 stable BPH has gaffney now GERD, ppi GOUT Allopurinol Depression sertraline CVA residual deficits, PAD status post carotid endarterectomy in 1973, LOGAN not on CPAP, LOGAN monitor. Restless leg syndrome. ropinirole Cholelithiasis with hydropic gall bladder VS,Fishbone, I+O VS, Fishbone, I+O Laboratory Tests 01/22/20 06:00 Vital Signs Date Time Temp Pulse Resp B/P (MAP) Pulse Ox O2 Delivery O2 Flow Rate FiO2 01/22/20 06:00 98.0 87 18 150/74 (99) 97 Room Air I&O- Last 24 Hours up to 6 AM 01/22/20 06:00 Intake Total 2300 ml Output Total 1250 ml Balance 1050 ml Discharge Summary General Date of Admission Jan 21, 2020 at 11:21 Date of Discharge 01/22/20 Discharge Summary PROCEDURES PERFORMED DURING STAY: [None]. DISCHARGE DIAGNOSES: Right Supra patellar Bursitis with blood filled blister. Cirrhosis of Liver as by CT with mild splenomegaly Thrombocytopenia Generalized deconditioning and difficulty in ambulation SECONDARY DIAGNOSIS: CAD s/p CABG, PAD status post carotid endarterectomy in 1973, CHF with preserved EF, HLD, Chronic A fib, HTN, CKD 3, BPH, GERD, Lumber spinal stenosis moderate to severe at L2-L5 and L3 vertebral chronic compression # LOGAN Depression Gout RLS Cholelithiasis with hydropic gall bladder COMPLICATIONS/CHIEF COMPLAINT: Suprapatellar Bursitis Of R Knee. HOSPITAL COURSE: 74 M PMHx CAD s/p CABG, CHF, HLD, Afib, HTN, CKD 3, BPH, GERD, sustained a mechanical fall at home tripping on a step and falling on his right knee, hip, and head on 01/12/20 and was admitted here till 01/16/20 for swelling of his right knee found to have a developing hematoma. Patient had bedside drainage at the ED with 40cc blood removal. Patient felt immediate relief afterwards. Patient came back to ED on 01/19/20 due to severe persistent pain in the right knee, inability to ambulate at home leading to urinary incontinence several times in bed as he could not get out of bed. He was noted to have a blood filled blister on the right knee with wide spread bruising in the thigh and leg. He was noted to be severely thrombocytopenic since last admission which may have caused such large amount of bruising and hematoma in the knee. CT scan of the abdomen showed fatty liver but not jame cirrhotic feature. He was evaluated by PT/OT and was found to be below his baseline functional capacity. Patient only has an elderly at home who is unable to help mobilize him. Here he has been working with PT but is inconsistent in his mobility. He is debilitated and is fatigued easily then he is unable to get out of bed. He was felt to need continued rehab on discharge so the Patient was discharged to ARU. DISCHARGE MEDICATIONS: Please see below. ALLERGIES: Please see below. PHYSICAL EXAMINATION ON DISCHARGE: As above LABORATORY DATA: Please see below. ACTIVITY: [As tolerated]. DIET: As tolerated DISPOSITION: 62 D/T Rehab Facility. DISCHARGE CONDITION: [Stable]. TIME SPENT ON DISCHARGE: 35 minutes. Vital Signs/I&Os Vital Signs Date Time Temp Pulse Resp B/P (MAP) Pulse Ox O2 Delivery O2 Flow Rate FiO2 01/22/20 14:00 98.3 77 16 144/59 (87) 96 Room Air I&O- Last 24 Hours up to 6 AM 01/22/20 05:59 Intake Total 2490 ml Output Total 850 ml Balance 1640 ml Laboratory Data Labs 24H Laboratory Tests 2 01/22/20 06:00: Nucleated Red Blood Cells % (auto) 0.0, Anion Gap 3L, Glomerular Filtration Rate > 60.0, Calcium Level 9.0, Total Bilirubin 1.3#H, Direct Bilirubin 0.6H, Aspartate Amino Transf (AST/SGOT) 55H, Alanine Aminotransferase (ALT/SGPT) 31, Alkaline Phosphatase 98, Total Protein 7.0, Albumin 2.7#L, Albumin/Globulin Ratio 0.6 CBC/BMP Laboratory Tests 01/22/20 06:00 Discharge Medications Scheduled Allopurinol (Zyloprim) 300 Mg Tablet, 300 MG PO DAILY, (Reported) Aspirin (Aspirin EC) 81 Mg Tablet.dr, 81 MG PO DAILY, (Reported) Clopidogrel Bisulfate (Clopidogrel) 75 Mg Tablet, 75 MG PO DAILY, (Reported) Ergocalciferol (Vitamin D2) (Vitamin D2) 50,000 Units Cap, 50,000 UNITS PO QWEEK, (Reported) tuesday Fenofibrate (Fenofibrate) 160 Mg Tab, 160 MG PO DAILY, (Reported) Nystatin (Nystatin Powder) 15 Gm Powder, 1 APPLIC TOP BID, (Reported) APPLY TO AFFCETED AREA ON RIGHT LEG Pantoprazole Sodium (Pantoprazole Sodium) 40 Mg Tablet.dr, 40 MG PO DAILY, (Reported) Potassium Chloride (Potassium Chloride) 10 Meq Tab, 20 MEQ PO QHS, (Reported) Potassium Chloride (K-Tab ER) 10 Meq Tablet.er, 10 MEQ PO QAM, (Reported) Pregabalin (Pregabalin) 150 Mg Capsule, 150 MG PO BID, (Reported) Ropinirole HCl (Ropinirole HCl) 5 Mg Tablet, 5 MG PO QHS, (Reported) Rosuvastatin Calcium (Rosuvastatin Calcium) 20 Mg Tablet, 20 MG PO QHS, (Rep orted) Sennosides/Docusate Sodium (Senna Plus Tablet) 1 Each Tablet, 2 TAB PO BID Sertraline HCl (Sertraline HCl) 100 Mg Tab, 100 MG PO DAILY, (Reported) Torsemide (Torsemide) 100 Mg Tab, 100 MG PO QAM, (Reported) Torsemide (Torsemide) 10 Mg Tablet, 40 MG PO QPM, (Reported) DINNERTIME Scheduled PRN Hydrocodone/Acetaminophen (Hydrocodone-Acetamin 10-325 mg) 1 Each Tablet, 1 TAB PO TIDP PRN for pain, (Reported) Nitroglycerin (Nitroglycerin) 0.4 Mg Sub, 0.4 MG SL NITRO PRN for CHEST PAIN, (Reported) Allergies Coded Allergies: No Known Allergies (Verified , 03/02/05) SHAY MANN MD Jan 22, 2020 12:17
[2020-01-22 12:35] LABS: BLOOD UREA NITROGEN 18 MG/DL (7-18); CARBON DIOXIDE LEVEL 31 mmol/L (20-29); CHLORIDE LEVEL 107 MEQ/L (98-107); CREATININE FOR GFR 0.92 MG/DL (0.70-1.30); GLOMERULAR FILTRATION RATE > 60.0 (>42); GLUCOSE, FASTING 136 MG/DL (70-100); POTASSIUM SERUM 3.5 MEQ/L (3.5-5.1); SODIUM LEVEL 141 MEQ/L (136-145)
--- NOTE | 2020-01-22 12:36 | HPEPDOC ---
[facility] Medical History & Physical Date of Admission Jan 19, 2020 Date of Service: Jan 19, 2020 History and Physical CHIEF COMPLAINT: can't walk HISTORY OF PRESENT ILLNESS: 74 y/o male recently discharged for right knee and LE hematoma presents with worsening pain and difficulty ambulating despite his walker and contact guard assistance at home, and TID pain medications. Despite his helping him a jamey, he says, "she can't do it anymore.He denies any falls, says the pain is 5/10 at the most, unable to ambulate more than 20 feet due to instability. He denies any f/c/cough/n/v/d/abd pain/dysuria/urigency,frequency, but admits to generalized weakness. He denies brbpr, melena, black tarry stools, cp,prssure, tightness, lightheadedness, or near syncope. Xray :prepatellar bursitis. Hospitalist was asked to admit for pain control and rehab. PAST MEDICAL HISTORY: Obstructive sleep apnea, not on CPAP. Chronic hypertension. GERD Restless leg syndrome. Chronic coronary artery disease status post CABG /dyslipidemia Hx Diastolic Chronic congestive heart failure History of CVA .residual deficits, peripheral arterial disease status post carotid endarterectomy in 1973 History of acute blood loss anemia Prediabetes. Atrial fibrillation fall, comrpession fracture L3, right leg hematoma. PAST SURGICAL HISTORY: CABG, carotid endarterectomy in 1973 HOME MEDICATIONS: SEE BELOW ALLERGIES: SEE BELOW SOCIAL HISTORY: lives with , denies etoh, tobacco, drug use. retired. FAMILY HISTORY: CVA REVIEW OF SYSTEMS: 10 point ROS negative aside from (+) findings on HPI PHYSICAL EXAMINATION: VITAL SIGNS: see below GENERAL APPEARANCE: Obese, AAOx 3. no respiratory distress HEENT: No conjunctival pallor, mucous membranes dry, nothyromegaly or cervical LAD thick neck. no JVD CARDIOVASCULAR: Regular rate and rhythm, no murmurs, rubs or gallops, S1S2 no murmurs LUNGS: Clear to auscultation bilaterally, AEBE ABDOMEN: Bowel sounds are hypoactive, the abdomen is obese, soft and nontender on palpation. EXT: ecchymoses in right leg, thigh, hematoma right knee unable to flex knee due to pain. 2+ edema b/l LABORATORY DATA: see below IMAGING: Exam: CTA Angiogram of the Abdominal Aorta and Bilateral Lower Extremities (Run-off) With IV Contrast Exam date and time: 01/19/2020 5:47 PM Age: 74 years old Clinical indication: Injury or trauma; Fall; Blunt trauma and swelling; Other: Knee area; Additional info: Recent fall; Worsening pain and bruising/swelling to rle TECHNIQUE: Imaging protocol: CT angiogram of the abdominal aorta, pelvis and bilateral lower extremities with IV iodinated contrast. 3D rendering (Not supervised by radiologist): MIP and/or 3D reconstructed images were created by the technologist. Radiation optimization: All CT scans at this facility use at least one of these dose optimization techniques: automated exposure control; mA and/or kV adjustment per patient size (includes targeted exams where dose is matched to clinical indication); or iterative reconstruction. Contrast material: ISOVUE 370; Contrast volume: 100 ml; Contrast route: CT-Knee WITHOUT CONTRAST RIGHT 01/12/2020 8:55 PM FINDINGS: Aorta: Mild atherosclerotic changes the abdominal aorta without evidence of an aneurysm or stenosis. Mild atherosclerotic changes at the origin of the superior mesenteric artery resulting in a mild stenosis without poststenotic dilatation. Celiac trunk and mesenteric arteries: No occlusion or significant stenosis. Renal arteries: Atherosclerotic changes at the origin of both renal arteries without significant stenosis or poststenotic dilatation. Right iliac arteries: The mild atherosclerotic changes in the right iliac arteries without evidence of aneurysm or stenosis. Right femoral/popliteal arteries: Mild atherosclerotic changes in the right common femoral artery. Minimal atherosclerotic changes in the right superficial femoral artery without evidence of a significant stenosis. Proximal right popliteal artery unremarkable. Mid and distal segments not well visualized due to patient motion. Right infrapopliteal arteries: Right infrapopliteal arteries demonstrate three-vessel runoff. Left iliac arteries: Mild atherosclerotic changes in the left iliac arteries without stenosis or aneurysm. Left femoral/popliteal arteries: Mild atherosclerotic changes in the left common femoral artery. Mild atherosclerotic changes in the left superficial femoral artery without significant stenosis. Mild atherosclerotic changes in the left popliteal artery without significant stenosis. Left infrapopliteal arteries: Left infrapopliteal arteries demonstrate three-vessel runoff. Lungs: Bibasilar atelectasis. Liver: Examination of the liver demonstrates a lobular surface contour, and enlargement of the left and caudate lobes, findings consistent with cirrhosis. Gallbladder and bile ducts: Cholelithiasis and hydropic gallbladder. Pancreas: There is diffuse pancreatic atrophy. Spleen: There is mild splenomegaly with a maximum span of 14.5 centimeters. No focal abnormalities demonstrated. Adrenals: Normal. No mass. Kidneys and ureters: Nonobstructive calculus lower pole left kidney. Stomach and bowel: Unremarkable. No obstruction. No mucosal thickening. Appendix: No evidence of appendicitis. Bladder: Unremarkable. No mass. Reproductive: Unremarkable as visualized. Intraperitoneal space: Unremarkable. No free air. No significant fluid collection. Lymph nodes: No lymphadenopathy. Bones/joints: Mild anterolisthesis of L4 on L5. Age indeterminate compression deformity of L3. Moderate to severe central spinal stenosis L2-L3, L3-L4, and severe central spinal stenosis at L4-L5 Osteoporosis. Status post total hip replacement on the left. Soft tissues: Subcutaneous edema in the right leg extending from the mid thigh region to the calf and foot. Otherwise unremarkable. IMPRESSION: 1. Mild atherosclerotic changes in the abdominal aorta, iliac arteries, common femoral, superficial femoral, and left popliteal arteries without significant stenosis or aneurysm. Proximal right popliteal artery unremarkable although the mid and distal segments or obscured by patient motion. There is three-vessel runoff to both lower legs. 2. Examination of the liver demonstrates a lobular surface contour, and enlargement of the left and caudate lobes, findings consistent with cirrhosis. 3. There is mild splenomegaly with a maximum span of 14.5 centimeters. No focal abnormalities demonstrated. 4. Cholelithiasis and hydropic gallbladder. 5. There is diffuse pancreatic atrophy. Electronically signed by: Von Olvera On 01/19/2020 18:28:17 PM RIGHT KNEE XRAY: INDICATION: right knee pain COMPARISON: Comparison 01/14/2020 TECHNIQUE: AP and lateral views only FINDINGS: There is significant suprapatellar soft tissue fullness which has actually increased from the prior exam. Two limited views show no significant change in appearance of the osseous structures. IMPRESSION: Findings as described above, likely a suprapatellar bursal effusion. <Electronically signed by Ankit Marrero > 01/19/20 1580 MICROBIOLOGY: Please see below. ASSESSMENT/PLAN: 74 y/o male recently discharged for right knee and LE hematoma presents with worsening pain and difficulty ambulating despite his walker and contact guard assistance at home, and TID pain medications. Despite his helping him a jamey, he says, "she can't do it anymore.He denies any falls, says the pain is 5/10 at the most, unable to ambulate more than 20 feet due to instability. He denies any f/c/cough/n/v/d/abd pain/dysuria/urigency,frequency, but admits to generalized weakness. He denies brbpr, melena, black tarry stools, cp,prssure, tightness, lightheadedness, or near syncope. Xray :prepatellar bursitis. Hospitalist was asked to admit for pain control and rehab. Right prepatellar bursitis/ right LE hematoma -s/p fall while on antiplatelet agents. supportive care with prn pain meds, assisted ambulation. ARU screen, assisted ambulation only. chronic back pain/ comrpession fx L3/osteoporosis -nondisplaced compression fracture at L3, moderate central spinal stenosis at L2-L3, L3-L4, and severe spinal stenosis at L4-L5. -PRN pain meds,rehab services Acute blood loss anemia -due to recent fall and hematoma. rbc transfusion not indicated CHF w pEF,.compensated strict i/o on torsemide. Atrial fibrillation -rate controlled. off oral AC due to hematoma Chronic coronary artery disease status post CABG /dyslipidemia c/w home meds History of CVA c/w home meds HTN, controlled continue home meds GERD chronic Restless legs chronic Vital Signs Vital Signs Date Time Temp Pulse Resp B/P (MAP) Pulse Ox O2 Delivery O2 Flow Rate FiO2 01/19/20 17:08 86 22 97 01/19/20 16:38 148/60 (89) 01/19/20 15:09 98.4 Room Air Laboratory Data Labs 24H Laboratory Tests 2 01/19/20 14:53: Urine Color JANIS, Urine Appearance CLEAR, Urine pH 5.0, Urine Specific [place] 1.013, Urine Protein NEGATIVE, Urine Glucose (UA) NEGATIVE, Urine Ketones NEGATIVE, Urine Blood NEGATIVE, Urine Nitrite NEGATIVE, Urine Bilirubin NEGATIVE, Urine Urobilinogen 4.0H, Urine Leukocyte Esterase NEGATIVE, Urine WBC (Auto) 0, Urine RBC (Auto) 0, Urine Hyaline Casts (Auto) 8, Urine Bacteria (Auto) NEGATIVE, Urine Squamous Epithelial Cells 1, Urine Mucus (Auto) SMALL, Urine Sperm (Auto) 01/19/20 15:24: Immature Granulocyte % (Auto) 0.3, Neutrophils (%) (Auto) 56.8, Lymphocytes (%) (Auto) 27.8, Monocytes (%) (Auto) 11.2H, Eosinophils (%) (Auto) 2.8, Basophils (%) (Auto) 1.1H, Neutrophils # (Auto) 3.7, Lymphocytes # (Auto) 1.8, Monocytes # (Auto) 0.7, Eosinophils # (Auto) 0.2, Basophils # (Auto) 0.1, Nucleated Red Blood Cells % (auto) 0.0, Immature Platelet Fraction 3.0, Prothrombin Time 13.2, Prothromb Time International Ratio 0.98, Activated Partial Thromboplast Time 32.6, Total Bilirubin 2.7H, Direct Bilirubin 0.6H, Aspartate Amino Transf (AST/SGOT) 105H, Alanine Aminotransferase (ALT/SGPT) 39, Alkaline Phosphatase 97, Total Protein 8.0, Albumin 3.5, Albumin/Globulin Ratio 0.8 01/19/20 18:39: CBC/BMP Laboratory Tests 01/19/20 15:24 Home Medications Scheduled Allopurinol (Zyloprim) 300 Mg Tablet, 300 MG PO DAILY Aspirin (Aspirin EC) 81 Mg Tablet.dr, 81 MG PO DAILY Clopidogrel Bisulfate (Clopidogrel) 75 Mg Tablet, 75 MG PO DAILY Ergocalciferol (Vitamin D2) (Vitamin D2) 50,000 Units Cap, 50,000 UNITS PO QWEEK tuesday Fenofibrate (Fenofibrate) 160 Mg Tab, 160 MG PO DAILY Nystatin (Nystatin Powder) 15 Gm Powder, 1 APPLIC TOP BID APPLY TO AFFCETED AREA ON RIGHT LEG Pantoprazole Sodium (Pantoprazole Sodium) 40 Mg Tablet.dr, 40 MG PO DAILY Potassium Chloride (Potassium Chloride) 10 Meq Tab, 20 MEQ PO QHS Potassium Chloride (K-Tab ER) 10 Meq Tablet.er, 10 MEQ PO QAM Pregabalin (Pregabalin) 150 Mg Capsule, 150 MG PO BID Ropinirole HCl (Ropinirole HCl) 5 Mg Tablet, 5 MG PO QHS Rosuvastatin Calcium (Rosuvastatin Calcium) 20 Mg Tablet, 20 MG PO QHS Sertraline HCl (Sertraline HCl) 100 Mg Tab, 100 MG PO DAILY Torsemide (Torsemide) 100 Mg Tab, 100 MG PO QAM Torsemide (Torsemide) 10 Mg Tablet, 40 MG PO QPM DINNERTIME Scheduled PRN Hydrocodone/Acetaminophen (Hydrocodone-Acetamin 10-325 mg) 1 Each Tablet, 1 TAB PO TIDP PRN for pain Nitroglycerin (Nitroglycerin) 0.4 Mg Sub, 0.4 MG SL NITRO PRN for CHEST PAIN Allergies Coded Allergies: No Known Allergies (Verified , 03/02/05) A-FIB/CHADSVASC A-FIB History Current/History of A-Fib/PAF?: Yes Current PO Anticoag Therapy: No Age/Risk Factor Scoring CHADSVASC: CHADSVASC Response (Comments) Value Age Risk Factor Age >/= 75 years old 2 Gender Risk Factor Male 0 Hx of CHF Yes 1 Hx of HTN Yes 1 Hx of Stroke/TIA/or VTE Yes 2 Hx of Diabetes No 0 Hx of Vascular Disease Yes 1 Total 7 Treatment Treatment ordered: NONE, Holding Other Reason Anticoagulant not given: Current bleeding HOMERO LEE MD Jan 19, 2020 19:23
[2020-01-22 12:56] LABS: ALBUMIN 2.7 GM/DL (3.2-5.2); ALT/SGPT 31 U/L (12-78); BILIRUBIN,DIRECT 0.6 MG/DL (0.0-0.2); BILIRUBIN,TOTAL 1.3 MG/DL (0.2-1.0)
[2020-01-22] MEDS ORDERED: SENN-52 PO (13:55)
[2020-01-22 14:00] VITALS: BP 144/59
== END 2020-01-22 14:14 | DRG 558 ==
LOC: M ED 14:53 → EDBD 14:53 → M ED INP 14:54 → ENRESERV 20:15 → M MSPAV 21:10 → OBSVTOIN 01-21 11:21
PROVIDERS: ADMIT General Practice; ATTEND Internal Medicine Nephrology
DX: M70.41 Prepatellar bursitis, right knee (principal); I50.32 Chronic diastolic (congestive) heart failure; I13.0 Hypertensive heart and chronic kidney disease with heart failure and stage 1 through stage 4 chronic kidney disease, or unspecified chronic kidney disease; K82.1 Hydrops of gallbladder; D62 Acute posthemorrhagic anemia; N18.30 Chronic kidney disease, stage 3 unspecified; I48.91 Unspecified atrial fibrillation; K74.60 Unspecified cirrhosis of liver; G47.33 Obstructive sleep apnea (adult) (pediatric); G25.81 Restless legs syndrome; I25.10 Atherosclerotic heart disease of native coronary artery without angina pectoris; E78.5 Hyperlipidemia, unspecified; K21.9 Gastro-esophageal reflux disease without esophagitis; Z86.73 Personal history of transient ischemic attack (TIA), and cerebral infarction without residual deficits; Z79.82 Long term (current) use of aspirin; Z79.899 Other long term (current) drug therapy; M10.9 Gout, unspecified; K80.20 Calculus of gallbladder without cholecystitis without obstruction; F32.9 Major depressive disorder, single episode, unspecified; N40.0 Benign prostatic hyperplasia without lower urinary tract symptoms

== ENCOUNTER 2020-01-22 15:05 | Inpatient (IN) | payer MEDICARE, BC ==
[~2020-01-22] VITALS: Ht 172.7 cm; Wt 117.4 kg
[~2020-01-22 15:05] MED LIST changes: +NYST1POW9 TOP; +SENN-52 PO
[2020-01-22 15:45] VITALS: BP 155/74
[2020-01-22] MEDS ORDERED: ACETAMINOPHEN TAB 650MG DOSE (2X325MG) PO SCH (16:45)
[2020-01-22] MEDS ORDERED: NITROGLYCERIN 0.4 MG SUBL TABLET SL PRN (16:45)
[2020-01-22] MEDS ORDERED: PERCOCET 5MG/325MG TAB PO PRN (16:45)
[2020-01-22] MEDS ORDERED: ONDANSETRON 4 MG TAB PO PRN (16:45)
[2020-01-22] MEDS ORDERED: PILL CUTTER 1 EACH XX PRN (17:15)
[2020-01-22] MEDS: TORSEMIDE 20 MG TAB PO SCH (17:28)
--- NOTE | 2020-01-22 18:18 | HPEPDOC ---
[facility] Note DATE OF SERVICE: 01.22.2020 TIME OF ADMISSION: Please refer to physician's admission order. SOURCE OF ADMISSION INFORMATION: Medical Records and Patient ADMITTING DIAGNOSES: Hematoma with prepatellar bursitis RLE Chronc Back pain L3 Compression fracture, HNP, DDD, Lumbar Stenosis CHF A fib CAD s/p CABG History CVA GERD Restless Legs Morbid Obesity CHIEF COMPLAINT: . R LE Pain Low back pain HISTORY OF PRESENT ILLNESS: This is a 74 year old hypertensive diabetic gentleman with polyarticular arthritis who had been an inpatient and discharged for right knee hematoma wo was readmitted to acute care 01.19.2020 for worsening pain, difficulty ambulating and breakdown in home care situation. He notes about a month ago, he tripped on the small threshold to his home, injuring his knee. He had been on anticoagulants previously and had some bleeding issues, was being maintained on ASA. His mobility compromise had diminished to no more than 20 ft at a time, limited by weakness and pain and instability and significant falls risk. He is admitted to comprehensive rehabilitation for strengthening, reconditioning and pain management. REVIEW OF SYSTEMS: The following is a completed review of systems and has been reviewed. Review of systems otherwise unremarkable. PAIN: Patient self reports no pain. EYES: No recent vision changes. EARS, NOSE, & THROAT: No throat pain, or dysphagia, or rhinorrhea. CARDIOVASCULAR: Denies chest pain or palpitations. PULMONARY: Denies shortness of breath. GASTROINTESTINAL: Denies constipation/diarrhea. GENITOURINARY: BPH, continent MUSCULOSKELETAL: Polyarticular pain, worse RLE NEUROLOGICAL: neg HEMATOLOGICAL: .easy brusing, bleeding SKIN: .resolving hematoma right knee PSYCHIATRIC: Unremarkable. All other review of systems found to be negative. PAST MEDICAL HISTORY: L3 compression fracture HNP Spinal Stenosis Cataracts Narcolepsy AK Afib HX GI Bleeding CKD III Renal Stone BPH Nocturia x 3/night Obesity Arthritis Gout Metabolic Syndrome Depression Anxiety CVA Cholelithiasis Nephrolithiasis LOGAN PAST SURGICAL HISTORY: S/P Left carotid endarterectomy S/P CABGx 3, harvest right LE Fx Left Knee ORIF Left ankle ORIF Hip Fx ALLERGIES: Please see below. MEDICATIONS: Please see below. FAMILY HISTORY: Mother 100, Father 63. SOCIAL HISTORY: . Non Smoker, NO EtOH, lives in a 1 step entrance 1 [place] home. DIET: 2G Na . PHYSICAL EXAMINATION: VITAL SIGNS: Please see below. GENERAL: Pleasant and cooperative. Mild distress. Alert and oriented times three. HEENT: PERRL. Extraocular movements intact. Clear conjunctiva, no adenopathy or thyromegaly. Full cervical range of motion without tenderness or spasm. CARDIOVASCULAR: Distant S1 S2. LUNGS: Clear to auscultation bilaterally. No wheezes. No rhonchi. ABDOMEN: Soft, nontender obese. Positive Normal active bowel sounds. NEUROLOGICAL: Alert and oriented times three. Cranial nerves II through XII intact. Sensation intact all 4 extremities to touch. 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 2/5, plantar flexion 3/5, left knee extension, dorsiflexion, plantar flexion 4+/5. SKIN: multiple extensive deep ecchymoses entire right leg, right upper arm, right dorsal knee. No breakdowns on feet, good capillary refill toes. 2+ right 1+ left peripheral edema. Tender right medial joint line and peripatellar region with valgus laxity. LABORATORY DATA: Please see below. IMAGING:Imaging documentation personally reviewed by record. 01/19/20 CT Angio abdomen 1. Mild atherosclerotic changes in the abdominal aorta, iliac arteries, common femoral, superficial femoral, and left popliteal arteries without significant stenosis or aneurysm. Proximal right popliteal artery unremarkable although the mid and distal segments or obscured by patient motion. There is three-vessel runoff to both lower legs. 2. Examination of the liver demonstrates a lobular surface contour, and enlargement of the left and caudate lobes, findings consistent with cirrhosis. 3. There is mild splenomegaly with a maximum span of 14.5 centimeters. No focal abnormalities demonstrated. 4. Cholelithiasis and hydropic gallbladder. 5. There is diffuse pancreatic atrophy. 01/18 Xray Right Knee There is significant suprapatellar soft tissue fullness which has actually increased from the prior exam. 01/11 Xray Left foreleg There is an old healed fracture deformity of the left mid tibial diaphysis. There is also an old healed fracture deformity of the left proximal fibular diaphysis. 01/11 CT RLE There is a large acute hematoma in the subcutaneous tissues in the anterior aspect of the right knee that measures approximately 10 cm x 4.8 cm x 15.1 cm. There is soft tissue swelling and bruising in the anterior aspect of the right knee. There are surgical clips in the subcutaneous tissues along the medial aspect of the right knee 11.7 CT neck 2. Multilevel degenerative disc disease and facet arthropathy. Multilevel central and foraminal stenosis FUNCTIONAL STATUS: Premorbid: Independent with all activities of daily life as well as mobility. On Admission: - Max assistance for lower body dressing, shower transfers, stairs. -Min assistance for bathing, upper body dressing, bed chair and wheelchair marquez sfers, toilet transfers, ambulation 25 ft, knee moncho. - SB/Min assistance for grooming. Modified independence for social interaction, expression, comprehension, bowel and bladder. GOALS: ASSESSMENT:- This is a 74 year old hypertensive diabetic gentleman with polyarticular arthritis who had been an inpatient and discharged for right knee hematoma wo was readmitted to acute care 01.19.2020 for worsening pain, difficulty ambulating and breakdown in home care situation. He notes about a month ago, he tripped on the small threshold to his home, injuring his knee. He had been on anticoagulants previously and had some bleeding issues, was being maintained on ASA. His mobility compromise had diminished to no more than 20 ft at a time, limited by weakness and pain and instability and is a significant falls risk. He is admitted to comprehensive rehabilitation for strengthening, reconditioning and pain management. PLAN: 1. Rehab- PT/OT advance gait and ADls, strengthen/stretch/maintain ROM all 4 limbs. We'll continue to work on timing pain medication with therapy interventions to optimize possible capacity to participate. He has weakness in the lower extremities, probably from stenosis and local trauma, may benefit from bracing for the right knee/ankle. Pain management will be challenging. 2. Neuro- RLS, Polyradiculoneuropathy and spinal stenosis, Rx Lyrica, Requip 3. Ortho- DJD R Knee, will wrap, consider topical voltaren gel for pain, however need to take care for use of NSAID + Asa in light of hematological issues, will discuss holding Plavix to see if we can get hold of the massive soft tissue bleeding he has sustained and may continue to sustain. 4. Cardiac- hx of CAD with CABG, CHF,currently no symptoms, Torsemide -HTN -HLD- c/u rosuvastatin, fenofibrate 5. Resp -incentive spirometry, monitor for infection 6. Endo- metabolic syndrome, dietary education, low CHO, increased UBE recommended 7. - BPH 8. GI ppx- pantoprazole 9. Anxiety/depression Sertraline 10. Skin-nystatin powder fungal infections POST ADMISSION PHYSICIAN EVALUATION: Medical and functional status: Description of medical status, medical assessment: As above. Rehabilitation diagnosis and current and prior cold morbid medical conditions as above. Risk of complications and plans to mitigate them as above. Description of functional status current status is as above. Prior status as above. Status compared to preadmission: There are no clinically significant differences between the patient's current status and the information described on the preadmission screening document. Treatment plan anticipated: Treatment plan is as described above. Required disciplines including physical therapy, occupational therapy, others as noted above]. Intensity of services: 3 hours a day, 6-7 days a week. Special considerations: There are no specific special or safety considerations that would likely preclude immediate implementation of an intensive rehabilitation program or subsequently influence the plan of care. ATTESTATION: Considering all the information above, it is my best judgment that this patient requires intensive rehabilitation therapy as described above and an inpatient hospital environment due to the complexity of nursing, medical, and rehabilitation needs required by the patient. Furthermore, this patient can reasonably be expected to participate in an benefit from an inpatient rehabilitation stay with an interdisciplinary team approach to the delivery of rehabilitation care under the direction and supervision of rehabilitation physician. PROGNOSIS: Excellent. ESTIMATED LENGTH OF STAY:7-10 days. PROJECTED DISCHARGE DESTINATION: Home with family support and any durable medical equipment required to increase functional safety and mobility. TIME SPENT COUNSELING AND COORDINATING INITIAL CARE: Greater than 60 minutes. This document is generated using speech recognition software which may result in grammatical, typographical and individual word errors. Vital Signs Vital Sign - Last 24 Hours 01/22/20 15:45 Temp 98.4 Pulse 82 Resp 18 B/P (MAP) 155/74 (101) Pulse Ox 98 Home Medications Scheduled Allopurinol (Zyloprim) 300 Mg Tablet, 300 MG PO DAILY, (Reported) Aspirin (Aspirin EC) 81 Mg Tablet.dr, 81 MG PO DAILY, (Reported) Clopidogrel Bisulfate (Clopidogrel) 75 Mg Tablet, 75 MG PO DAILY, (Reported) Ergocalciferol (Vitamin D2) (Vitamin D2) 50,000 Units Cap, 50,000 UNITS PO QWEEK, (Reported) tuesday Fenofibrate (Fenofibrate) 160 Mg Tab, 160 MG PO DAILY, (Reported) Nystatin (Nystatin Powder) 15 Gm Powder, 1 APPLIC TOP BID, (Reported) APPLY TO AFFCETED AREA ON RIGHT LEG Pantoprazole Sodium (Pantoprazole Sodium) 40 Mg Tablet.dr, 40 MG PO DAILY, (Reported) Potassium Chloride (Potassium Chloride) 10 Meq Tab, 20 MEQ PO QHS, (Reported) Potassium Chloride (K-Tab ER) 10 Meq Tablet.er, 10 MEQ PO QAM, (Reported) Pregabalin (Pregabalin) 150 Mg Capsule, 150 MG PO BID, (Reported) Ropinirole HCl (Ropinirole HCl) 5 Mg Tablet, 5 MG PO QHS, (Reported) Rosuvastatin Calcium (Rosuvastatin Calcium) 20 Mg Tablet, 20 MG PO QHS, (Reported) Sennosides/Docusate Sodium (Senna Plus Tablet) 1 Each Tablet, 2 TAB PO BID Sertraline HCl (Sertraline HCl) 100 Mg Tab, 100 MG PO DAILY, (Reported) Torsemide (Torsemide) 100 Mg Tab, 100 MG PO QAM, (Reported) Torsemide (Torsemide) 10 Mg Tablet, 40 MG PO QPM, (Reported) DINNERTIME Scheduled PRN Hydrocodone/Acetaminophen (Hydrocodone-Acetamin 10-325 mg) 1 Each Tablet, 1 TAB PO TIDP PRN for pain, (Reported) Nitroglycerin (Nitroglycerin) 0.4 Mg Sub, 0.4 MG SL NITRO PRN for CHEST PAIN, (Reported) Allergies Coded Allergies: No Known Allergies (Verified , 03/02/05) A-FIB/CHADSVASC A-FIB History Current/History of A-Fib/PAF?: Yes Current PO Anticoag Therapy: Yes Age/Risk Factor Scoring CHADSVASC: CHADSVASC Response (Comments) Value Age Risk Factor Age >/= 75 years old 2 Gender Risk Factor Male 0 Hx of CHF Yes 1 Hx of HTN Yes 1 Hx of Stroke/TIA/or VTE Yes 2 Hx of Diabetes No 0 Hx of Vascular Disease Yes 1 Total 7 Treatment Treatment ordered: Other Other anticoagulant ordered: plavix Reason Anticoagulant not given: Current bleeding CLAIR PALOMARES MD Jan 22, 2020 18:18
[2020-01-22 20:39] VITALS: BP 119/68
[2020-01-22] MEDS: NYSTATIN 100,000 UNITS/GM TOPICAL PWD 15 GM TOP SCH (20:41)
[2020-01-22] MEDS: SENNA 8.6 MG TAB (SENOKOT) PO SCH (20:41)
[2020-01-22] MEDS: ROSUVASTATIN 10 MG TAB (CRESTOR) PO SCH (20:41)
[2020-01-22] MEDS: POTASSIUM CHLORIDE 10 MEQ SR TABLET PO SCH (20:41)
[2020-01-22] MEDS: PREGABALIN 75 MG CAP(LYRICA) PO SCH (20:41)
[2020-01-22] MEDS: rOPINIRole 2MG TAB PO SCH (20:41)
[2020-01-23 06:05] VITALS: BP 139/66
[2020-01-23 07:33] LABS: BASO # 0.1 10^3/uL (0.0-0.2); BASO % 0.8 % (0.0-1.0); EOS # 0.2 10^3/uL (0.0-0.5); EOS % 3.1 % (0.0-3.0); HEMOGLOBIN 13.2 g/dl (13.5-17.5); LYMPH # 1.8 10^3/uL (1.5-5.0); MEAN CORPUSCULAR HEMOGLOBIN 30.4 pg (27.0-33.0); MEAN CORPUSCULAR HGB CONC 31.4 g/dl (32.0-36.5); MEAN CORPUSCULAR VOLUME 96.8 fl (80.0-96.0); MONO # 0.5 10^3/uL (0.0-0.8); MONO % 8.6 % (0.0-5.0); NEUTROPHILS # 3.5 10^3/uL (1.5-8.5); NEUTROPHILS % 58.3 % (36.0-66.0); PLATELET COUNT, AUTOMATED 117 10^3/uL (150-450); RED BLOOD COUNT 4.34 10^6/uL (4.30-6.10); WHITE BLOOD COUNT 6.1 10^3/uL (4.0-10.0)
[2020-01-23 07:41] LABS: INR 1.06
[2020-01-23 08:01] LABS: ALBUMIN 2.9 GM/DL (3.2-5.2); ALT/SGPT 31 U/L (12-78); BILIRUBIN,TOTAL 1.5 MG/DL (0.2-1.0); BLOOD UREA NITROGEN 17 MG/DL (7-18); CARBON DIOXIDE LEVEL 33 MEQ/L (21-32); CHLORIDE LEVEL 104 MEQ/L (98-107); CREATININE FOR GFR 0.92 MG/DL (0.70-1.30); GLOMERULAR FILTRATION RATE > 60.0 (>42); GLUCOSE, FASTING 101 MG/DL (70-100); POTASSIUM SERUM 3.6 MEQ/L (3.5-5.1); SODIUM LEVEL 142 MEQ/L (136-145); TOTAL PROTEIN 7.7 GM/DL (6.4-8.2)
[2020-01-23] MEDS: SENNA 8.6 MG TAB (SENOKOT) PO SCH ×2 (09:00→20:54)
[2020-01-23] MEDS: ASPIRIN 81 MG ENTERIC TAB PO SCH (09:25)
[2020-01-23] MEDS: TORSEMIDE 100 MG TAB PO SCH (09:26)
[2020-01-23] MEDS: SERTRALINE 100 MG TAB PO SCH (09:26)
[2020-01-23] MEDS: PANTOPRAZOLE 40MG TAB (PROTONIX) PO SCH (09:27)
[2020-01-23] MEDS: FENOFIBRATE 145 MG TAB (TRICOR) PO SCH (09:27)
[2020-01-23] MEDS: PREGABALIN 75 MG CAP(LYRICA) PO SCH ×2 (09:27→20:52)
[2020-01-23] MEDS: CLOPIDOGREL 75 MG TAB PO SCH (09:27)
[2020-01-23] MEDS: allopurinoL 300 MG TAB PO SCH (09:27)
[2020-01-23] MEDS: POTASSIUM CHLORIDE 10 MEQ SR TABLET PO SCH ×2 (09:28→20:52)
[2020-01-23] MEDS: NYSTATIN 100,000 UNITS/GM TOPICAL PWD 15 GM TOP SCH ×2 (09:28→20:54)
[2020-01-23 11:55] LABS: APPEARANCE, URINE CLEAR (CLEAR); BACTERIA, URINE AUTO NEGATIVE (NEGATIVE); BILIRUBIN, URINE AUTO NEGATIVE (NEGATIVE); BLOOD, URINE BLOOD NEGATIVE (NEGATIVE); COLOR, URINE YELLOW (YELLOW); GLUCOSE, URINE (UA) AUTO NEGATIVE (NEGATIVE); KETONE, URINE AUTO NEGATIVE (NEGATIVE); LEUKOCYTE ESTERASE, URINE AUTO NEGATIVE (NEGATIVE); NITRITE, URINE AUTO NEGATIVE (NEGATIVE); PROTEIN, URINE AUTO NEGATIVE (NEGATIVE); RBC, URINE AUTO 2 /HPF (0-3); SPECIFIC GRAVITY URINE AUTO 1.009 (1.002-1.035); SQUAMOUS EPITHELIAL CELL UR AU 1 /HPF (0-6); UROBILINOGEN, URINE AUTO 0.2 mg/dL (0.0-2.0); WBC, URINE AUTO 0 /HPF (0-3)
[2020-01-23 14:00] VITALS: BP 155/72
--- NOTE | 2020-01-23 14:06 | IPNPDOC ---
Text Note Date of Service The patient was seen on 01/23/20. NOTE Subjective: Patient is a 74-year-old male with a PMHx of CAD s/p CABG, HTN, CHF, A. fib (not on anticoagulating), DLP, Hx of CVA w/ residual deficits, PAD (s/p Carotid endarterectomy), LOGAN (not on CPAP), RLS, Chronic back pain 2/2 Compression fracture L3 / Spinal stenosis, R leg hematoma, GERD who presented to the ER after noting difficulty with ambulation. Patient uses a walker at baseline, and was having difficulty at home despite his helping him and says that he couldn't do it anymore. Patient was admitted to the hospital service for further evaluation and treatment. Patient was ultimately transitioned to acute rehabilitation unit on 01/22/2020 for continued physical therapy. Hospital services consulted for medical comanagement. Patient was seen and examined at the bedside. Currently patient denies any chest pain, shortness of breath, palpitations, nausea, vomiting, abdominal pain, constipation, diarrhea, or urinary discomfort. Patient has been working with physical therapy. Patient reports that he would like to go home. Objective: Vitals (See below) General: Lying in bed, no acute distress, comfortable, AAOx3 HEENT: NC, AT CVS: +S1S2 Lungs: Fair air entry b/l, -w/r/r Abdomen: Soft, ND, NT Extremities: R knee with dressing, R leg with trace edema, L leg without edema, - Calf tenderness Assessment and plan: Chronic back pain 2/2 Compression fracture L3 / Spinal stenosis - c/w PT and OT as per ARU - Pain control as per ARU R leg hematoma - s/p drainage of blood blister - c/w Tramadol / Pregabalin CAD s/p CABG - c/w ASA, Plavix and Rosuvastatin HTN - BP well controlled - c/w Torsemide Chronic CHF (Preserved EF) - No evidence of exacerbation - c/w Torsemide A. fib - Not on anticoagulating DLP - c/w Rosuvastatin and Fenofibrate Hx of CVA w/ residual deficits PAD - s/p Carotid endarterectomy CKD3 - Cr at baseline LOGAN - Not on CPAP at home Gout - c/w Allopurinol Mood disorder - c/w Sertraline RLS - c/w Ropinirole Vitamin D deficiency - c/w Supplementation PO BPH GERD - c/w Protonix DVT prophylaxis - c/w TEDs/Sequentials Disposition: - PT and OT as per ARU Scott LAKHANI, I+O Scott LAKHANI, I+O Laboratory Tests 01/23/20 07:05 Vital Signs Date Time Temp Pulse Resp B/P (MAP) Pulse Ox O2 Delivery O2 Flow Rate FiO2 01/23/20 06:05 98.6 78 16 139/66 (90) 97 Room Air I&O- Last 24 Hours up to 6 AM 01/23/20 06:00 Intake Total 940 ml Output Total 3500 ml Balance -2560 ml GIOVANNA BAIRES MD Jan 23, 2020 14:06
--- NOTE | 2020-01-23 15:21 | IPNPDOC ---
PM&R Progress Note DATE OF SERVICE: Jan 23, 2020 [employer] Progress Note DATE OF ADMISSION: Jan 22, 2020 at 15:45 INPATIENT REHABILITATION ADMISSION DAY: #2 CHIEF COMPLAINT: . R LE Pain Low back pain SUBJECTIVE: This is a 74 year old hypertensive diabetic gentleman with polyarticular arthritis who had been an inpatient and discharged for right knee hematoma wo was readmitted to acute care 01.19.2020 for worsening pain, di fficulty ambulating and breakdown in home care situation. He notes about a month ago, he tripped on the small threshold to his home, injuring his knee. He had been on anticoagulants previously and had some bleeding issues, was being maintained on ASA. His mobility compromise had diminished to no more than 20 ft at a time, limited by weakness and pain and instability and significant falls risk. He is admitted to comprehensive rehabilitation for strengthening, reconditioning and pain management and has begun various evaluations. Patient was observed overnight feeling he needs to go home and having difficulty processing that he regain some strength and stability for gait, transfers and safe discharge home. This morning he appears more receptive to the program with the understanding that if he participates with his greatest effort and the harder he works, the more likely he will be discharged sooner than later at optimal level of functional capabilities. PAST MEDICAL HISTORY: L3 compression fracture HNP Spinal Stenosis Cataracts Narcolepsy SC Afib HX GI Bleeding CKD III Renal Stone BPH Nocturia x 3/night Obesity Arthritis Gout Metabolic Syndrome Depression Anxiety CVA Cholelithiasis Nephrolithiasis LOGAN PAST SURGICAL HISTORY: S/P Left carotid endarterectomy S/P CABGx 3, harvest right LE Fx Left Knee ORIF Left ankle ORIF Hip Fx FUNCTIONAL STATUS: Patient is able to ambulate with contact-guard assistance. Restroom, condom cath discontinued in bladder training program begun. He has poor safety awareness ALLERGIES: See Below MEDICATIONS: Reviewed, see below. REVIEW OF SYSTEMS: The following is a completed review of systems and has been reviewed. Review of systems otherwise unremarkable. REVIEW OF SYSTEMS: The following is a completed review of systems and has been reviewed. Review of systems otherwise unremarkable. PAIN: Patient self reports no pain. EYES: No recent vision changes. EARS, NOSE, & THROAT: No throat pain, or dysphagia, or rhinorrhea. CARDIOVASCULAR: Denies chest pain or palpitations. PULMONARY: Denies shortness of breath. GASTROINTESTINAL: Denies constipation/diarrhea. GENITOURINARY: BPH, continent MUSCULOSKELETAL: Polyarticular pain, worse RLE NEUROLOGICAL: neg HEMATOLOGICAL: .easy brusing, bleeding SKIN: .resolving hematoma right knee PSYCHIATRIC: Unremarkable. All other review of systems found to be negative OBJECTIVE: VITAL SIGNS: Please see below. GENERAL: Pleasant and cooperative. Mild distress. Alert and oriented times three. HEENT: PERRL. Extraocular movements intact. Clear conjunctiva, no adenopathy or thyromegaly. Full cervical range of motion without tenderness or spasm. CARDIOVASCULAR: Distant S1 S2. LUNGS: Clear to auscultation bilaterally. No wheezes. No rhonchi. ABDOMEN: Soft, nontender obese. Positive Normal active bowel sounds. NEUROLOGICAL: Alert and oriented times three. Cranial nerves II through XII intact. Sensation intact all 4 extremities to touch. EXTREMITIES: 5/5 inventory control coordinator, elbow flexion, elbow extension, unable to fully assess R knee extension, R foot dorsiflexion approx. 2/5, plantar flexion 3/5, left knee extension, dorsiflexion, plantar flexion 4+/5. SKIN: multiple extensive deep ecchymoses entire right leg, right upper arm, right dorsal knee. No breakdowns on feet, good capillary refill toes. 2+ right 1+ left peripheral edema. Tender right medial joint line and peripatellar region with valgus laxity. FUNCTIONAl STATUS: Contact-guard standby assistance. Ambulation using rolling walker 34 feet. Negotiating to his threshold with rolling walker, contact guard assistance for safety. LABORATORY DATA: Reviewed. Please see below. CBC, BMP, UA, INR unremarkable MICROBIOLOGY: Please see below. ASSESSMENT AND PLAN: Hematoma with prepatellar bursitis RLE Chronc Back pain L3 Compression fracture, HNP, DDD, Lumbar Stenosis CHF A fib CAD s/p CABG History CVA GERD Restless Legs Morbid Obesity DIAGNOSES This is a 74 year old hypertensive diabetic gentleman with polyarticular arthritis who had been an inpatient and discharged for right knee hematoma wo was readmitted to acute care 01.19.2020 for worsening pain, difficulty ambulating and breakdown in home care situation. He notes about a month ago, he tripped on the small threshold to his home, injuring his knee. He had been on anticoagulants previously and had some bleeding issues, was being maintained on ASA. His mobility compromise had diminished to no more than 20 ft at a time, limited by weakness and pain and instability and is a significant falls risk. He is admitted to comprehensive rehabilitation for strengthening, reconditioning and pain management. PLAN: 1. Rehab- PT/OT advance gait and ADls, strengthen/stretch/maintain ROM all 4 limbs. We'll continue to work on timing pain medication with therapy interventions to optimize possible capacity to participate. He has weakness in the lower extremities, probably from stenosis and local trauma, may benefit from bracing for the right knee/ankle. Pain management will be challenging. 2. Neuro- RLS, Polyradiculoneuropathy and spinal stenosis, Rx Lyrica, Requip 3. Ortho- DJD R Knee, will wrap, consider topical voltaren gel for pain, however need to take care for use of NSAID + Asa in light of hematological issues, will discuss holding Plavix to see if we can get hold of the massive soft tissue bleeding he has sustained and may continue to sustain. 4. Cardiac- hx of CAD with CABG, CHF,currently no symptoms, Torsemide -HTN -HLD- c/u rosuvastatin, fenofibrate 5. Resp -incentive spirometry, monitor for infection 6. Endo- metabolic syndrome, dietary education, low CHO, increased UBE recommended 7. - BPH 8. GI ppx- pantoprazole 9. Anxiety/depression Sertraline 10. Skin-nystatin powder fungal infections ANTICIPATED DISPOSITION home TIME SPENT: Chart Review, examination and documentation 30 minutes. This document is generated using speech recognition software which may result in grammatical, typographical and individual word errors. Allergies Coded Allergies: No Known Allergies (Verified , 03/02/05) Vital Signs Vital Signs Date Time Temp Pulse Resp B/P (MAP) Pulse Ox O2 Delivery O2 Flow Rate FiO2 01/23/20 06:05 98.6 78 16 139/66 (90) 97 Room Air Laboratory Data CBC/BMP Laboratory Tests 01/23/20 07:05 Labs 24H Laboratory Tests 2 01/23/20 07:05: Immature Granulocyte % (Auto) 0.2, Neutrophils (%) (Auto) 58.3, Lymphocytes (%) (Auto) 29.0, Monocytes (%) (Auto) 8.6H, Eosinophils (%) (Auto) 3.1H, Basophils (%) (Auto) 0.8, Neutrophils # (Auto) 3.5, Lymphocytes # (Auto) 1.8, Monocytes # (Auto) 0.5, Eosinophils # (Auto) 0.2, Basophils # (Auto) 0.1, Nucleated Red Blood Cells % (auto) 0.0, Prothrombin Time 14.0, Prothromb Time International Ratio 1.06, Anion Gap 5L, Glomerular Filtration Rate > 60.0, Calcium Level 9.0, Total Bilirubin 1.5H, Aspartate Amino Transf (AST/SGOT) 53H, Alanine Aminotransferase (ALT/SGPT) 31, Alkaline Phosphatase 92, Total Protein 7.7, Albumin 2.9L, Albumin/Globulin Ratio 0.6 01/23/20 11:25: Urine Color YELLOW, Urine Appearance CLEAR, Urine pH 6.0, Urine Specific [place] 1.009, Urine Protein NEGATIVE, Urine Glucose (Auto)(UA) NEGATIVE, Urine Ketones (Auto) NEGATIVE, Urine Blood NEGATIVE, Urine Nitrite NEGATIVE, Urine Bilirubin NEGATIVE, Urine Urobilinogen 0.2, Urine Leukocyte Esterase (Auto) NEGATIVE, Urine WBC (Auto) 0, Urine RBC (Auto) 2, Urine Hyaline Casts (Auto) 6, Urine Bacteria (Auto) NEGATIVE, Urine Squamous Epithelial Cells 1, Urine Sperm (Auto) Current Medications Current Medications Current Medications Medications (Trade) Dose Ordered Sig/Ricky Route PRN Reason Start Time Stop Time Status Last Admin Dose Admin Acetaminophen (Tylenol Tab) 650 mg Q6HP PO 01/22/20 16:45 01/25/20 06:00 Allopurinol (Zyloprim) 300 mg DAILY PO 01/23/20 09:00 01/23/20 09:27 Aspirin (Ecotrin) 81 mg DAILY PO 01/23/20 09:00 01/23/20 09:25 Clopidogrel Bisulfate (PLAVix) 75 mg DAILY PO 01/23/20 09:00 01/23/20 09:27 Fenofibrate (Tricor) 145 mg DAILY PO 01/23/20 09:00 01/23/20 09:27 Nitroglycerin (Nitrostat (1/ 150)) 0.4 mg Q5MP PRN SL CHEST PAIN 01/22/20 16:45 Nystatin (Mycostatin Powder, Nystop) apply to affected areas R Leg BID TOP 01/22/20 21:00 01/23/20 09:28 Ondansetron HCl (Zofran) 4 mg Q6H PRN PO NAUSEA 01/22/20 16:45 Oxycodone/ Acetaminophen (Percocet 5mg/ 325mg Tablet) 1 tab Q8HP PRN PO MILD/MODERATE PAIN (PS 1-7) 01/22/20 16:45 Oxycodone/ Acetaminophen (Percocet 5mg/ 325mg Tablet) 2 tab Q8HP PRN PO SEVERE PAIN (PS 8-10) 01/22/20 16:45 Pantoprazole Sodium (Protonix) 40 mg DAILY PO 01/23/20 09:00 01/23/20 09:27 Potassium Chloride (Micro-K Extencaps) 10 meq DAILY PO 01/23/20 09:00 01/23/20 09:28 Potassium Chloride (Micro-K Extencaps) 20 meq QHS PO 01/22/20 21:00 01/22/20 20:41 Pregabalin (Lyrica) 150 mg BID PO 01/22/20 21:00 01/23/20 09:27 Ropinirole HCl (Requip) 5 mg QHS PO 01/22/20 21:00 01/22/20 20:41 Rosuvastatin Calcium (Crestor) 20 mg QHS PO 01/22/20 21:00 01/22/20 20:41 Senna (Senokot) 2 tab BID PO 01/22/20 21:00 01/22/20 20:41 Sertraline HCl (Zoloft) 100 mg DAILY PO 01/23/20 09:00 01/23/20 09:26 Torsemide (Demadex) 40 mg QPM@1800 PO 01/22/20 18:00 01/22/20 17:28 Torsemide (Demadex) 100 mg DAILY PO 01/23/20 09:00 01/23/20 09:26 Vitamin D (Drisdol) 50,000 units Godfrey@09 PO 01/27/20 09:00 CLAIR PALOMARES MD Jan 23, 2020 15:21
[2020-01-23] MEDS: TORSEMIDE 20 MG TAB PO SCH (17:36)
[2020-01-23 20:00] VITALS: BP 145/73
[2020-01-23] MEDS: PERCOCET 5MG/325MG TAB PO PRN (20:51)
[2020-01-23] MEDS: ROSUVASTATIN 10 MG TAB (CRESTOR) PO SCH (20:52)
[2020-01-23] MEDS: rOPINIRole 2MG TAB PO SCH (20:53)
[2020-01-24 06:00] VITALS: BP 141/81
[2020-01-24] MEDS: NYSTATIN 100,000 UNITS/GM TOPICAL PWD 15 GM TOP SCH ×2 (09:00→20:11)
[2020-01-24] MEDS: FENOFIBRATE 145 MG TAB (TRICOR) PO SCH (09:18)
[2020-01-24] MEDS: SENNA 8.6 MG TAB (SENOKOT) PO SCH ×2 (09:19→20:08)
[2020-01-24] MEDS: SERTRALINE 100 MG TAB PO SCH (09:19)
[2020-01-24] MEDS: POTASSIUM CHLORIDE 10 MEQ SR TABLET PO SCH ×2 (09:19→20:08)
[2020-01-24] MEDS: CLOPIDOGREL 75 MG TAB PO SCH (09:19)
[2020-01-24] MEDS: TORSEMIDE 100 MG TAB PO SCH (09:20)
[2020-01-24] MEDS: PANTOPRAZOLE 40MG TAB (PROTONIX) PO SCH (09:20)
[2020-01-24] MEDS: allopurinoL 300 MG TAB PO SCH (09:20)
[2020-01-24] MEDS: PREGABALIN 75 MG CAP(LYRICA) PO SCH ×2 (09:20→20:08)
[2020-01-24] MEDS: ASPIRIN 81 MG ENTERIC TAB PO SCH (09:20)
--- NOTE | 2020-01-24 12:33 | IPNPDOC ---
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 R LE Pain Low back pain Fatigue and lack of energy SUBJECTIVE: This is a 74 year old hypertensive diabetic gentleman with polyarticular arthritis and reported history of narcolepsy who had been an inpatient and discharged for right knee hematoma wo was readmitted to acute care 01.19.2020 for worsening pain, difficulty ambulating and breakdown in home care situation. He notes about a month ago, he tripped on the small threshold to his home, injuring his right knee. He had been on anticoagulants previously and had some bleeding issues, was being maintained on ASA. His mobility compromise had diminished to no more than 20 ft at a time, limited by weakness and pain and instability and significant falls risk. Hewas admitted to comprehensive rehabilitation for strengthening, reconditioning and pain management and has begun various evaluations. Patient vacillates with feeling he needs to go home and having difficulty processing that he regain some strength and stability for gait, transfers and safe discharge home. Family discussion indicates their concern for his safety and inability to assist with getting him up off the floor if he falls again, potentially injuring himself severely. This morning he refused therapy, threatening to catch a cab home. Discussion with CM and team led to agreement to try a couple more days as hematoma resolving and strength returning with less quad inhibition. He heard someone say he was good to go and concretely took that to mean, home. He again has the understanding that if he participates with his greatest effort and the harder he works, the more likely he will be discharged sooner than later at optimal level of functional capabilities. PAST MEDICAL HISTORY: L3 compression fracture HNP Spinal Stenosis Cataracts Narcolepsy IA Afib HX GI Bleeding CKD III Renal Stone BPH Nocturia x 3/night Obesity Arthritis Gout Metabolic Syndrome Depression Anxiety CVA Cholelithiasis Nephrolithiasis LOGAN PAST SURGICAL HISTORY: S/P Left carotid endarterectomy S/P CABGx 3, harvest right LE Fx Left Knee ORIF Left ankle ORIF Hip Fx FUNCTIONAL STATUS: Patient is able to ambulate with contact-guard assistance. Restroom, condom cath discontinued in bladder training program begun. He has poor safety awareness and fatigues very easily. ALLERGIES: See Below MEDICATIONS: Reviewed, see below. REVIEW OF SYSTEMS: The following is a completed review of systems and has been reviewed. Review of systems otherwise unremarkable. REVIEW OF SYSTEMS: The following is a completed review of systems and has been reviewed. Review of systems otherwise unremarkable. PAIN: Patient self reports no pain. EYES: No recent vision changes. EARS, NOSE, & THROAT: No throat pain, or dysphagia, or rhinorrhea. CARDIOVASCULAR: Denies chest pain or palpitations. PULMONARY: Denies shortness of breath. GASTROINTESTINAL: Denies constipation/diarrhea. GENITOURINARY: BPH, continent MUSCULOSKELETAL: Polyarticular pain, worse RLE NEUROLOGICAL: neg HEMATOLOGICAL: .easy brusing, bleeding SKIN: .resolving hematoma right knee PSYCHIATRIC: Unremarkable. All other review of systems found to be negative OBJECTIVE: VITAL SIGNS: Please see below. GENERAL: Sleepy in AM. Mild distress. Seen throughout the day, seems a bit con fused. HEENT: Extraocular movements intact. CARDIOVASCULAR: Distant S1 S2. LUNGS: Clear to auscultation bilaterally. No wheezes. No rhonchi. ABDOMEN: Soft, nontender obese. Positive Normal active bowel sounds. NEUROLOGICAL: Cranial nerves II through XII grossly intact. Sensation intact all 4 extremities to touch. EXTREMITIES: 5/5 slip filler, elbow flexion, elbow extension, SKIN: multiple extensive deep ecchymoses entire right leg, fading, right upper arm, right dorsal knee. No breakdowns on feet, good capillary refill toes. 2+ right 1+ left peripheral edema. FUNCTIONAl STATUS: Contact-guard standby assistance. Ambulation using rolling walker 34 feet. Negotiating to his threshold with rolling walker, contact guard assistance for safety. LABORATORY DATA: Reviewed. Please see below. CBC, BMP, UA, INR unremarkable MICROBIOLOGY: Please see below. ASSESSMENT AND PLAN: Hematoma with prepatellar bursitis RLE Chronc Back pain L3 Compression fracture, HNP, DDD, Lumbar Stenosis CHF A fib CAD s/p CABG History CVA GERD Restless Legs Morbid Obesity DIAGNOSES This is a 74 year old hypertensive diabetic gentleman with polyarticular arthritis who had been an inpatient and discharged for right knee hematoma wo was readmitted to acute care 01.19.2020 for worsening pain, difficulty ambulating and breakdown in home care situation. He notes about a month ago, he tripped on the small threshold to his home, injuring his knee. He had been on anticoagulants previously and had some bleeding issues, was being maintained on ASA. His mobility compromise had diminished to no more than 20 ft at a time, limited by weakness and pain and instability and is a significant falls risk. He is admitted to comprehensive rehabilitation for strengthening, reconditioning and pain management. PLAN: 1. Rehab- PT/OT advance gait and ADls, strengthen/stretch/maintain ROM all 4 limbs. We'll continue to work on timing pain medication with therapy interventions to optimize possible capacity to participate. He has weakness in the lower extremities, probably from stenosis and local trauma, may benefit from bracing for the right knee/ankle. Pain management will be challenging. 2. Neuro- RLS, Polyradiculoneuropathy and spinal stenosis, Rx Lyrica, Requip, reported hx narcolepsy and hypersomnolent/some mild judgement/processing issues. Will have trial Ritalin, monitor VS and level alertness and see if this is helpful. Will need fu as an outpatient suggested neuropsych evelza. 3. Ortho- DJD R Knee, will wrap, consider topical voltaren gel for pain, however need to take care for use of NSAID + Asa in light of hematological issues, will discuss holding Plavix to see if we can get hold of the massive soft tissue bleeding he has sustained and may continue to sustain. Added Flector patch to reduce local inflammation and reduce MM inhibition. 4. Cardiac- hx of CAD with CABG, CHF, currently no symptoms, Torsemide -HTN -HLD- c/u rosuvastatin, fenofibrate 5. Resp -incentive spirometry, monitor for infection 6. Endo- metabolic syndrome, dietary education, low CHO, increased UBE recommended 7. - BPH 8. GI ppx- pantoprazole 9. Anxiety/depression Sertraline 10. Skin-nystatin powder fungal infections ANTICIPATED DISPOSITION home TIME SPENT: Chart Review, examination and documentation 30 minutes. This document is generated using speech recognition software which may result in grammatical, typographical and individual word errors. Allergies Coded Allergies: No Known Allergies (Verified , 03/02/05) Vital Signs Vital Signs Date Time Temp Pulse Resp B/P (MAP) Pulse Ox O2 Delivery O2 Flow Rate FiO2 01/24/20 06:00 96.7 69 18 141/81 (101) 99 Room Air Current Medications Current Medications Current Medications Medications (Trade) Dose Ordered Sig/Ricky Route PRN Reason Start Time Stop Time Status Last Admin Dose Admin Acetaminophen (Tylenol Tab) 650 mg Q6HP PO 01/22/20 16:45 01/25/20 06:00 Allopurinol (Zyloprim) 300 mg DAILY PO 01/23/20 09:00 01/24/20 09:20 Aspirin (Ecotrin) 81 mg DAILY PO 01/23/20 09:00 01/24/20 09:20 Clopidogrel Bisulfate (PLAVix) 75 mg DAILY PO 01/23/20 09:00 01/24/20 09:19 Fenofibrate (Tricor) 145 mg DAILY PO 01/23/20 09:00 01/24/20 09:18 Nitroglycerin (Nitrostat (1/ 150)) 0.4 mg Q5MP PRN SL CHEST PAIN 01/22/20 16:45 Nystatin (Mycostatin Powder, Nystop) apply to affected areas R Leg BID TOP 01/22/20 21:00 01/23/20 20:54 Ondansetron HCl (Zofran) 4 mg Q6H PRN PO NAUSEA 01/22/20 16:45 Oxycodone/ Acetaminophen (Percocet 5mg/ 325mg Tablet) 1 tab Q8HP PRN PO MILD/MODERATE PAIN (PS 1-7) 01/22/20 16:45 01/23/20 20:51 Oxycodone/ Acetaminophen (Percocet 5mg/ 325mg Tablet) 2 tab Q8HP PRN PO SEVERE PAIN (PS 8-10) 01/22/20 16:45 Pantoprazole Sodium (Protonix) 40 mg DAILY PO 01/23/20 09:00 01/24/20 09:20 Potassium Chloride (Micro-K Extencaps) 10 meq DAILY PO 01/23/20 09:00 01/24/20 09:19 Potassium Chloride (Micro-K Extencaps) 20 meq QHS PO 01/22/20 21:00 01/23/20 20:52 Pregabalin (Lyrica) 150 mg BID PO 01/22/20 21:00 01/24/20 09:20 Ropinirole HCl (Requip) 5 mg QHS PO 01/22/20 21:00 01/23/20 20:53 Rosuvastatin Calcium (Crestor) 20 mg QHS PO 01/22/20 21:00 01/23/20 20:52 Senna (Senokot) 2 tab BID PO 01/22/20 21:00 01/24/20 09:19 Sertraline HCl (Zoloft) 100 mg DAILY PO 01/23/20 09:00 01/24/20 09:19 Torsemide (Demadex) 40 mg QPM@1800 PO 01/22/20 18:00 01/23/20 17:36 Torsemide (Demadex) 100 mg DAILY PO 01/23/20 09:00 01/24/20 09:20 Vitamin D (Drisdol) 50,000 units Godfrey@09 PO 01/27/20 09:00 CLAIR PALOMARES MD Jan 24, 2020 12:33
[2020-01-24 14:00] VITALS: BP 152/85
[2020-01-24] MEDS: METHYLPHENIDATE 5 MG TAB PO SCH (15:15)
[2020-01-24] MEDS: TORSEMIDE 20 MG TAB PO SCH (17:16)
[2020-01-24] MEDS: DICLOFENAC EPOLAMINE 1.3 % PATCH TOP SCH ×2 (17:16→20:09)
[2020-01-24] MEDS: rOPINIRole 2MG TAB PO SCH (20:07)
[2020-01-24] MEDS: ROSUVASTATIN 10 MG TAB (CRESTOR) PO SCH (20:08)
[2020-01-24 20:15] VITALS: BP 140/72
[2020-01-24] MEDS: PERCOCET 5MG/325MG TAB PO PRN (23:08)
[2020-01-25 05:53] VITALS: BP 149/79
[2020-01-25] MEDS: PANTOPRAZOLE 40MG TAB (PROTONIX) PO SCH (07:54)
[2020-01-25] MEDS: FENOFIBRATE 145 MG TAB (TRICOR) PO SCH (07:54)
[2020-01-25] MEDS: SENNA 8.6 MG TAB (SENOKOT) PO SCH (07:54)
[2020-01-25] MEDS: POTASSIUM CHLORIDE 10 MEQ SR TABLET PO SCH (07:55)
[2020-01-25] MEDS: CLOPIDOGREL 75 MG TAB PO SCH (07:55)
[2020-01-25] MEDS: allopurinoL 300 MG TAB PO SCH (07:55)
[2020-01-25] MEDS: SERTRALINE 100 MG TAB PO SCH (07:55)
[2020-01-25] MEDS: TORSEMIDE 100 MG TAB PO SCH (07:55)
[2020-01-25] MEDS: ASPIRIN 81 MG ENTERIC TAB PO SCH (07:56)
[2020-01-25] MEDS: PREGABALIN 75 MG CAP(LYRICA) PO SCH (07:56)
[2020-01-25] MEDS: METHYLPHENIDATE 5 MG TAB PO SCH (07:56)
[2020-01-25] MEDS: DICLOFENAC EPOLAMINE 1.3 % PATCH TOP SCH (07:57)
[2020-01-25] MEDS: NYSTATIN 100,000 UNITS/GM TOPICAL PWD 15 GM TOP SCH (07:57)
[2020-01-25] MEDS ORDERED: METHYLPHENIDATE 5 MG TAB PO SCH (12:30)
--- NOTE | 2020-01-25 12:52 | DS.PDOC ---
PM&R Discharge Summary [facility] Discharge Note DATE OF ADMISSION: Jan 22, 2020 at 15:45 DATE OF DISCHARGE: 01.25.2020 DISCHARGE DIAGNOSES: Hematoma with prepatellar bursitis RLE Chronc Back pain L3 Compression fracture, HNP, DDD, Lumbar Stenosis CHF A fib CAD s/p CABG History CVA GERD Restless Legs Morbid Obesity PAST MEDICAL HISTORY: L3 compression fracture HNP Spinal Stenosis Cataracts Narcolepsy OK Afib HX GI Bleeding CKD III Renal Stone BPH Nocturia x 3/night Obesity Arthritis Gout Metabolic Syndrome Depression Anxiety CVA Cholelithiasis Nephrolithiasis LOGAN PAST SURGICAL HISTORY: S/P Left carotid endarterectomy S/P CABGx 3, harvest right LE Fx Left Knee ORIF Left ankle ORIF Hip Fx CHIEF COMPLAINT: . R LE Pain RLE Weakness Low back pain Fatigue and lack of energy HOSPITAL COURSE: This is a 74 year old hypertensive diabetic gentleman with polyarticular arthritis and reported history of narcolepsy who had been an acute care inpatient 01/12/2020 and discharged for right knee hematoma after a fall who was readmitted to acute care 01.19.2020 for worsening pain, difficulty ambulating and breakdown in home care situation. No fracture of RLE on imaging, however is s/p femoral stent and vein harvest for prior CABG. He notes about a month ago, he tripped on the small threshold to his home, injuring his right knee. He had been on anticoagulants previously and had some bleeding issues, was being maintained on ASA. His mobility compromise had diminished to no more than 20 ft at a time, limited by weakness and pain and instability and significant falls risk. He was admitted to comprehensive rehabilitation for strengthening, reconditioning and pain management and has begun various evaluations. Hematoma drained effusively from right knee, changed from foam dressing which patient disliked, to tagaderm permitting visualization and still protecting from shearing forces with dressing/bed mobility. Patient vacillated with feeling need to go home and having difficulty processing that he must regain some strength and stability for gait, transfers and safe discharge home. Family discussion indicated their concern for his safety and inability to assist with getting him up off the floor if he falls again, potentially injuring himself severely. He repeatedly refused therapy, threatening to catch a cab home only making it as agreed with minimal goals achieved by the end of the week for discharge today. The knee remains warm tender, ecchymotic, but he was able to achieve short distance ambulation and tranfers with CGA. Ritalin was going to be added to see if that helped level of alertness/initiation in light of history of Narcolepsy, lack of initiation but not able to be assessed. Further neurological workup and follow-up may be warranted. FUNCTIONAL STATUS: Patient is able to ambulate 35 and transfer with standby to contact-guard assistance. He has poor safety awareness and fatigues very easily. ALLERGIES: See Below MEDICATIONS: Reviewed, see below. OBJECTIVE: VITAL SIGNS: Please see below. GENERAL: Sleepy in AM. Mild distress. Seen throughout the day, seems at times a bit confused. HEENT: Extraocular movements intact. CARDIOVASCULAR: Distant S1 S2. LUNGS: Clear to auscultation bilaterally. No wheezes. No rhonchi. ABDOMEN: Soft, nontender obese. Positive Normal active bowel sounds. NEUROLOGICAL: Cranial nerves II through XII grossly intact. Sensation intact all 4 extremities to touch. EXTREMITIES: 5/5 exploration driller, elbow flexion, elbow extension, SKIN: multiple extensive deep ecchymoses entire right leg, fading, right upper arm, right dorsal knee. No breakdowns on feet, good capillary refill toes. 2+ right 1+ left peripheral edema. Large area prior hematoma right medial peripatellar region down through upper tibial region. Entire area warm, swollen. But better able to extend right leg with 4/5 strength by time of discharge, was about 2/5 on admission. LABORATORY DATA: Reviewed. Please see below. CBC, BMP, UA, INR unremarkable IMAGING REVIEW: 01.19.20 CT Angio : Mild anterolisthesis of L4 on L5. Age indeterminate compression deformity of L3. Moderate to severe central spinal stenosis L2-L3, L3-L4, and severe central spinal stenosis at L4-L5 Osteoporosis 01.19.20 XRAY Right knee suprapatellar bursal effusion. 01.12.20 Left leg old healed fracture deformity of the left proximal fibular diaphysis. 01.12.[address] Multilevel degenerative disc disease and facet arthropathy. Multilevel central and foraminal stenosis. 01.12.20 Femur Xray There is a vascular stent in the common femoral artery. There are some vascular calcifications in the distal thigh and metallic clips from presumed vein graft harvest in the distal medial thigh and proximal calf. There is prominent soft tissue swelling in a collection in the prepatellar r egion. No definite joint effusion. No fracture about the distal femur and knee. Prominent prepatellar traumatic bursitis. No visible fracture, avulsion or focal lesion. There surgical clips from prior vein graft harvest in the distal of thigh and upper calf medially and a vascular stent over the common femoral artery location. UA negative ANTICIPATED DISPOSITION home with follow up by H/H PT/OT and PMD TIME SPENT: Chart Review, examination and documentation 35 minutes. This document is generated using speech recognition software which may result in grammatical, typographical and individual word errors. Vital Signs/I&O Vital Sign - Last 24 Hours 01/24/20 01/24/20 01/24/20 01/24/20 14:00 20:15 23:08 23:50 Temp 97.2 97.6 Pulse 85 88 Resp 18 18 18 18 B/P (MAP) 152/85 (107) 140/72 (94) Pulse Ox 100 96 O2 Delivery Room Air Room Air 01/25/20 01/25/20 05:53 08:10 Temp 97.7 Pulse 86 Resp 18 18 B/P (MAP) 149/79 (102) Pulse Ox 97 O2 Delivery Room Air Room Air I&O- Last 24 Hours up to 6 AM 01/25/20 06:00 Intake Total 2260 ml Output Total 1500 ml Balance 760 ml Medications Medications Current Medications Medications (Trade) Dose Ordered Sig/Ricky Route PRN Reason Start Time Stop Time Status Last Admin Dose Admin Acetaminophen (Tylenol Tab) 650 mg Q6HP PO 01/22/20 16:45 01/25/20 06:00 DC Allopurinol (Zyloprim) 300 mg DAILY PO 01/23/20 09:00 01/25/20 07:55 Aspirin (Ecotrin) 81 mg DAILY PO 01/23/20 09:00 01/25/20 07:56 Clopidogrel Bisulfate (PLAVix) 75 mg DAILY PO 01/23/20 09:00 01/25/20 07:55 Diclofenac Epolamine (Flector 1.3%) 1 patch Q12H TOP 01/24/20 09:00 01/25/20 07:57 Fenofibrate (Tricor) 145 mg DAILY PO 01/23/20 09:00 01/25/20 07:54 Methylphenidate HCl (Ritalin) 5 mg DAILY PO 01/24/20 15:15 01/25/20 07:56 Methylphenidate HCl (Ritalin) 5 mg DAILY PO 01/25/20 12:30 Cancel Nitroglycerin (Nitrostat (1/ 150)) 0.4 mg Q5MP PRN SL CHEST PAIN 01/22/20 16:45 Nystatin (Mycostatin Powder, Nystop) apply to affected areas R Leg BID TOP 01/22/20 21:00 01/25/20 07:57 Ondansetron HCl (Zofran) 4 mg Q6H PRN PO NAUSEA 01/22/20 16:45 Oxycodone/ Acetaminophen (Percocet 5mg/ 325mg Tablet) 1 tab Q8HP PRN PO MILD/MODERATE PAIN (PS 1-7) 01/22/20 16:45 01/24/20 23:08 Oxycodone/ Acetaminophen (Percocet 5mg/ 325mg Tablet) 2 tab Q8HP PRN PO SEVERE PAIN (PS 8-10) 01/22/20 16:45 Pantoprazole Sodium (Protonix) 40 mg DAILY PO 01/23/20 09:00 01/25/20 07:54 Potassium Chloride (Micro-K Extencaps) 10 meq DAILY PO 01/23/20 09:00 01/25/20 07:55 Potassium Chloride (Micro-K Extencaps) 20 meq QHS PO 01/22/20 21:00 01/24/20 20:08 Pregabalin (Lyrica) 150 mg BID PO 01/22/20 21:00 01/25/20 07:56 Ropinirole HCl (Requip) 5 mg QHS PO 01/22/20 21:00 01/24/20 20:07 Rosuvastatin Calcium (Crestor) 20 mg QHS PO 01/22/20 21:00 01/24/20 20:08 Senna (Senokot) 2 tab BID PO 01/22/20 21:00 01/25/20 07:54 Sertraline HCl (Zoloft) 100 mg DAILY PO 01/23/20 09:00 01/25/20 07:55 Torsemide (Demadex) 40 mg QPM@1800 PO 01/22/20 18:00 01/24/20 17:16 Torsemide (Demadex) 100 mg DAILY PO 01/23/20 09:00 01/25/20 07:55 Vitamin D (Drisdol) 50,000 units Godfrey@09 PO 01/27/20 09:00 Scheduled Allopurinol (Zyloprim) 300 Mg Tablet, 300 MG PO DAILY, (Reported) Aspirin (Aspirin EC) 81 Mg Tablet.dr, 81 MG PO DAILY, (Reported) Clopidogrel Bisulfate (Clopidogrel) 75 Mg Tablet, 75 MG PO DAILY, (Reported) Ergocalciferol (Vitamin D2) (Vitamin D2) 50,000 Units Cap, 50,000 UNITS PO QWEEK, (Reported) tuesday Fenofibrate (Fenofibrate) 160 Mg Tab, 160 MG PO DAILY, (Reported) Nystatin (Nystatin Powder) 15 Gm Powder, 1 APPLIC TOP BID, (Reported) APPLY TO AFFCETED AREA ON RIGHT LEG Pantoprazole Sodium (Pantoprazole Sodium) 40 Mg Tablet.dr, 40 MG PO DAILY, (Reported) Potassium Chloride (Potassium Chloride) 10 Meq Tab, 20 MEQ PO QHS, (Reported) Potassium Chloride (K-Tab ER) 10 Meq Tablet.er, 10 MEQ PO QAM, (Reported) Pregabalin (Pregabalin) 150 Mg Capsule, 150 MG PO BID, (Reported) Ropinirole HCl (Ropinirole HCl) 5 Mg Tablet, 5 MG PO QHS, (Reported) Rosuvastatin Calcium (Rosuvastatin Calcium) 20 Mg Tablet, 20 MG PO QHS, (Reported) Sennosides/Docusate Sodium (Senna Plus Tablet) 1 Each Tablet, 2 TAB PO BID Sertraline HCl (Sertraline HCl) 100 Mg Tab, 100 MG PO DAILY, (Reported) Torsemide (Torsemide) 100 Mg Tab, 100 MG PO QAM, (Reported) Torsemide (Torsemide) 10 Mg Tablet, 40 MG PO QPM, (Reported) DINNERTIME Scheduled PRN Hydrocodone/Acetaminophen (Hydrocodone-Acetamin 10-325 mg) 1 Each Tablet, 1 TAB PO TIDP PRN for pain, (Reported) Nitroglycerin (Nitroglycerin) 0.4 Mg Sub, 0.4 MG SL NITRO PRN for CHEST PAIN, (Reported) Allergies Coded Allergies: No Known Allergies (Verified , 03/02/05) CLAIR PALOMARES MD Jan 25, 2020 12:52
[2020-01-25 14:00] VITALS: BP 156/79
[2020-01-27] MEDS ORDERED: VITAMIN D 50,000 UNITS CAPSULE (ERGOCALCIFEROL 1.25MG) PO SCH (09:00)
== END 2020-01-25 16:50 | disposition home health service (06) | DRG 948 ==
LOC: M PM&R 15:45
PROVIDERS: ADMIT Physical Medicine & Rehabilitation; ATTEND Physical Medicine & Rehabilitation
DX: R53.1 Weakness (principal); M25.561 Pain in right knee; S80.01XD Contusion of right knee, subsequent encounter; M70.41 Prepatellar bursitis, right knee; W18.09XD Striking against other object with subsequent fall, subsequent encounter; Y92.009 Unspecified place in unspecified non-institutional (private) residence as the place of occurrence of the external cause; M54.9 Dorsalgia, unspecified; I50.9 Heart failure, unspecified; I48.91 Unspecified atrial fibrillation; I25.10 Atherosclerotic heart disease of native coronary artery without angina pectoris; K21.9 Gastro-esophageal reflux disease without esophagitis; G25.81 Restless legs syndrome; E66.01 Morbid (severe) obesity due to excess calories; Z86.73 Personal history of transient ischemic attack (TIA), and cerebral infarction without residual deficits; M48.061 Spinal stenosis, lumbar region without neurogenic claudication; E11.22 Type 2 diabetes mellitus with diabetic chronic kidney disease; Z74.09 Other reduced mobility; R26.89 Other abnormalities of gait and mobility; N40.1 Benign prostatic hyperplasia with lower urinary tract symptoms; M51.26 Other intervertebral disc displacement, lumbar region; I25.2 Old myocardial infarction; R35.1 Nocturia; N18.30 Chronic kidney disease, stage 3 unspecified; M10.9 Gout, unspecified; F32.9 Major depressive disorder, single episode, unspecified; F41.9 Anxiety disorder, unspecified; G47.33 Obstructive sleep apnea (adult) (pediatric); G47.419 Narcolepsy without cataplexy; Z95.1 Presence of aortocoronary bypass graft; M15.9 Polyosteoarthritis, unspecified; Z79.82 Long term (current) use of aspirin; Z79.899 Other long term (current) drug therapy

== ENCOUNTER 2020-02-17 16:26 | Emergency (ER) | payer MEDICARE, BC ==
[~2020-02-17] VITALS: Ht 172.7 cm; Wt 108.2 kg
[2020-02-17 17:29] LABS: BASO % 0.6 % (0.0-1.0); EOS # 0.1 10^3/uL (0.0-0.5); EOS % 2.1 % (0.0-3.0); HEMATOCRIT 44.5 % (42.0-52.0); HEMOGLOBIN 14.1 g/dl (13.5-17.5); LYMPH # 1.5 10^3/uL (1.5-5.0); LYMPH % 24.1 % (24.0-44.0); MEAN CORPUSCULAR HEMOGLOBIN 30.5 pg (27.0-33.0); MEAN CORPUSCULAR HGB CONC 31.7 g/dl (32.0-36.5); MEAN CORPUSCULAR VOLUME 96.1 fl (80.0-96.0); MONO # 0.5 10^3/uL (0.0-0.8); MONO % 8.4 % (0.0-5.0); NEUTROPHILS # 4.1 10^3/uL (1.5-8.5); NEUTROPHILS % 64.3 % (36.0-66.0); RED BLOOD COUNT 4.63 10^6/uL (4.30-6.10); WHITE BLOOD COUNT 6.3 10^3/uL (4.0-10.0)
--- NOTE | 2020-02-17 17:45 | REP ---
INDICATION: Altered Mental Status. COMPARISON: 10/15/2017. TECHNIQUE: SINGLE PORTABLE AP VIEW OF THE CHEST WAS PERFORMED. FINDINGS: There is no acute infiltrate. The heart is at the upper limits of normal in size. The mediastinal silhouette is unremarkable. Multiple sternal wires are present. IMPRESSION: NO ACUTE PULMONARY DISEASE. <Electronically signed by Jim Torres > 02/17/20 [id number]
[2020-02-17 17:59] LABS: ALBUMIN 3.5 GM/DL (3.2-5.2); ALT/SGPT 34 U/L (12-78); BILIRUBIN,DIRECT 0.7 MG/DL (0.0-0.2); BILIRUBIN,TOTAL 1.4 MG/DL (0.2-1.0); BLOOD UREA NITROGEN 15 MG/DL (7-18); CALCIUM LEVEL 8.9 MG/DL (8.8-10.2); CARBON DIOXIDE LEVEL 30 MEQ/L (21-32); CHLORIDE LEVEL 105 MEQ/L (98-107); CK-MB VALUE MASS 1.6 NG/ML (<3.6); CPK CREATINE PHOSPHOKINASE 73 U/L (39-308); CREATININE FOR GFR 1.07 MG/DL (0.70-1.30); GLOMERULAR FILTRATION RATE > 60.0 (>42); GLUCOSE, FASTING 93 MG/DL (70-100); MB/CK RELATIVE INDEX 2.19 (< OR =4); POTASSIUM SERUM 3.6 MEQ/L (3.5-5.1); SODIUM LEVEL 142 MEQ/L (136-145); THYROID STIMULATING HORMONE 0.889 uIU/ML (0.358-3.740); TOTAL PROTEIN 7.6 GM/DL (6.4-8.2); TROPONIN I 0.02 NG/ML (< 0.10)
[2020-02-17] MEDS ORDERED: NORCO, ANEXSIA 5/325MG TABLET (HYDROcodone/ACETAMINOPHEN) PO ONE (18:00)
--- NOTE | 2020-02-17 18:14 | ECGEPIP ---
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
[2020-02-17 18:25] LABS: PLATELET COUNT, AUTOMATED 93 10^3/uL (150-450)
[2020-02-17] MEDS ORDERED: SPIR-10 PO (20:26)
[2020-02-17 21:37] VITALS: BP 132/60
== END 2020-02-17 22:32 | disposition home or self-care (01) ==
LOC: EDBD 16:26 → M ED 16:26 → CANBEDREQ 20:56 → M ED 22:32
DX: R53.1 Weakness (principal); R26.81 Unsteadiness on feet; R94.31 Abnormal electrocardiogram [ECG] [EKG]; I50.9 Heart failure, unspecified; I25.2 Old myocardial infarction; Z86.73 Personal history of transient ischemic attack (TIA), and cerebral infarction without residual deficits; E78.5 Hyperlipidemia, unspecified; K21.9 Gastro-esophageal reflux disease without esophagitis; N18.30 Chronic kidney disease, stage 3 unspecified; F41.9 Anxiety disorder, unspecified; Z79.82 Long term (current) use of aspirin; Z79.899 Other long term (current) drug therapy

== ENCOUNTER → 2020-04-15 | Outpatient (REF) | payer MEDICARE, BC | LOC: M LAB REF 14:24 | PROVIDERS: ATTEND Dermatology | DX: D04.39 Carcinoma in situ of skin of other parts of face (principal); L90.5 Scar conditions and fibrosis of skin ==

== ENCOUNTER → 2020-06-02 | Outpatient (CLI) | payer MEDICARE, BC ==
[~2020-06-02] MED LIST changes: +ASPI-569 PO; -ASPI81TAEC PO
[2020-06-02 14:23] LABS: HEMATOCRIT 43.8 % (42.0-52.0); HEMOGLOBIN 13.7 g/dl (13.5-17.5); MEAN CORPUSCULAR HEMOGLOBIN 29.1 pg (27.0-33.0); MEAN CORPUSCULAR HGB CONC 31.3 g/dl (32.0-36.5); RED BLOOD COUNT 4.71 10^6/uL (4.30-6.10); WHITE BLOOD COUNT 5.1 10^3/uL (4.0-10.0)
[2020-06-02 14:56] LABS: ALBUMIN 3.7 GM/DL (3.2-5.2); ALT/SGPT 34 U/L (12-78); BILIRUBIN,TOTAL 1.3 MG/DL (0.2-1.0); BLOOD UREA NITROGEN 26 MG/DL (7-18); CALCIUM LEVEL 9.4 MG/DL (8.8-10.2); CARBON DIOXIDE LEVEL 32 MEQ/L (21-32); CHLORIDE LEVEL 104 MEQ/L (98-107); CHOLESTEROL LEVEL 136 MG/DL (<200); CHOLESTEROL RISK RATIO 5.037 (<5); CREATININE FOR GFR 1.23 MG/DL (0.70-1.30); GLOMERULAR FILTRATION RATE > 60.0 (>42); GLUCOSE, FASTING 109 MG/DL (70-100); HDL CHOLESTEROL 27 MG/DL (>40); LDL CHOLESTEROL 81 MG/DL (<100); MAGNESIUM LEVEL 2.1 MG/DL (1.8-2.4); NON-HDL-C 109 MG/DL; POTASSIUM SERUM 3.5 MEQ/L (3.5-5.1); SODIUM LEVEL 140 MEQ/L (136-145); TOTAL PROTEIN 7.8 GM/DL (6.4-8.2); TRIGLYCERIDES LEVEL 139 MG/DL (<150)
[2020-06-02 15:20] LABS: PLATELET COUNT, AUTOMATED 64 10^3/uL (150-450)
--- NOTE | 2020-06-02 18:57 | REP ---
INDICATION: STENOSIS *LABS 1ST, US 2ND* COMPARISON: December 16, 2016.. TECHNIQUE: Real-time ultrasound evaluation and duplex Doppler interrogation of the extracranial carotid vasculature is performed. FINDINGS: Antegrade flow is observed in both vertebral arteries. Right carotid: The right common carotid artery shows diffuse intimal thickening but is otherwise unremarkable. There moderate mixed plaquing in the right carotid bulb and proximal ICA on two-dimensional scanning. There is shadowing is some of the ICA from calcific plaquing. Color flow and spectral Doppler interrogation are unremarkable on the right. Velocity chart right carotid: Right CCA PSV: 88 cm/S Right ICA PSV: 84 cm/S Right ICA EDV: 23 cm/S Right ECA PSV: 87 cm/S Right ICA/CCA ratio: 1.0 Left carotid: The left common carotid artery shows diffuse intimal thickening but is otherwise unremarkable. There is mild mixed plaquing in the left carotid bulb and proximal ICA on two-dimensional scanning. Color flow and spectral Doppler interrogation are unremarkable on the left. Velocity chart left carotid: Left CCA PSV: 57 cm/S Left ICA PSV: 71 cm/S Left ICA EDV: 20 cm/S Left ECA PSV: 101 cm/S Left ICA/CCA ratio: 1.2 IMPRESSION: Less than 50% category narrowing in the right internal carotid artery by Doppler velocity criteria. Less than 50% category narrowing in the left ICA by Doppler velocity criteria. <Electronically signed by Raf Quijano > 06/02/20 [id number]
== END ==
LOC: M RAD 13:06
PROVIDERS: ATTEND Physician Assistant
DX: I65.23 Occlusion and stenosis of bilateral carotid arteries (principal); I25.10 Atherosclerotic heart disease of native coronary artery without angina pectoris; I50.32 Chronic diastolic (congestive) heart failure; I48.3 Typical atrial flutter; I48.0 Paroxysmal atrial fibrillation; E78.2 Mixed hyperlipidemia

== ENCOUNTER → 2020-07-18 | Outpatient (REF) | payer MEDICARE, BC ==
[2020-07-21 23:11] LABS: PSA TOTAL <0.1 ng/mL (0.0-4.0)
== END ==
LOC: M LAB REF 17:18
PROVIDERS: ATTEND Nurse Practitioner Family
DX: R53.83 Other fatigue (principal); N40.1 Benign prostatic hyperplasia with lower urinary tract symptoms; R97.20 Elevated prostate specific antigen [PSA]

== ENCOUNTER → 2020-10-28 | Outpatient (REF) | payer MEDICARE, BC ==
[~2020-10-28] MED LIST changes: +ERGO500029 PO; -LISI2.5T2 PO; +LISI2.5T9 PO; -VITA50005 PO
[2020-10-28 14:52] LABS: BASO # 0.1 10^3/uL (0.0-0.2); BASO % 0.6 % (0.0-1.0); EOS # 0.4 10^3/uL (0.0-0.5); EOS % 3.5 % (0.0-3.0); HEMATOCRIT 35.6 % (42.0-52.0); HEMOGLOBIN 11.4 g/dl (13.5-17.5); LYMPH # 2.2 10^3/uL (1.5-5.0); LYMPH % 20.1 % (24.0-44.0); MEAN CORPUSCULAR HEMOGLOBIN 28.9 pg (27.0-33.0); MEAN CORPUSCULAR VOLUME 90.1 fl (80.0-96.0); MONO % 8.7 % (2.0-8.0); NEUTROPHILS # 7.3 10^3/uL (1.5-8.5); NEUTROPHILS % 66.7 % (36.0-66.0); PLATELET COUNT, AUTOMATED 124 10^3/uL (150-450); RED BLOOD COUNT 3.95 10^6/uL (4.30-6.10)
[2020-10-28 15:20] LABS: CALCIUM LEVEL 8.1 MG/DL (8.8-10.2); CREATININE FOR GFR 1.58 MG/DL (0.70-1.30); GLOMERULAR FILTRATION RATE 45.5 (>42); MAGNESIUM LEVEL 1.7 MG/DL (1.8-2.4); POTASSIUM SERUM 3.5 MEQ/L (3.5-5.1)
== END ==
LOC: M LAB REF 14:20
PROVIDERS: ATTEND Family Medicine
DX: N18.30 Chronic kidney disease, stage 3 unspecified (principal); I50.9 Heart failure, unspecified; R53.2 Functional quadriplegia; S22.43XS Multiple fractures of ribs, bilateral, sequela; G47.33 Obstructive sleep apnea (adult) (pediatric); G25.81 Restless legs syndrome; I10 Essential (primary) hypertension

== ENCOUNTER 2020-11-19 16:21 | Inpatient (IN) | payer MEDICARE, BC ==
[~2020-11-19] VITALS: Ht 175.3 cm; Wt 101.2 kg
[2020-11-19] MEDS ORDERED: FERR325T3 PO (19:34)
[2020-11-19 19:51] LABS: BASO # 0.1 10^3/uL (0.0-0.2); BASO % 0.5 % (0.0-1.0); EOS # 0.3 10^3/uL (0.0-0.5); EOS % 1.9 % (0.0-3.0); HEMATOCRIT 40.3 % (42.0-52.0); LYMPH # 2.1 10^3/uL (1.5-5.0); LYMPH % 15.3 % (24.0-44.0); MEAN CORPUSCULAR HGB CONC 32.3 g/dl (32.0-36.5); MEAN CORPUSCULAR VOLUME 86.9 fl (80.0-96.0); MONO % 7.1 % (2.0-8.0); NEUTROPHILS # 10.4 10^3/uL (1.5-8.5); NEUTROPHILS % 74.8 % (36.0-66.0); PLATELET COUNT, AUTOMATED 134 10^3/uL (150-450); RED BLOOD COUNT 4.64 10^6/uL (4.30-6.10); WHITE BLOOD COUNT 13.8 10^3/uL (4.0-10.0)
[2020-11-19 20:21] LABS: ALBUMIN 2.1 GM/DL (3.2-5.2); ALT/SGPT 24 U/L (12-78); BILIRUBIN,DIRECT 1.1 MG/DL (0.0-0.2); BILIRUBIN,TOTAL 1.9 MG/DL (0.2-1.0); BLOOD UREA NITROGEN 37 MG/DL (7-18); CALCIUM LEVEL 9.1 MG/DL (8.8-10.2); CARBON DIOXIDE LEVEL 30 MEQ/L (21-32); CHLORIDE LEVEL 96 MEQ/L (98-107); CK-MB VALUE MASS 2.6 NG/ML (<3.6); CPK CREATINE PHOSPHOKINASE 46 U/L (39-308); CREATININE FOR GFR 1.91 MG/DL (0.70-1.30); GLOMERULAR FILTRATION RATE 36.6 (>42); GLUCOSE, FASTING 105 MG/DL (70-100); LIPASE 100 U/L (73-393); MB/CK RELATIVE INDEX 5.65 (< OR =4); POTASSIUM SERUM 3.7 MEQ/L (3.5-5.1); SODIUM LEVEL 135 MEQ/L (136-145); TOTAL PROTEIN 6.9 GM/DL (6.4-8.2); TROPONIN I 0.04 NG/ML (< 0.10)
[2020-11-19 20:28] LABS: INR 1.18; PROTHROMBIN TIME 15.4 SECONDS (12.7-14.5)
[2020-11-19 22:20] LABS: RSV AMPLIFICATION NEGATIVE (NEGATIVE)
[2020-11-19] MEDS ORDERED: FUROSEMIDE 100MG/10ML VIAL (J1940) IV ONE (22:25)
[2020-11-19 22:41] LABS: PARTIAL THROMBOPLASTIN TIME 49.7 SECONDS (25.9-37.0)
[2020-11-19] MEDS ORDERED: ALLO300T2 PO (23:09)
[2020-11-19] MEDS ORDERED: DILT120C31 PO (23:09)
[2020-11-19] MEDS ORDERED: HOME MED LIST COMPLETE! XX SCH (23:10)
[2020-11-19 23:36] LABS: VITAMIN B12 LEVEL > 2000 PG/ML (247-911)
[2020-11-19 23:37] LABS: FOLATE 4.8 NG/ML (>5.4)
[2020-11-19 23:46] LABS: HEPATITIS B SURFACE ANTIGEN NEGATIVE (NEGATIVE)
[2020-11-19] MEDS: HEPARIN SOD (PORCINE) 5000UNITS/ML 1ML VIAL/SYRINGE SC SCH (23:47)
[2020-11-20] VITALS (12 sets, daily range): BP systolic 102–142; BP diastolic 53–79
[2020-11-20 00:14] LABS: HEPATITIS B CORE ANTIBODY IGM NEGATIVE (NEGATIVE); HEPATITIS C VIRUS ABY INDEX 0.1 INDEX (<0.8)
[2020-11-20 00:35] LABS: FERRITIN 220 NG/ML (26-388); IRON (FE) 69 UG/DL (65-175); PERCENT SATURATION 25.7 % (19.7-50.0); TOTAL IRON BINDING CAPACITY 268 UG/DL (250-450)
[2020-11-20] MEDS: METOPROLOL 5 MG/5 ML VIAL IV SCH ×5 (01:17→23:52)
[2020-11-20 05:10] LABS: BASO % 0.4 % (0.0-1.0); EOS # 0.2 10^3/uL (0.0-0.5); EOS % 1.8 % (0.0-3.0); HEMATOCRIT 34.5 % (42.0-52.0); HEMOGLOBIN 11.3 g/dl (13.5-17.5); LYMPH # 1.9 10^3/uL (1.5-5.0); LYMPH % 16.8 % (24.0-44.0); MEAN CORPUSCULAR HEMOGLOBIN 28.2 pg (27.0-33.0); MEAN CORPUSCULAR HGB CONC 32.8 g/dl (32.0-36.5); MONO # 0.9 10^3/uL (0.0-0.8); MONO % 7.7 % (2.0-8.0); NEUTROPHILS # 8.3 10^3/uL (1.5-8.5); NEUTROPHILS % 72.7 % (36.0-66.0); PLATELET COUNT, AUTOMATED 104 10^3/uL (150-450); RED BLOOD COUNT 4.01 10^6/uL (4.30-6.10); WHITE BLOOD COUNT 11.4 10^3/uL (4.0-10.0)
[2020-11-20 05:31] LABS: ALBUMIN 2.4 GM/DL (3.2-5.2); CALCIUM LEVEL 8.7 MG/DL (8.8-10.2); CK-MB VALUE MASS 1.8 NG/ML (<3.6); CREATININE FOR GFR 1.84 MG/DL (0.70-1.30); GLOMERULAR FILTRATION RATE 38.2 (>42); MAGNESIUM LEVEL 2.1 MG/DL (1.8-2.4); POTASSIUM SERUM 3.7 MEQ/L (3.5-5.1); TOTAL PROTEIN 6.2 GM/DL (6.4-8.2); TROPONIN I 0.04 NG/ML (< 0.10)
[2020-11-20] MEDS ORDERED: PREVNAR 13 VACCINE SYRINGE IM ONE (09:00)
[2020-11-20] MEDS: HEPARIN SOD (PORCINE) 5000UNITS/ML 1ML VIAL/SYRINGE SC SCH ×2 (09:00→21:22)
[2020-11-20] MEDS ORDERED: PANTOPRAZOLE 40MG TAB (PROTONIX) PO SCH (09:00)
[2020-11-20] MEDS ORDERED: FLUBLOK(EGG FREE)(QUAD)INFLUENZA VACC 0.5ML SYRINGE 18YRS & OLDER IM ONE (09:00)
[2020-11-20] MEDS ORDERED: PANTOPRAZOLE 40MG VIAL (C9113 PER 1) IV SCH (09:00)
[2020-11-20] MEDS ORDERED: SPIRONOLACTONE 25 MG TAB PO SCH (09:00)
[2020-11-20] MEDS: FUROSEMIDE 100MG/10ML VIAL (J1940) IV SCH ×2 (10:11→21:21)
[2020-11-20] MEDS ORDERED: NITROGLYCERIN 0.4 MG SUBL TABLET SL PRN (11:30)
[2020-11-20] MEDS ORDERED: NYSTATIN 100,000 UNITS/GM TOPICAL PWD 15 GM TOP PRN (11:30)
[2020-11-20 13:10] LABS: CK-MB VALUE MASS 3.2 NG/ML (<3.6); MB/CK RELATIVE INDEX 7.8 (< OR =4); TROPONIN I 0.04 NG/ML (< 0.10)
[2020-11-20] MEDS: POTASSIUM CHLORIDE 10MEQ SR TABLET PO SCH ×2 (16:20→21:21)
[2020-11-20] MEDS ORDERED: SODIUM BICARBONATE 8.4% INJ 50MEQ 50 ML VIAL As Ordered ONE (16:43)
[2020-11-20 17:52] LABS: SPEC. GRAVITY BODY FLUIDS 1.013 (NOT ESTABLISHED)
[2020-11-20 17:53] LABS: APPEARANCE, BODY FLUID HAZY (CLEAR); ASCITES FL COLOR PALE YELLOW (COLORLESS); SOURCE, BODY FLUID ASCITES
[2020-11-20] MEDS: ASPIRIN 81MG ENTERIC TABLET PO SCH (19:40)
[2020-11-20 20:19] LABS: SOURCE, BODY FLUID ALBUMIN ASCITES; SOURCE, BODY FLUID GLUCOSE ASCITES; SOURCE, BODY FLUID TOT PROTEIN ASCITES; TOTAL PROTEIN, BODY FLUID 1.2 G/DL (NOT ESTABLISHED)
[2020-11-20] MEDS ORDERED: ROSUVASTATIN 10 MG TAB (CRESTOR) PO SCH (21:00)
[2020-11-20] MEDS ORDERED: rOPINIRole 1MG TAB PO SCH (21:00)
[2020-11-20 21:21] LABS: CK-MB VALUE MASS 3.2 NG/ML (<3.6); TROPONIN I 0.03 NG/ML (< 0.10)
[2020-11-21] VITALS: BP 108/73
[2020-11-21 04:02] VITALS: BP 96/46
[2020-11-21 05:49] LABS: BASO % 0.2 % (0.0-1.0); EOS # 0.1 10^3/uL (0.0-0.5); EOS % 0.7 % (0.0-3.0); HEMOGLOBIN 12.7 g/dl (13.5-17.5); LYMPH # 1.4 10^3/uL (1.5-5.0); LYMPH % 10.3 % (24.0-44.0); MEAN CORPUSCULAR HEMOGLOBIN 28.2 pg (27.0-33.0); MEAN CORPUSCULAR HGB CONC 32.6 g/dl (32.0-36.5); MEAN CORPUSCULAR VOLUME 86.7 fl (80.0-96.0); MONO # 0.9 10^3/uL (0.0-0.8); MONO % 6.9 % (2.0-8.0); NEUTROPHILS # 10.9 10^3/uL (1.5-8.5); NEUTROPHILS % 81.5 % (36.0-66.0); PLATELET COUNT, AUTOMATED 106 10^3/uL (150-450); WHITE BLOOD COUNT 13.4 10^3/uL (4.0-10.0)
[2020-11-21] MEDS ORDERED: CIPROFLOXACIN 500MG TABLET PO SCH (06:00)
[2020-11-21 06:21] LABS: ALBUMIN 2.3 GM/DL (3.2-5.2); BILIRUBIN,TOTAL 2.2 MG/DL (0.2-1.0); CALCIUM LEVEL 8.7 MG/DL (8.8-10.2); CREATININE FOR GFR 1.81 MG/DL (0.70-1.30); GLOMERULAR FILTRATION RATE 38.9 (>42); MAGNESIUM LEVEL 2.1 MG/DL (1.8-2.4); POTASSIUM SERUM 3.7 MEQ/L (3.5-5.1); TOTAL PROTEIN 5.7 GM/DL (6.4-8.2)
[2020-11-21] MEDS: METOPROLOL 5 MG/5 ML VIAL IV SCH ×2 (06:30→12:00)
[2020-11-21 08:00] VITALS: BP 110/62
[2020-11-21] MEDS ORDERED: PANTOPRAZOLE 40MG TAB (PROTONIX) PO SCH (09:00)
[2020-11-21] MEDS: POTASSIUM CHLORIDE 10MEQ SR TABLET PO SCH (10:04)
[2020-11-21] MEDS: ASPIRIN 81MG ENTERIC TABLET PO SCH (10:04)
[2020-11-21 12:00] VITALS: BP 108/58
[2020-11-21 13:12] LABS: ANTINUCLEAR ANTIBODIES DIRECT Negative (Negative)
[2020-11-21] MEDS ORDERED: LORazepam 1 MG TAB PO PRN (14:05)
[2020-11-21] MEDS ORDERED: HYOSCYAMINE SULFATE 0.125 MG SUBL TABLET PO PRN (14:05)
[2020-11-21] MEDS ORDERED: BISACODYL 10 MG SUPP PR PRN (14:05)
[2020-11-21] MEDS ORDERED: MORPHINE 10MG/0.5ML ORAL CONCENTRATE SOLUTION U/D SL PRN (14:05)
[2020-11-21] MEDS ORDERED: ONDANSETRON 4 MG ORAL DISINTEGRATING TAB PO PRN (14:05)
[2020-11-21] MEDS ORDERED: ATROPINE SULFATE 1% OP SOLN 2 ML BTL SL PRN (14:05)
[2020-11-21] MEDS ORDERED: FLEET ENEMA PR PRN (14:05)
[2020-11-21] MEDS ORDERED: SCOPOLAMINE 1MG TRANSDERMAL PATCH TOP PRN (14:05)
[2020-11-21] MEDS ORDERED: ONDANSETRON 4MG/2ML VIAL IV PRN (14:05)
[2020-11-21] MEDS ORDERED: MORPHINE 2 MG/ML 1ML VIAL (J2270) IV PRN (14:05)
[2020-11-21] MEDS ORDERED: ATIV1TAB7 PO (14:11)
[2020-11-21] MEDS ORDERED: BISA10SU PR (14:11)
[2020-11-21] MEDS ORDERED: FLEEENE12 PR (14:11)
[2020-11-21] MEDS ORDERED: ATRO1OPD SL (14:11)
[2020-11-21] MEDS ORDERED: ONDA4TAB6 PO (14:11)
[2020-11-21] MEDS ORDERED: MORP1SOL SL (14:11)
[2020-11-21] MEDS ORDERED: HYOS125TA PO (14:11)
[2020-11-21] MEDS ORDERED: TRAN1DIS4 TOP (14:11)
[2020-11-21] MEDS ORDERED: MORPHINE SULF IN 0.9% NACL 100 MG in IV 1 EA IV SCH ×2 (17:00)
[2020-11-28 18:11] LABS: ANTI-HISTONE ANTIBODIES 0.9 Units (0.0-0.9); ANTI-MITOCHONDRIAL ANTIBODY <20.0 Units (0.0-20.0); ANTI-SMOOTH MUSCLE ANTIBODY 26 Units (0-19); HLA-B27 Negative (.); TISSUE TRANSGLUTAMINASE IgA <2 U/mL (0-3); TISSUE TRANSGLUTAMINASE IgG 3 U/mL (0-5); UNITSIGA FOR GLIADIN IGA 4 units (0-19); UNITSIGG FOR GLIADIN IGG 1 units (0-19)
== END 2020-11-21 19:00 | disposition hospice, home (50) | DRG 432 ==
LOC: EDBD 16:21 → M ED 16:21 → M ED INP 22:16 → ENRESERV 11-20 03:24 → M PCU 11-20 03:40
PROVIDERS: ADMIT Internal Medicine; ATTEND Internal Medicine
PROC: 0W9G3ZZ Drainage of Peritoneal Cavity, Percutaneous Approach (ICD-10-PCS; principal; 2020-11-20 15:00)
DX: K74.60 Unspecified cirrhosis of liver (principal); K72.00 Acute and subacute hepatic failure without coma; R18.8 Other ascites; N17.9 Acute kidney failure, unspecified; I48.20 Chronic atrial fibrillation, unspecified; I13.0 Hypertensive heart and chronic kidney disease with heart failure and stage 1 through stage 4 chronic kidney disease, or unspecified chronic kidney disease; N18.30 Chronic kidney disease, stage 3 unspecified; M10.9 Gout, unspecified; G25.81 Restless legs syndrome; E78.5 Hyperlipidemia, unspecified; K21.9 Gastro-esophageal reflux disease without esophagitis; I25.10 Atherosclerotic heart disease of native coronary artery without angina pectoris; Z95.1 Presence of aortocoronary bypass graft; Z86.73 Personal history of transient ischemic attack (TIA), and cerebral infarction without residual deficits; E11.9 Type 2 diabetes mellitus without complications; I50.9 Heart failure, unspecified; Z85.820 Personal history of malignant melanoma of skin; Z51.5 Encounter for palliative care; Z79.899 Other long term (current) drug therapy; Z98.41 Cataract extraction status, right eye; Z98.42 Cataract extraction status, left eye; Z96.642 Presence of left artificial hip joint; Z87.891 Personal history of nicotine dependence; E66.9 Obesity, unspecified; Z66 Do not resuscitate